=== PATIENT | female | born 1975 | race Caucasian/White ===

== ENCOUNTER 2017-01-29 15:07 | Emergency (ER) | payer SELFPAY ==
[2017-01-29 15:11] VITALS: BP 134/77; BMI 35.6
--- NOTE | 2017-01-29 15:35 | DR.GENAD ---
HPI - PCP Primary Care Physician: SURINDER - HPI Comment HPI Comment: PATIENT SARTED WITH N/V/D YESTERDAY. SHE IS WEAK AND DIZZY. NO FEVER. ABDOMEN IS CRAMPING. SHE IS A DIABETIC ON INSULIN. ORAL INTAKE IS DECREASE. NO HISTORY OF GASTROPARESIS. - Complaint/Symptoms Chief Complaint Doctors Comments: N/V/D AND ABDOMINAL PAIN TIMES ONE DAY. Chief Complaint:: PT. C/O N/V/D, ABDOMINAL PAIN, KIDNEY PAIN, CHILLS, SWEATS, LIGHTHEADEDNESS. - Nurses notes reviewed Nurses Notes Review: Yes - Source History Provided: Patient - Mode of Arrival Mode of Arrival: Ambulatory - Timing Onset of Chief Complaint: 01/28/17 Came on: Suddenly - Duration Duration: Constant Duration: Days - Severity Severity: Moderate PMH - PMH Past Medical History: Yes Past Medical History: Angina, Arthritis, Diabetes, Dyslipidemia, Hypothyroidism Past Surgical History: Yes Surgical History: , Cholecystectomy, Hysterectomy, Tonsillectomy - Family History History of Family Medical Conditions: Yes Family Medical History: Diabetes Mellitus, Cancer, [place], Heart Failure, Hypertension - Social History Does patient currently use any type of tobacco product: Yes Have you used tobacco products in the last 12 months: Yes Type of Tobacco Use: Cigarettes How many years tobacco product used: 10 Does any household member use tobacco: No Alcohol Use: Rarely Do you use any recreational Drugs:: No Lives With: Family Lives Where: Home - infectious screening In the last 2 months have you had wt loss of >10#?: NO Have you had fever, night sweats or hemotysis?: No Have you traveled outside the country in the last 6 months?: No Isolation: Standard ROS - Review of Systems Constitutional: Chills, Diaphoresis, Weakness, Fatigue, Loss of Appetite. negative: Fever Eyes: No Symptoms Reported. negative: Eye Pain, Discharge ENTM: No Symptoms Reported. negative: Ear Pain, Nose Discharge, Nose Congestion , Throat Pain Respiratoy: No Symptoms Reported. negative: Productive Cough, Non-Productive Cough, Short of Breath, Wheezing, Hemoptysis Cardiovascular: No Symptoms Reported. negative: Chest Pain, Edema Gastrointestinal/Abdominal: Abdominal Pain, Diarrhea, Nausea, Vomiting Genitourinary: No Symptoms Reported. negative: Dysuria, Frequency, Hematuria Neurological: Weakness, Dizziness. negative: Headache Musculoskeletal: Muscle Pain Integumentary: No Symptoms Reported Hematologic/Lymphatic: No Symptoms Reported Endocrine: Increased Thirst. negative: Increased Urine (DECREASE) All Other Systems: Reviewed and Negative PE - Vital Signs Vitals: Temperature 98.1 F Pulse Rate 95 Respiratory Rate 16 Blood Pressure [Right Arm] 130/76 Blood Pressure 134/77 O2 Sat by Pulse Oximetry 97 - General Limitations: No Limitations General Appearance: Alert - Head Head Exam: Normal Inspection - Eyes Eye exam: Normal Appearance - ENT ENT Exam: Normal External Ear Exam TM/Canal Exam: Bilateral Normal Nose Exam: Normal Nose Exam Mouth Exam: Normal Inspection Throat Exam: Normal Inspection - Neck Neck Exam: Trachea Midline. negative: Tenderness, Meningismus, Lymphadenopathy - Chest Chest Inspection: Symmetric Chest Wall Rise - Respiratory Respiratory Exam: Normal Lung Sounds Bilat Respiratory Exam: Bilateral Clear to Auscultation - Cardiovascular Cardiovascular Exam: Regular Rate, Normal Rhythm, Normal Heart Sounds - Abdominal Exam Abdominal Exam: Normal Bowel Sounds, Soft, Tenderness Abdominal Tenderness: Diffuse, Moderate - Extremities Extremities Exam: Normal Inspection - Back Back Exam: Normal Inspection - Neurologic Neurological Exam: Alert, Oriented X3, CN II-XII Intact, Normal Gait, Reflexes Normal. negative: Motor Sensory Deficit - Psychiatric Psychiatric Exam: Normal Affect, Normal Mood - Skin Skin Exam: Normal Color MDM - Differential Diagnosis Differential Diagnosis: ABDOMINAL PAIN, GASTROENTERITIS, UTI, BOWEL OBSTRUCTION , DKA Course - Treatment Treatment: SEE ORDERS. - Education/Counseling Education/Counseling: Patient, Education Educated On: Diagnosis, Needs for Follow Up ROR - Labs Reviewed Laboratory Results Reviewed?: Yes Result Diagrams: 01/29/17 16:18 01/29/17 16:18 Laboratory: WBC 9.5 X10^3/uL (3.6-10.0) 01/29/17 16:18 RBC 4.94 X10^6/uL (3.5-5.4) 01/29/17 16:18 Hgb 15.4 g/dL (12.0-16.0) 01/29/17 16:18 Hct 44.5 % (36.0-47.0) 01/29/17 16:18 MCV 90.1 fL (80.0-100.0) 01/29/17 16:18 MCH 31.2 pg (27.0-34.0) 01/29/17 16:18 MCHC 34.7 g/dL (33.0-35.0) 01/29/17 16:18 RDW 13.2 % (11.6-16.5) 01/29/17 16:18 Plt Count 244 X10^3/uL (150.0-450.0) 01/29/17 16:18 MPV 9.2 fL (7.4-11.0) 01/29/17 16:18 Neut % 59.2 % (42.0-75.0) 01/29/17 16:18 Lymph % 28.7 % (21.0-51.0) 01/29/17 16:18 [place] % 5.4 % (0.0-13.0) 01/29/17 16:18 Eos % 5.8 % (0.9-2.9) H 01/29/17 16:18 Baso % 0.9 % (0.2-1.0) 01/29/17 16:18 Neut # 5.7 x10^3/uL (2.2-4.8) H 01/29/17 16:18 Lymph # 2.7 X10^3/uL (1.3-2.9) 01/29/17 16:18 [place] # 0.5 x10^3/uL (0.3-0.8) 01/29/17 16:18 Eos # 0.6 x10^3/uL (0.0-0.2) H 01/29/17 16:18 Baso # 0.1 X10^3/uL (0.0-0.1) 01/29/17 16:18 Absolute Nucleated RBC 0.0 /100WBC 01/29/17 16:18 Sodium 138 mmol/L (136-145) 01/29/17 16:18 Corrected Sodium 142 mmol/L (136-145) 01/29/17 16:18 Potassium 4.0 mmol/L (3.5-5.1) 01/29/17 16:18 Chloride 101 mmol/L (98-107) 01/29/17 16:18 Carbon Dioxide 24.9 mmol/L (21-32) 01/29/17 16:18 BUN 9 mg/dL (7-18) 01/29/17 16:18 Creatinine 0.87 mg/dL (0.55-1.02) 01/29/17 16:18 Est GFR (MDRD) Af Amer > 60 (>60) 01/29/17 16:18 Est GFR (MDRD) Non-Af > 60 (>60) 01/29/17 16:18 Glucose 263 mg/dL (65-99) H 01/29/17 16:18 Calcium 9.0 mg/dL (8.5-10.1) 01/29/17 16:18 Corrected Calcium TNP 01/29/17 16:18 Total Bilirubin 0.50 mg/dL (0.2-1.0) 01/29/17 16:18 AST 12 Units/L (15-37) L 01/29/17 16:18 ALT 15 Units/L (12-78) 01/29/17 16:18 Alkaline Phosphatase 93 Units/L (46-116) 01/29/17 16:18 Total Protein 7.4 g/dL (6.4-8.2) 01/29/17 16:18 Albumin 3.7 g/dL (3.4-5.0) 01/29/17 16:18 Globulin 3.7 g/dL (2.5-4.5) 01/29/17 16:18 Albumin/Globulin Ratio 1.0 Ratio (1.1-2.1) L 01/29/17 16:18 Amylase 23 Units/L (25-115) L 01/29/17 16:18 Lipase 87 Units/L (73-393) 01/29/17 16:18 Specimen Type Clean catch urine 01/29/17 15:50 Urine Color Yellow (YELLOW) 01/29/17 15:50 Urine Appearance Clear (CLEAR) 01/29/17 15:50 Urine pH 5.0 (5.0 - 8.0) 01/29/17 15:50 Ur Specific [place] 1.015 (1.000-1.030) 01/29/17 15:50 Urine Protein Negative (NEGATIVE) 01/29/17 15:50 Urine Glucose (UA) 4+ (NEGATIVE) 01/29/17 15:50 Urine Ketones Negative (NEGATIVE) 01/29/17 15:50 Urine Occult Blood Negative (NEGATIVE) 01/29/17 15:50 Urine Nitrite Negative (NEGATIVE) 01/29/17 15:50 Urine Bilirubin Negative (NEGATIVE) 01/29/17 15:50 Urine Urobilinogen Normal (NORMAL) 01/29/17 15:50 Ur Leukocyte Esterase 1+ (NEGATIVE) 01/29/17 15:50 Urine RBC 0-1 /HPF (NEGATIVE) 01/29/17 15:50 Urine WBC 1-2 /HPF (NEGATIVE) 01/29/17 15:50 Ur Squamous Epith Cells Few /HPF (NEGATIVE) 01/29/17 15:50 Urine Bacteria Trace /HPF (NEGATIVE) 01/29/17 15:50 Urine Yeast Few /HPF (NEGATIVE) 01/29/17 15:50 Ur Culture Indicated? No/not indicated 01/29/17 15:50 Acetone, Semi-Quant Negative (NEGATIVE) 01/29/17 16:18 - XRAY XRAY Interpreted by: Radiologist XRAY Findings: REPORT DISCUSS WITH PATIENT. - Diagnosis Discharge Problem: Candidal urinary tract infection, Gastroenteritis - Discharge Plan Disposition: HOME, SELF-CARE Condition: Stable Prescriptions: Diphenoxylate/Atropine [Lomotil] 1 tab PO TID PRN #15 tab PRN Reason: Fluconazole [DIFLUCAN TAB 150 MG *] 150 mg PO ONCE #2 tab Ondansetron HCl [Zofran Tab 4 mg] 4 mg PO Q8H PRN #15 tab PRN Reason: Nausea/Vomiting - Follow ups/Referrals Follow ups/Referrals: DIANA CADENA [Primary Care Provider] - 2 days - Instructions Instructions: Viral Gastroenteritis, Adult, Vgor-ag-[id number], Abdominal Pain, Adult , Ustq-yz-[id number] Additional Instructions: RETURN TO ED IF WORSE.
[2017-01-29] MEDS ORDERED: ZOFRAN INJ 4 MG VIAL IM ONE (15:39)
[2017-01-29] MEDS ORDERED: ZOFRAN INJ 4 MG VIAL ONE (15:40)
[2017-01-29 16:05] LABS: BILIRUBIN,URINE NEGATIVE (NEGATIVE); BLOOD/HEMOGLOBIN,URINE NEGATIVE (NEGATIVE); GLUCOSE, URINE 4+ (NEGATIVE); KETONES,URINE NEGATIVE (NEGATIVE); LEUKOCYTE ESTERASE ,URINE 1+ (NEGATIVE); NITRITES,URINE NEGATIVE (NEGATIVE); PROTEIN,URINE NEGATIVE (NEGATIVE); UROBILINOGEN,URINE NORMAL (NORMAL)
--- NOTE | 2017-01-29 16:11 | RAD ---
HISTORY: Abdominal pain, nausea, vomiting Study: Acute abdominal series Comparison: 02/23/2015 Findings: The lungs are clear without consolidation, effusion or pneumothorax. The cardiac and mediastinal co ntours are within normal limits. Flat plate and upright evaluation of the abdomen demonstrates a normal bowel gas pattern. No gross f ree intraperitoneal air. No pathological soft tissue mass or calcification can be observed. The bon y structures are grossly intact. Cholecystectomy clips noted. IMPRESSION: 1. No acute cardiopulmonary disease. 2. No evidence of acute abdominal pathology. Reported By:
[2017-01-29 16:25] LABS: APPEARANCE,URINE CLEAR (CLEAR); BACTERIA,URINE TRACE /HPF (NEGATIVE); COLOR,URINE YELLOW (YELLOW); RBC,URINE 0-1 /HPF (NEGATIVE); SQUAMOUS EPITHELIAL CELL,UR FEW /HPF (NEGATIVE)
[2017-01-29 16:26] LABS: YEAST,URINE FEW /HPF (NEGATIVE)
[2017-01-29 16:37] LABS: BASOPHILS # (AUTO) 0.1 X10^3/uL (0.0-0.1); BASOPHILS % (AUTO) 0.9 % (0.2-1.0); EOSINOPHILS # (AUTO) 0.6 x10^3/uL (0.0-0.2); EOSINOPHILS % (AUTO) 5.8 % (0.9-2.9); HEMATOCRIT 44.5 % (36.0-47.0); HEMOGLOBIN 15.4 g/dL (12.0-16.0); LYMPHOCYTES # (AUTO) 2.7 X10^3/uL (1.3-2.9); LYMPHOCYTES % (AUTO) 28.7 % (21.0-51.0); MEAN CORPUSCULAR HEMOGLOBIN 31.2 pg (27.0-34.0); MEAN CORPUSCULAR HGB CONC 34.7 g/dL (33.0-35.0); MEAN CORPUSCULAR VOLUME 90.1 fL (80.0-100.0); MEAN PLATELET VOLUME 9.2 fL (7.4-11.0); MONOCYTES # (AUTO) 0.5 x10^3/uL (0.3-0.8); MONOCYTES % (AUTO) 5.4 % (0.0-13.0); NEUTROPHILS # (AUTO) 5.7 x10^3/uL (2.2-4.8); NEUTROPHILS % (AUTO) 59.2 % (42.0-75.0); PLATELET COUNT 244 X10^3/uL (150.0-450.0); RED BLOOD COUNT 4.94 X10^6/uL (3.5-5.4); RED CELL DISTRIBUTION WIDTH 13.2 % (11.6-16.5); WHITE BLOOD COUNT 9.5 X10^3/uL (3.6-10.0)
[2017-01-29 16:58] LABS: ALANINE AMINOTRANSFERASE 15 Units/L (12-78); ALBUMIN 3.7 g/dL (3.4-5.0); ALKALINE PHOSPHATASE 93 Units/L (46-116); AMYLASE 23 Units/L (25-115); ASPARTATE AMINO TRANSFERASE 12 Units/L (15-37); BLOOD UREA NITROGEN 9 mg/dL (7-18); CARBON DIOXIDE 24.9 mmol/L (21-32); CHLORIDE 101 mmol/L (98-107); COR NA(FOR HYPERGLY) 142 mmol/L (136-145); CREATININE 0.87 mg/dL (0.55-1.02); GLUCOSE 263 mg/dL (65-99); LIPASE 87 Units/L (73-393); SODIUM 138 mmol/L (136-145); TOTAL PROTEIN 7.4 g/dL (6.4-8.2); eGFR BLACK RACES > 60 (>60); eGFR NON BLACK RACES > 60 (>60)
== END 2017-01-29 18:23 | disposition home or self-care (01) ==
LOC: ER 15:21
DX: N39.0 Urinary tract infection, site not specified (principal); B37.49 Other urogenital candidiasis; K52.89 Other specified noninfective gastroenteritis and colitis
CPT/HCPCS: 36415; 74022; 80053; 81001; 82009; 82150; 83690; 85025; 96372; 99283; J2405

== ENCOUNTER 2017-10-16 00:26 | Emergency (ER) | payer SELFPAY ==
[2017-10-16 00:37] VITALS: BMI 29.2
--- NOTE | 2017-10-16 01:07 | DR.GENAD ---
HPI - PCP Primary Care Physician: CADENA - Complaint/Symptoms Chief Complaint:: STOMACH PAIN; VOMITING BILE; PAIN ON LEFT SIDE OF ABDOMEN AND BACK; PAIN UPON URINATION; HYSTERECTOMY YEARS AGO - Source History Provided: Patient - Mode of Arrival Mode of Arrival: Ambulatory - Timing Onset of Chief Complaint: 10/13/17 PMH - PMH Past Medical History: Yes Past Medical History: Coronary Artery Disease, Depression, Diabetes, Hypothyroidism Past Medical History Comment: TAKEN HUMULOG BID Past Surgical History: Yes Surgical History: , Cholecystectomy Past Surgical History Comment: HERNIA REPAIR - Family History History of Family Medical Conditions: No Family Medical History: Diabetes Mellitus, Cancer, [place], Heart Failure, Hypertension - Social History Alcohol Use: None Do you use any recreational Drugs:: No Lives With: Alone - infectious screening In the last 2 months have you had wt loss of >10#?: NO Have you had fever, night sweats or hemotysis?: No Have you traveled outside the country in the last 6 months?: No Isolation: Standard PE - Vital Signs Vitals: Temperature 97.3 F Pulse Rate 81 Respiratory Rate 22 Blood Pressure [Right Arm] 130/76 Blood Pressure 148/67 O2 Sat by Pulse Oximetry 95 ROR - Labs Reviewed Result Diagrams: 10/16/17 01:18 10/16/17 01:18 Laboratory: WBC 9.9 X10^3/uL (3.6-10.0) 10/16/17 01:18 RBC 4.28 X10^6/uL (3.5-5.4) 10/16/17 01:18 Hgb 13.5 g/dL (12.0-16.0) 10/16/17 01:18 Hct 39.6 % (36.0-47.0) 10/16/17 01:18 MCV 92.4 fL (80.0-100.0) 10/16/17 01:18 MCH 31.6 pg (27.0-34.0) 10/16/17 01:18 MCHC 34.2 g/dL (33.0-35.0) 10/16/17 01:18 RDW 13.0 % (11.6-16.5) 10/16/17 01:18 Plt Count 306 X10^3/uL (150.0-450.0) 10/16/17 01:18 MPV 8.5 fL (7.4-11.0) 10/16/17 01:18 Neut % 43.5 % (42.0-75.0) 10/16/17 01:18 Lymph % 37.3 % (21.0-51.0) 10/16/17 01:18 [place] % 7.6 % (0.0-13.0) 10/16/17 01:18 Eos % 10.5 % (0.9-2.9) H 10/16/17 01:18 Baso % 1.1 % (0.2-1.0) H 10/16/17 01:18 Neut # 4.3 x10^3/uL (2.2-4.8) 10/16/17 01:18 Lymph # 3.7 X10^3/uL (1.3-2.9) H 10/16/17 01:18 [place] # 0.7 x10^3/uL (0.3-0.8) 10/16/17 01:18 Eos # 1.0 x10^3/uL (0.0-0.2) H 10/16/17 01:18 Baso # 0.1 X10^3/uL (0.0-0.1) 10/16/17 01:18 Absolute Nucleated RBC 0.1 /100WBC 10/16/17 01:18 Sodium 136 mmol/L (136-145) 10/16/17 01:18 Corrected Sodium 143 mmol/L (136-145) 10/16/17 01:18 Potassium 4.6 mmol/L (3.5-5.1) 10/16/17 01:18 Chloride 99 mmol/L (98-107) 10/16/17 01:18 Carbon Dioxide 28.3 mmol/L (21-32) 10/16/17 01:18 BUN 13 mg/dL (7-18) 10/16/17 01:18 Creatinine 0.94 mg/dL (0.55-1.02) 10/16/17 01:18 Est GFR (MDRD) Af Amer > 60 (>60) 10/16/17 01:18 Est GFR (MDRD) Non-Af > 60 (>60) 10/16/17 01:18 Glucose 388 mg/dL (65-99) H 10/16/17 01:18 Calcium 8.8 mg/dL (8.5-10.1) 10/16/17 01:18 Corrected Calcium TNP 10/16/17 01:18 Total Bilirubin 0.20 mg/dL (0.2-1.0) 10/16/17 01:18 AST 7 Units/L (15-37) L 10/16/17 01:18 ALT 18 Units/L (12-78) 10/16/17 01:18 Alkaline Phosphatase 113 Units/L (46-116) 10/16/17 01:18 C-Reactive Protein 3.00 mg/L (0-3.0) 10/16/17 01:18 Total Protein 7.0 g/dL (6.4-8.2) 10/16/17 01:18 Albumin 3.4 g/dL (3.4-5.0) 10/16/17 01:18 Globulin 3.6 g/dL (2.5-4.5) 10/16/17 01:18 Albumin/Globulin Ratio 0.9 Ratio (1.1-2.1) L 10/16/17 01:18 Lipase 242 Units/L (73-393) 10/16/17 01:18 Specimen Type Clean catch urine 10/16/17 00:44 Urine Color Yellow (YELLOW) 10/16/17 00:44 Urine Appearance Clear (CLEAR) 10/16/17 00:44 Urine pH 6.0 (5.0 - 8.0) 10/16/17 00:44 Ur Specific [place] 1.015 (1.000-1.030) 10/16/17 00:44 Urine Protein Negative (NEGATIVE) 10/16/17 00:44 Urine Glucose (UA) 4+ (NEGATIVE) 10/16/17 00:44 Urine Ketones Negative (NEGATIVE) 10/16/17 00:44 Urine Occult Blood Negative (NEGATIVE) 10/16/17 00:44 Urine Nitrite Negative (NEGATIVE) 10/16/17 00:44 Urine Bilirubin Negative (NEGATIVE) 10/16/17 00:44 Urine Urobilinogen Normal (NORMAL) 10/16/17 00:44 Ur Leukocyte Esterase Negative (NEGATIVE) 10/16/17 00:44 Urine RBC 0-3 /HPF (NEGATIVE) 10/16/17 00:44 Urine WBC 0-3 /HPF (NEGATIVE) 10/16/17 00:44 Ur Squamous Epith Cells Rare /HPF (NEGATIVE) 10/16/17 00:44 Urine Bacteria Negative /HPF (NEGATIVE) 10/16/17 00:44 Ur Culture Indicated? No/not indicated 10/16/17 00:44 Acetone, Semi-Quant Negative (NEGATIVE) 10/16/17 01:18 H. pylori IgG Antibody Negative (NEGATIVE) 10/16/17 01:18 - XRAY XRAY Interpreted by: Radiologist (KUB: The lungs are clear without focal infiltrate or effusion. The bony thorax is unremarkable. Flat and upright evaluation of the abdomen demonstrates a mild increased amount of fecal material within the rectum and colon. No pathological soft tissue mass or calcification can be observed. The bony structures are grossly intack. Impression: No acute cardiopulmonary disease. Mild constipation) - Diagnosis Discharge Problem: Elevated serum glucose Constipation Qualifiers: Constipation type: slow transit constipation Qualified Code(s): K59.01 - Slow transit constipation - Discharge Plan Condition: Stable - Follow ups/Referrals Follow ups/Referrals: DIANA CADENA [Primary Care Provider] - 3 days - Instructions
[2017-10-16] MEDS ORDERED: NS 1000 ML 1,000 ML IV ONE (01:08)
[2017-10-16 01:09] LABS: BILIRUBIN,URINE NEGATIVE (NEGATIVE); BLOOD/HEMOGLOBIN,URINE NEGATIVE (NEGATIVE); GLUCOSE, URINE 4+ (NEGATIVE); KETONES,URINE NEGATIVE (NEGATIVE); LEUKOCYTE ESTERASE ,URINE NEGATIVE (NEGATIVE); NITRITES,URINE NEGATIVE (NEGATIVE); PROTEIN,URINE NEGATIVE (NEGATIVE); UROBILINOGEN,URINE NORMAL (NORMAL)
[2017-10-16] MEDS ORDERED: NS 1000 ML 1,000 ML ONE (01:09)
[2017-10-16 01:16] LABS: APPEARANCE,URINE CLEAR (CLEAR); BACTERIA,URINE NEGATIVE /HPF (NEGATIVE); COLOR,URINE YELLOW (YELLOW); RBC,URINE 0-3 /HPF (NEGATIVE); SQUAMOUS EPITHELIAL CELL,UR RARE /HPF (NEGATIVE)
[2017-10-16 01:30] LABS: BASOPHILS # (AUTO) 0.1 X10^3/uL (0.0-0.1); BASOPHILS % (AUTO) 1.1 % (0.2-1.0); EOSINOPHILS % (AUTO) 10.5 % (0.9-2.9); HEMATOCRIT 39.6 % (36.0-47.0); HEMOGLOBIN 13.5 g/dL (12.0-16.0); LYMPHOCYTES # (AUTO) 3.7 X10^3/uL (1.3-2.9); LYMPHOCYTES % (AUTO) 37.3 % (21.0-51.0); MEAN CORPUSCULAR HEMOGLOBIN 31.6 pg (27.0-34.0); MEAN CORPUSCULAR HGB CONC 34.2 g/dL (33.0-35.0); MEAN CORPUSCULAR VOLUME 92.4 fL (80.0-100.0); MEAN PLATELET VOLUME 8.5 fL (7.4-11.0); MONOCYTES # (AUTO) 0.7 x10^3/uL (0.3-0.8); MONOCYTES % (AUTO) 7.6 % (0.0-13.0); NEUTROPHILS # (AUTO) 4.3 x10^3/uL (2.2-4.8); NEUTROPHILS % (AUTO) 43.5 % (42.0-75.0); PLATELET COUNT 306 X10^3/uL (150.0-450.0); RED BLOOD COUNT 4.28 X10^6/uL (3.5-5.4); WHITE BLOOD COUNT 9.9 X10^3/uL (3.6-10.0)
[2017-10-16 01:37] LABS: ALANINE AMINOTRANSFERASE 18 Units/L (12-78); ALBUMIN 3.4 g/dL (3.4-5.0); ALKALINE PHOSPHATASE 113 Units/L (46-116); ASPARTATE AMINO TRANSFERASE 7 Units/L (15-37); BLOOD UREA NITROGEN 13 mg/dL (7-18); CALCIUM 8.8 mg/dL (8.5-10.1); CARBON DIOXIDE 28.3 mmol/L (21-32); CHLORIDE 99 mmol/L (98-107); COR NA(FOR HYPERGLY) 143 mmol/L (136-145); CREATININE 0.94 mg/dL (0.55-1.02); LIPASE 242 Units/L (73-393); SODIUM 136 mmol/L (136-145); eGFR BLACK RACES > 60 (>60); eGFR NON BLACK RACES > 60 (>60)
--- NOTE | 2017-10-16 01:59 | RAD ---
Acute abdominal series Indication: Abdominal pain Comparison: None available Findings: The trachea is midline. The cardiac silhouette is unremarkable. The lungs are clear without focal i nfiltrate or effusion. The bony thorax is unremarkable. Flat and upright evaluation of the abdomen demonstrates a mild increased amount of fecal material wit hin the rectum and colon. No pathological soft tissue mass or calcification can be observed. The bon y structures are grossly intact. IMPRESSION: 1. No acute cardiopulmonary disease. 2. Mild constipation. Reported By:
[2017-10-16] MEDS ORDERED: HumuLIN R SUBCUT PRN (02:44)
[2017-10-16] MEDS ORDERED: HumuLIN R ONE (02:45)
[2017-10-16] MEDS ORDERED: CITROMA PO ONE (02:47)
[2017-10-16] MEDS ORDERED: CITROMA ONE (02:50)
[2017-10-16 02:56] VITALS: BP 116/80
[2017-10-16] MEDS ORDERED: SNACK - Diabetic Appropriate PO SCH (20:00)
== END 2017-10-16 02:54 | disposition home or self-care (01) ==
LOC: ER 00:26
DX: K59.01 Slow transit constipation (principal); R73.09 Other abnormal glucose
CPT/HCPCS: 36415; 74022; 80053; 81001; 82009; 83690; 85025; 86140; 86677; 96365; 96372; 99283; A4222; J1815

== ENCOUNTER 2018-01-19 13:32 | Emergency (ER) | payer SELFPAY ==
[2018-01-19 13:35] VITALS: BP 113/57; BMI 29.2
--- NOTE | 2018-01-19 14:22 | DR.GENAD ---
HPI - HPI Comment HPI Comment: VOICE CHANGE SLIGHTLY. GETTING WORSE. PATIENT IS A DIABETIC ON LANTUS AND HUMALIN R INSULIN. - Complaint/Symptoms Chief Complaint Doctors Comments: SORE THROAT, COUGH, HEADACHE AND DIZZINESS TIMES ONE ASSOCIATED WITH CHILLS. Chief Complaint:: PT. C/O SORE THROAT, HEADACHE, BURNING IN THROAT AND CHEST, COUGH, DIZZINESS AND CHILLS. - Nurses notes reviewed Nurses Notes Review: Yes - Source History Provided: Patient - Mode of Arrival Mode of Arrival: Ambulatory - Timing Onset of Chief Complaint: 01/18/18 Came on: Suddenly - Duration Duration: Constant Duration: Days - Severity Severity: Moderate PMH - PMH Past Medical History: Yes Past Medical History: Coronary Artery Disease, Depression, Diabetes, Hypothyroidism Past Surgical History: Yes Surgical History: , Cholecystectomy, Hysterectomy - Family History History of Family Medical Conditions: Yes Family Medical History: Diabetes Mellitus, Cancer, [place], Heart Failure, Hypertension - Social History Does patient currently use any type of tobacco product: Yes Have you used tobacco products in the last 12 months: Yes Type of Tobacco Use: Cigarettes Does any household member use tobacco: No Alcohol Use: None Do you use any recreational Drugs:: No Lives With: Family Lives Where: Home - infectious screening In the last 2 months have you had wt loss of >10#?: NO Have you had fever, night sweats or hemotysis?: No Have you traveled outside the country in the last 6 months?: No Isolation: Standard ROS - Review of Systems Constitutional: Chills, Weakness, Fatigue Eyes: No Symptoms Reported. negative: Eye Pain, Discharge ENTM: Nose Discharge, Nose Congestion, Throat Pain. negative: Ear Discharge Respiratoy: Productive Cough (BROWN SPUTUM), Short of Breath. negative: Wheezing, Hemoptysis Cardiovascular: Chest Pain. negative: Edema Gastrointestinal/Abdominal: negative: Abdominal Pain, Diarrhea, Nausea, Vomiting Genitourinary: negative: Dysuria, Frequency, Hematuria Neurological: Headache, Weakness, Dizziness Musculoskeletal: Muscle Pain Integumentary: No Symptoms Reported Hematologic/Lymphatic: No Symptoms Reported Endocrine: Increased Thirst. negative: Flushing All Other Systems: Reviewed and Negative PE - Vital Signs Vitals: Temperature 97.4 F Pulse Rate 87 Respiratory Rate 16 Blood Pressure [Right Arm] 116/80 Blood Pressure 113/57 O2 Sat by Pulse Oximetry 97 - General Limitations: No Limitations General Appearance: Alert - Head Head Exam: Normal Inspection - Eyes Eye exam: Normal Appearance - ENT ENT Exam: Normal External Ear Exam External Ear Exam: Normal External Inspection TM/Canal Exam: Bilateral Normal Nose Exam: Normal Nose Exam Mouth Exam: Normal Inspection Throat Exam: Normal Inspection - Neck Neck Exam: Trachea Midline - Chest Chest Inspection: Symmetric Chest Wall Rise - Respiratory Respiratory Exam: Normal Lung Sounds Bilat Respiratory Exam: Bilateral Clear to Auscultation - Cardiovascular Cardiovascular Exam: Regular Rate, Normal Rhythm, Normal Heart Sounds - Abdominal Exam Abdominal Exam: Normal Bowel Sounds, Soft. negative: Tenderness - Extremities Extremities Exam: Tenderness - Back Back Exam: Normal Inspection - Neurologic Neurological Exam: Alert, Oriented X3 - Psychiatric Psychiatric Exam: Normal Affect, Normal Mood - Skin Skin Exam: Normal Color MDM - Additional Information Additional Information Obtained From: Family Course - Treatment Treatment: SEE ORDERS. - Education/Counseling Education/Counseling: Patient, Family, Education Educated On: Diagnosis, Needs for Follow Up ROR - Labs Reviewed Laboratory Results Reviewed?: Yes Result Diagrams: 01/19/18 15:21 01/19/18 15:21 Laboratory: WBC 8.1 X10^3/uL (3.6-10.0) 01/19/18 15:21 RBC 4.18 X10^6/uL (3.5-5.4) 01/19/18 15:21 Hgb 12.2 g/dL (12.0-16.0) 01/19/18 15:21 Hct 36.4 % (36.0-47.0) 01/19/18 15:21 MCV 87.1 fL (80.0-100.0) 01/19/18 15:21 MCH 29.2 pg (27.0-34.0) 01/19/18 15:21 MCHC 33.5 g/dL (33.0-35.0) 01/19/18 15:21 RDW 14.0 % (11.6-16.5) 01/19/18 15:21 Plt Count 279 X10^3/uL (150.0-450.0) 01/19/18 15:21 MPV 8.6 fL (7.4-11.0) 01/19/18 15:21 Neut % (Auto) 51.3 % (42.0-75.0) 01/19/18 15:21 Lymph % (Auto) 30.9 % (21.0-51.0) 01/19/18 15:21 [place] % (Auto) 6.9 % (0.0-13.0) 01/19/18 15:21 Eos % (Auto) 9.7 % (0.9-2.9) H 01/19/18 15:21 Baso % (Auto) 1.2 % (0.2-1.0) H 01/19/18 15:21 Neut # (Auto) 4.2 x10^3/uL (2.2-4.8) 01/19/18 15:21 Lymph # (Auto) 2.5 X10^3/uL (1.3-2.9) 01/19/18 15:21 [place] # (Auto) 0.6 x10^3/uL (0.3-0.8) 01/19/18 15:21 Eos # (Auto) 0.8 x10^3/uL (0.0-0.2) H 01/19/18 15:21 Baso # (Auto) 0.1 X10^3/uL (0.0-0.1) 01/19/18 15:21 Absolute Nucleated RBC 0.1 /100WBC 01/19/18 15:21 Sodium 135 mmol/L (136-145) L 01/19/18 15:21 Corrected Sodium 144 mmol/L (136-145) 01/19/18 15:21 Potassium 4.4 mmol/L (3.5-5.1) 01/19/18 15:21 Chloride 99 mmol/L (98-107) 01/19/18 15:21 Carbon Dioxide 25.8 mmol/L (21-32) 01/19/18 15:21 BUN 11 mg/dL (7-18) 01/19/18 15:21 Creatinine 0.85 mg/dL (0.55-1.02) 01/19/18 15:21 Est GFR (MDRD) Af Amer > 60 (>60) 01/19/18 15:21 Est GFR (MDRD) Non-Af > 60 (>60) 01/19/18 15:21 Glucose 472 mg/dL (65-99) H 01/19/18 15:21 POC Glucose (mg/dL) 265 mg/dL (65-99) H 01/19/18 17:46 Calcium 8.4 mg/dL (8.5-10.1) L 01/19/18 15:21 Corrected Calcium TNP 01/19/18 15:21 Total Bilirubin 0.40 mg/dL (0.2-1.0) 01/19/18 15:21 AST 9 Units/L (15-37) L 01/19/18 15:21 ALT 18 Units/L (12-78) 01/19/18 15:21 Alkaline Phosphatase 109 Units/L (46-116) 01/19/18 15:21 Total Protein 6.8 g/dL (6.4-8.2) 01/19/18 15:21 Albumin 3.4 g/dL (3.4-5.0) 01/19/18 15:21 Globulin 3.4 g/dL (2.5-4.5) 01/19/18 15:21 Albumin/Globulin Ratio 1.0 Ratio (1.1-2.1) L 01/19/18 15:21 Specimen Type Clean catch urine 01/19/18 15:13 Urine Color Yellow (YELLOW) 01/19/18 15:13 Urine Appearance Clear (CLEAR) 01/19/18 15:13 Urine pH 6.0 (5.0 - 8.0) 01/19/18 15:13 Ur Specific [place] 1.015 (1.000-1.030) 01/19/18 15:13 Urine Protein Negative (NEGATIVE) 01/19/18 15:13 Urine Glucose (UA) 4+ (NEGATIVE) 01/19/18 15:13 Urine Ketones 2+ (NEGATIVE) 01/19/18 15:13 Urine Occult Blood Negative (NEGATIVE) 01/19/18 15:13 Urine Nitrite Negative (NEGATIVE) 01/19/18 15:13 Urine Bilirubin Negative (NEGATIVE) 01/19/18 15:13 Urine Urobilinogen Normal (NORMAL) 01/19/18 15:13 Ur Leukocyte Esterase Negative (NEGATIVE) 01/19/18 15:13 Acetone, Semi-Quant Small (NEGATIVE) H 01/19/18 15:21 Influenza Type A (PCR) Negative (NEGATIVE) 01/19/18 14:23 Influenza Type B (PCR) Negative (NEGATIVE) 01/19/18 14:23 S. pyogenes (TEM-PCR) Not detected (NOT DETECT) 01/19/18 14:23 - XRAY XRAY Interpreted by: Radiologist XRAY Findings: REPORT DISCUSS WITH FAMILY AND PATIENT. - Diagnosis Discharge Problem: Hyperglycemia, Bronchitis, Sore throat Sinusitis Qualifiers: Sinusitis location: unspecified location Chronicity: acute Recurrence: not specified as recurrent Qualified Code(s): J01.90 - Acute sinusitis, unspecified - Discharge Plan Disposition: HOME, SELF-CARE Condition: Stable Prescriptions: Amoxicillin [Amoxil 875 mg] 875 mg PO Q12H #20 tab Benzonatate [TESSALON PERLES *] 200 mg PO TID PRN #10 cap PRN Reason: Cough - Follow ups/Referrals Follow ups/Referrals: DIANA CADENA [Primary Care Provider] - 01/20/18 - Instructions Instructions: Sinusitis, Adult, Hyperglycemia, [id number], Acute Bronchitis, Adult, [id number], Sore Throat, [id number] Additional Instructions: RETURN TO ED IF WORSE.
[2018-01-19] MEDS ORDERED: TORADOL 60 MG VIAL IM ONE (15:08)
[2018-01-19] MEDS ORDERED: TORADOL 60 MG VIAL ONE (15:11)
[2018-01-19 15:28] LABS: BASOPHILS # (AUTO) 0.1 X10^3/uL (0.0-0.1); BASOPHILS % (AUTO) 1.2 % (0.2-1.0); EOSINOPHILS # (AUTO) 0.8 x10^3/uL (0.0-0.2); EOSINOPHILS % (AUTO) 9.7 % (0.9-2.9); HEMATOCRIT 36.4 % (36.0-47.0); HEMOGLOBIN 12.2 g/dL (12.0-16.0); LYMPHOCYTES # (AUTO) 2.5 X10^3/uL (1.3-2.9); LYMPHOCYTES % (AUTO) 30.9 % (21.0-51.0); MEAN CORPUSCULAR HEMOGLOBIN 29.2 pg (27.0-34.0); MEAN CORPUSCULAR HGB CONC 33.5 g/dL (33.0-35.0); MEAN CORPUSCULAR VOLUME 87.1 fL (80.0-100.0); MEAN PLATELET VOLUME 8.6 fL (7.4-11.0); MONOCYTES # (AUTO) 0.6 x10^3/uL (0.3-0.8); MONOCYTES % (AUTO) 6.9 % (0.0-13.0); NEUTROPHILS # (AUTO) 4.2 x10^3/uL (2.2-4.8); NEUTROPHILS % (AUTO) 51.3 % (42.0-75.0); PLATELET COUNT 279 X10^3/uL (150.0-450.0); RED BLOOD COUNT 4.18 X10^6/uL (3.5-5.4); WHITE BLOOD COUNT 8.1 X10^3/uL (3.6-10.0)
[2018-01-19 15:28] LABS: BILIRUBIN,URINE NEGATIVE (NEGATIVE); BLOOD/HEMOGLOBIN,URINE NEGATIVE (NEGATIVE); GLUCOSE, URINE 4+ (NEGATIVE); KETONES,URINE 2+ (NEGATIVE); LEUKOCYTE ESTERASE ,URINE NEGATIVE (NEGATIVE); NITRITES,URINE NEGATIVE (NEGATIVE); PROTEIN,URINE NEGATIVE (NEGATIVE); UROBILINOGEN,URINE NORMAL (NORMAL)
[2018-01-19 15:34] LABS: APPEARANCE,URINE CLEAR (CLEAR); COLOR,URINE YELLOW (YELLOW)
[2018-01-19 15:40] LABS: ALANINE AMINOTRANSFERASE 18 Units/L (12-78); ALBUMIN 3.4 g/dL (3.4-5.0); ALKALINE PHOSPHATASE 109 Units/L (46-116); ASPARTATE AMINO TRANSFERASE 9 Units/L (15-37); BLOOD UREA NITROGEN 11 mg/dL (7-18); CALCIUM 8.4 mg/dL (8.5-10.1); CARBON DIOXIDE 25.8 mmol/L (21-32); CHLORIDE 99 mmol/L (98-107); COR NA(FOR HYPERGLY) 144 mmol/L (136-145); CREATININE 0.85 mg/dL (0.55-1.02); SODIUM 135 mmol/L (136-145); TOTAL PROTEIN 6.8 g/dL (6.4-8.2); eGFR BLACK RACES > 60 (>60); eGFR NON BLACK RACES > 60 (>60)
[2018-01-19] MEDS ORDERED: NS 1000 ML 1,000 ML IV ONE (16:16)
[2018-01-19] MEDS ORDERED: HumuLIN R IV ONE (16:21)
[2018-01-19] MEDS ORDERED: ROCEPHIN 1 GM IV PREMIX 1 GM/50 ML IV.SOLN. IV ONE ×2 (16:22→16:24)
[2018-01-19] MEDS ORDERED: NS 1000 ML 1,000 ML ONE (16:24)
[2018-01-19] MEDS ORDERED: HumuLIN R ONE (16:25)
--- NOTE | 2018-01-19 16:43 | RAD ---
Chest, AP portable Indication: Cough, cold symptoms Comparison: 10/16/2017 Findings: The cardiac silhouette is unremarkable. The lungs are essentially clear without dense infil trate or pleural effusion. Impression: No acute chest process. Reported By:
[2018-01-19] MEDS ORDERED: SNACK - Diabetic Appropriate PO SCH (20:00)
== END 2018-01-19 17:52 | disposition home or self-care (01) ==
LOC: ER 13:42
DX: J40 Bronchitis, not specified as acute or chronic (principal); R73.9 Hyperglycemia, unspecified; J01.80 Other acute sinusitis; J02.9 Acute pharyngitis, unspecified; Z72.0 Tobacco use
CPT/HCPCS: 36415; 71045; 80053; 81003; 82009; 85025; 87502; 87651; 96365; 96372; 96374; 96375; 99282; 99283; 99284; A4222; J0696; J1815; J1885

== ENCOUNTER 2018-01-23 08:36 | Emergency (ER) | payer SELFPAY ==
[2018-01-23 08:40] VITALS: BP 116/63; BMI 28.9
--- NOTE | 2018-01-23 09:06 | DR.URIAD ---
HPI - Time Seen Time seen: 09:00 - PCP Primary Care Physician: amber - HPI Comment HPI Comment: RECORD FROM 01/19/2018 REVIEWED. - Complaint Chief Complaint Doctors Comments: HISTORY BELOW. Chief Complaint:: PT C/O C/C/C HEADACHE AND SOB. PT STATES SHE WAS SEEN IN THE ER DEPT FRIDAY AND WAS DIAGNOSES WITH BRONCHITIS AND SINUSITIS. PT STATES SHE IS NOT GETTING ANY BETTER. PT STATES HER COUGH IS GETTING WORSE. PT STATES SHE CAN NOT GO AND SEE HER PCP BECAUSE SHE HAS NOT GOT PAID. NOTED NO BREATHING DISTRESS OR COUGHING. - Reviewed Nurses Notes Reviewed: Yes - Source History Provided: Patient - Mode of Arrival Mode of Arrival: Ambulatory - Timing Onset of Chief Complaint: 01/19/18 - Context Recent Treated Infections: None History of Respiratory: None - Quality Quality of Cough: Productive, Yellow Rhinorrhea: Green - Associated Signs and Symptoms Other Signs and Symptoms: Cough PMH - PMH Past Medical History: Yes Past Medical History: Coronary Artery Disease, Depression, Diabetes, Hypothyroidism Past Surgical History: Yes Surgical History: , Cholecystectomy, Hysterectomy - Family History History of Family Medical Conditions: Yes Family Medical History: Diabetes Mellitus, Cancer, PR, Heart Failure, Hypertension - Social History Does patient currently use any type of tobacco product: Yes Have you used tobacco products in the last 12 months: Yes Type of Tobacco Use: Cigarettes Does any household member use tobacco: Yes Alcohol Use: None Do you use any recreational Drugs:: No Lives With: Family Lives Where: Home - infectious screening In the last 2 months have you had wt loss of >10#?: NO Have you had fever, night sweats or hemotysis?: No Have you traveled outside the country in the last 6 months?: No Isolation: Standard ROS - Review of Systems Constitutional: Weakness, Fatigue Eyes: negative: Eye Pain, Discharge ENTM: Nose Congestion Respiratoy: Productive Cough Cardiovascular: Chest Pain Gastrointestinal/Abdominal: No Symptoms Reported Genitourinary: Other (LT FLANK PAIN) Neurological: Headache, Weakness, Dizziness Musculoskeletal: Muscle Pain Integumentary: No Symptoms Reported Hematologic/Lymphatic: No Symptoms Reported Endocrine: No Symptoms Reported All Other Systems: Reviewed and Negative PE - Vital Signs Vitals: Temperature 98.2 F Pulse Rate 89 Respiratory Rate 18 Blood Pressure [Right Arm] 116/80 Blood Pressure 116/63 O2 Sat by Pulse Oximetry 97 - General Limitations: No Limitations General Appearance: Alert - Head Head Exam: Normal Inspection - Eyes Eye exam: Normal Appearance - ENT ENT Exam: Normal External Ear Exam External Ear Exam: Normal External Inspection TM/Canal Exam: Bilateral Normal Mouth Exam: Normal Inspection Throat Exam: Normal Inspection - Neck Neck Exam: Trachea Midline - Chest Chest Inspection: Symmetric Chest Wall Rise - Respiratory Respiratory Exam: Normal Lung Sounds Bilat Respiratory Exam: Bilateral Rhonchi, Lower Rhonchi - Cardiovascular Cardiovascular Exam: Regular Rate, Normal Rhythm, Normal Heart Sounds - Abdominal Exam Abdominal Exam: Normal Bowel Sounds, Soft. negative: Tenderness - Extremeties Extremities Exam: Normal Inspection - Back Back Exam: Normal Inspection - Neurologic Neurological Exam: Alert, Oriented X3 - Psychiatric Psychiatric Exam: Normal Affect, Normal Mood - Skin Skin Exam: Normal Color MDM - Differential Diagnosis Differential Diagnosis: Pneumonia, Sinsusitis, URI Course - Treatment Treatment: SEE ORDERS. - Education/Counseling Education/Counseling: Patient, Education Educated On: Diagnosis, Needs for Follow Up ROR - Labs Reviewed Laboratory Results Reviewed?: Yes Result Diagrams: 01/23/18 09:29 01/23/18 09:29 Laboratory: WBC 11.1 X10^3/uL (3.6-10.0) H 01/23/18 09:29 RBC 4.54 X10^6/uL (3.5-5.4) 01/23/18 09:29 Hgb 13.2 g/dL (12.0-16.0) 01/23/18 09:29 Hct 39.2 % (36.0-47.0) 01/23/18 09:29 MCV 86.2 fL (80.0-100.0) 01/23/18 09:29 MCH 29.0 pg (27.0-34.0) 01/23/18 09:29 MCHC 33.6 g/dL (33.0-35.0) 01/23/18 09:29 RDW 14.0 % (11.6-16.5) 01/23/18 09:29 Plt Count 341 X10^3/uL (150.0-450.0) 01/23/18 09:29 MPV 8.2 fL (7.4-11.0) 01/23/18 09:29 Neut % (Auto) 64.0 % (42.0-75.0) 01/23/18 09:29 Lymph % (Auto) 24.4 % (21.0-51.0) 01/23/18 09: [place] % (Auto) 4.0 % (0.0-13.0) 01/23/18 09: Eos % (Auto) 6.9 % (0.9-2.9) H 01/23/18 09: Baso % (Auto) 0.7 % (0.2-1.0) 01/23/18 09: Neut # (Auto) 7.1 x10^3/uL (2.2-4.8) H 01/23/18 09: Lymph # (Auto) 2.7 X10^3/uL (1.3-2.9) 01/23/18 09: [place] # (Auto) 0.4 x10^3/uL (0.3-0.8) 01/23/18 09: Eos # (Auto) 0.8 x10^3/uL (0.0-0.2) H 01/23/18 09: Baso # (Auto) 0.1 X10^3/uL (0.0-0.1) 01/23/18 09: Absolute Nucleated RBC 0.0 /100WBC 01/23/18 09: D-Dimer < 100 ng/mL (0-400) 01/23/18 09:29 Sample Site Lra 01/23/18 09:25 ABG pH 7.450 (7.35-7.45) 01/23/18 09: ABG pCO2 36.0 mmHg (35.0-45.0) 01/23/18 09:25 ABG pO2 79.0 mmHg (80.0-100.0) L 01/23/18 09: ABG HCO3 25.0 mmol/L (22-26) 01/23/18 09:25 ABG O2 Saturation 96.0 % (90-100) 01/23/18 09: ABG Base Excess 1.2 mmol/L (-2.0-2.0) 01/23/18 09:25 Yared Test Pos 01/23/18 09:25 A-a Gradient 26.0 mmHg 01/23/18 09:25 FiO2 21.000 01/23/18 09:25 Blood Gas Comments Polly well cs 01/23/18 09:25 Sodium 138 mmol/L (136-145) 01/23/18 09:29 Corrected Sodium 142 mmol/L (136-145) 01/23/18 09:29 Potassium 4.5 mmol/L (3.5-5.1) 01/23/18 09:29 Chloride 101 mmol/L (98-107) 01/23/18 09:29 Carbon Dioxide 25.5 mmol/L (21-32) 01/23/18 09:29 BUN 13 mg/dL (7-18) 01/23/18 09:29 Creatinine 1.04 mg/dL (0.55-1.02) H 01/23/18 09:29 Est GFR (MDRD) Af Amer > 60 (>60) 01/23/18 09:29 Est GFR (MDRD) Non-Af > 60 (>60) 01/23/18 09:29 Glucose 278 mg/dL (65-99) H 01/23/18 09:29 Calcium 8.6 mg/dL (8.5-10.1) 01/23/18 09:29 Corrected Calcium TNP 01/23/18 09:29 Total Bilirubin 0.30 mg/dL (0.2-1.0) 01/23/18 09:29 AST 16 Units/L (15-37) 01/23/18 09:29 ALT 23 Units/L (12-78) 01/23/18 09:29 Alkaline Phosphatase 110 Units/L (46-116) 01/23/18 09:29 Total Protein 7.5 g/dL (6.4-8.2) 01/23/18 09:29 Albumin 3.5 g/dL (3.4-5.0) 01/23/18 09:29 Globulin 4.0 g/dL (2.5-4.5) 01/23/18 09:29 Albumin/Globulin Ratio 0.9 Ratio (1.1-2.1) L 01/23/18 09:29 Specimen Type Random urine 01/23/18 09:13 Urine Color Yellow (YELLOW) 01/23/18 09:13 Urine Appearance Clear (CLEAR) 01/23/18 09:13 Urine pH 7.0 (5.0 - 8.0) 01/23/18 09:13 Ur Specific [place] 1.010 (1.000-1.030) 01/23/18 09:13 Urine Protein Negative (NEGATIVE) 01/23/18 09:13 Urine Glucose (UA) 4+ (NEGATIVE) 01/23/18 09:13 Urine Ketones 2+ (NEGATIVE) 01/23/18 09:13 Urine Occult Blood Negative (NEGATIVE) 01/23/18 09:13 Urine Nitrite Negative (NEGATIVE) 01/23/18 09:13 Urine Bilirubin Negative (NEGATIVE) 01/23/18 09:13 Urine Urobilinogen Normal (NORMAL) 01/23/18 09:13 Ur Leukocyte Esterase Negative (NEGATIVE) 01/23/18 09:13 Acetone, Semi-Quant Negative (NEGATIVE) 01/23/18 09:25 - XRAY XRAY Interpreted by: Radiologist XRAY Findings: REPORT DISCUSS WITH PATIENT. - Diagnosis Discharge Problem: SOB (shortness of breath) Headache Qualifiers: Headache type: unspecified Headache chronicity pattern: acute headache Intractability: not intractable Qualified Code(s): R51 - Headache - Discharge Plan Disposition: 01 HOME, SELF-CARE Condition: Stable - Follow ups/Referrals Follow ups/Referrals: DIANA CADENA [Primary Care Provider] - 3 days - Instructions Instructions: Shortness of Breath, Adult, [id number], General Headache Without Cause, [id number] Additional Instructions: RETURN TO ED IF WORSE.
[2018-01-23 09:33] LABS: ABG ALLEN TEST POS; ABG BASE EXCESS 1.2 mmol/L (-2.0-2.0)
[2018-01-23 09:37] LABS: BASOPHILS # (AUTO) 0.1 X10^3/uL (0.0-0.1); BASOPHILS % (AUTO) 0.7 % (0.2-1.0); EOSINOPHILS # (AUTO) 0.8 x10^3/uL (0.0-0.2); EOSINOPHILS % (AUTO) 6.9 % (0.9-2.9); HEMATOCRIT 39.2 % (36.0-47.0); HEMOGLOBIN 13.2 g/dL (12.0-16.0); LYMPHOCYTES # (AUTO) 2.7 X10^3/uL (1.3-2.9); LYMPHOCYTES % (AUTO) 24.4 % (21.0-51.0); MEAN CORPUSCULAR HGB CONC 33.6 g/dL (33.0-35.0); MEAN CORPUSCULAR VOLUME 86.2 fL (80.0-100.0); MEAN PLATELET VOLUME 8.2 fL (7.4-11.0); MONOCYTES # (AUTO) 0.4 x10^3/uL (0.3-0.8); NEUTROPHILS # (AUTO) 7.1 x10^3/uL (2.2-4.8); PLATELET COUNT 341 X10^3/uL (150.0-450.0); RED BLOOD COUNT 4.54 X10^6/uL (3.5-5.4); WHITE BLOOD COUNT 11.1 X10^3/uL (3.6-10.0)
[2018-01-23 09:42] LABS: BILIRUBIN,URINE NEGATIVE (NEGATIVE); BLOOD/HEMOGLOBIN,URINE NEGATIVE (NEGATIVE); GLUCOSE, URINE 4+ (NEGATIVE); KETONES,URINE 2+ (NEGATIVE); LEUKOCYTE ESTERASE ,URINE NEGATIVE (NEGATIVE); NITRITES,URINE NEGATIVE (NEGATIVE); PROTEIN,URINE NEGATIVE (NEGATIVE); UROBILINOGEN,URINE NORMAL (NORMAL)
[2018-01-23 09:50] LABS: ALANINE AMINOTRANSFERASE 23 Units/L (12-78); ALBUMIN 3.5 g/dL (3.4-5.0); ALKALINE PHOSPHATASE 110 Units/L (46-116); ASPARTATE AMINO TRANSFERASE 16 Units/L (15-37); BLOOD UREA NITROGEN 13 mg/dL (7-18); CALCIUM 8.6 mg/dL (8.5-10.1); CARBON DIOXIDE 25.5 mmol/L (21-32); CHLORIDE 101 mmol/L (98-107); COR NA(FOR HYPERGLY) 142 mmol/L (136-145); CREATININE 1.04 mg/dL (0.55-1.02); SODIUM 138 mmol/L (136-145); TOTAL PROTEIN 7.5 g/dL (6.4-8.2); eGFR BLACK RACES > 60 (>60); eGFR NON BLACK RACES > 60 (>60)
[2018-01-23 09:57] LABS: APPEARANCE,URINE CLEAR (CLEAR); COLOR,URINE YELLOW (YELLOW)
--- NOTE | 2018-01-23 10:27 | CT ---
Examination: CT of the head. Clinical history: Headache and shortness of breath. Technique: Multiple axial images were obtained from the skull base to the vertex. No intravenous cont rast was administered. Dose reduction techniques including automated exposure control (AEC) and adjus tment of mA and kV were utilized. Comparison: None available. Findings: There is no intra-, or extra-axial hemorrhage, acute infarct or mass lesion noted. The ventricles are normal in size and symmetric about the midline, with no midline shift or mass effe ct noted. The posterior fossa, brain stem and orbital regions are within normal limits. No bony or soft tissue abnormality is noted. Impression: 1. No acute infarct or hemorrhage. Reported By:
--- NOTE | 2018-01-23 10:28 | RAD ---
HISTORY: Shortness of breath. Bronchitis. Study: PA and lateral chest Comparison: 01/19/2018 Findings: The lungs are clear. The heart size is normal. No acute bony abnormalities are identified. Minimal thoracic spondylosis is noted. IMPRESSION: 1. No radiographic evidence of acute cardiopulmonary disease or significant change is noted when com pared to the prior examination. Reported By:
== END 2018-01-23 11:55 | disposition home or self-care (01) ==
LOC: ER 08:42
DX: R06.02 Shortness of breath (principal); R51 Headache
CPT/HCPCS: 36415; 36600; 70450; 71046; 80053; 81003; 82009; 82803; 85025; 85378; 99282; 99283

== ENCOUNTER 2018-01-31 20:43 | Inpatient (IN) | payer SELFPAY ==
[2018-01-31] MEDS ORDERED: NS 1000 ML 1,000 ML ONE (21:05)
[2018-01-31] MEDS ORDERED: ZOFRAN INJ 4 MG VIAL IVP ONE (21:10)
[2018-01-31] MEDS: NS 1000 ML 1,000 ML IV SCH (21:10)
[2018-01-31] MEDS ORDERED: ZOFRAN INJ 4 MG VIAL ONE (21:11)
--- NOTE | 2018-01-31 21:11 | DR.GENAD ---
HPI - PCP Primary Care Physician: DIANA CADENA - Complaint/Symptoms Chief Complaint Doctors Comments: Patient states she has been vomiting and unable to keep anything down for the past 24 hours getting worst this evening with dizziness when she stands with cold, cough with whitish sputum production. States she has been having chest pain worst when she cough. States the pain is 8 of 10. States she is a diabetic and has had several episode DKA. State she takes Humulog 10 units qam and qhs and takes Lantus 10 units bid also. States she has not eaten since yesterday and is unable to keep liquids or food down today. States she is extremely dizzy when she stands and has been having problems walking due to the dizziness. Chief Complaint:: PT HAS BEEN VOMITING; FEELS LIKE SHE IS RUNNING A FEVER BUT NO WAY TO CHECK AT HOME; BODY ACHES SINCE THIS AM Self Treatment fo Chief Complaint: NO TREATMENT AT HOME - Nurses notes reviewed Nurses Notes Review: Yes - Source History Provided: Patient - Mode of Arrival Mode of Arrival: Ambulatory - Timing Onset of Chief Complaint: 01/31/18 Came on: Gradually - Duration Duration: Constant How lon Duration: Days - Location Location: chest pain - Severity Severity: Moderate - Modifying Factors Worsens:: coughing Improves:: nothing PMH - PMH Past Medical History: Yes Past Medical History: Diabetes Past Medical History Comment: HYPOTHYROIDISM Past Surgical History: Yes Surgical History: , Hysterectomy - Family History History of Family Medical Conditions: No Family Medical History: Diabetes Mellitus, Cancer, [place], Heart Failure, Hypertension - Social History Alcohol Use: None Do you use any recreational Drugs:: No Lives With: Family Lives Where: Home - infectious screening In the last 2 months have you had wt loss of >10#?: NO Have you had fever, night sweats or hemotysis?: No Have you traveled outside the country in the last 6 months?: No Isolation: Standard ROS - Review of Systems Constitutional: No Symptoms Reported, Weakness, Loss of Appetite. negative: See HPI, Chills, Diaphoresis, Fever, Malaise, Irritable, Fatigue, Other Eyes: No Symptoms Reported ENTM: No Symptoms Reported. negative: See HPI, Ear Pain, Ear Discharge, Pulling on Ears, Hearing Loss, Nose Pain, Nose Discharge, Epistaxis, Nose Congestion, Mouth Pain, Mouth Swelling, Loose Teeth, Drooling, Throat Pain, Throat Swelling, Ear Foreign Body Respiratoy: No Symptoms Reported, Productive Cough, Short of Breath. negative: See HPI, Non-Productive Cough, Moist Cough, Dry Cough, Hacking Cough, Barking Cough, Brassy Cough, Orthopnea, Stridor, Wheezing, Hemoptysis, Other Cardiovascular: No Symptoms Reported, Chest Pain. negative: See HPI, Edema, Palpitations, Syncope, Cyanosis, Skin Mottling, Other Gastrointestinal/Abdominal: No Symptoms Reported, Nausea. negative: See HPI, Abdominal Pain, Constipation, Diarrhea, Vomiting, Food Intolerance, Other Genitourinary: No Symptoms Reported. negative: See HPI, Discharge, Dysuria, Frequency, Hematuria, Pain, Bleeding, Other Neurological: No Symptoms Reported Musculoskeletal: No Symptoms Reported Integumentary: No Symptoms Reported. negative: See HPI, Change in Color, Change in Hair/Nails, Dryness, Lesions, Lumps, Rash, Itching, Wound, Bruises, Juandice, Other Hematologic/Lymphatic: No Symptoms Reported Endocrine: No Symptoms Reported, Increased Thirst, Decreased Appetite Psychiatric: No Symptoms Reported. negative: See HPI, Anxiety, Depression, Hallucinations, Excessive crying, Suicidal, Other PE - Vital Signs Vitals: Temperature 98.0 F Pulse Rate 121 Respiratory Rate 24 Blood Pressure [Right Arm] 116/80 Blood Pressure 132/65 O2 Sat by Pulse Oximetry 96 - General Limitations: No Limitations General Appearance: Alert, In Distress (moderate) - Head Head Exam: Normal Inspection, Atraumatic, Normocephalic - Eyes Eye exam: Normal Appearance, PERRL, EOMI. negative: Scleral Icterus, Conjunctival Injection, Nystagmus, Miosis, Mydrasis, Periorbital Swelling, Periorbital Tenderness, Other - ENT ENT Exam: Normal Exam, Normal Oropharynx, Normal External Ear Exam, Mucous Membranes Moist, TM's Normal Bilaterally External Ear Exam: Normal External Inspection TM/Canal Exam: Bilateral Normal Nose Exam: Normal Nose Exam Mouth Exam: Normal Inspection. negative: Drooling, Trismus, Lip Swelling, Tongue Elevation, Tongue Swelling, Laceration, Other Throat Exam: Normal Inspection. negative: Tonsillar Erythema, Tonsillomegaly, Tonsillar Exudate, R Peritonsillar Mass, L Peritonsillar Mass, Muffled Voice, Other - Neck Neck Exam: Normal Inspection, Full ROM, Trachea Midline. negative: Tenderness, Meningismus, Lymphadenopathy, Thyromegaly, Other - Chest Chest Inspection: Normal Inspection, Symmetric Chest Wall Rise (increased rhonchi left lung). negative: Tenderness, Rash, Abscess, Other - Respiratory Respiratory Exam: Normal Lung Sounds Bilat Respiratory Exam: Bilateral Clear to Auscultation - Cardiovascular Cardiovascular Exam: Regular Rate, Normal Rhythm, Normal Heart Sounds. negative : Bradycardia, Tachycardia, Irregular Rhythm, Systolic Murmur, Diastolic Murmur , Rubs, Gallop, Clicks, JVD, +S1, +S2, +S3, +S4, Other - Abdominal Exam Abdominal Exam: Normal Inspection, Normal Bowel Sounds, Soft. negative: Distention, Tenderness, Guarding, Rebound, Rigidity, Dimnished Bowel Sounds, Hyperactive Bowel Sounds, Hypoactive Bowel Sounds, Organomegaly, Trauma, Incision, Ascites, Mass, Bruit, Pulsatile Mass, Hernia, Other Abdominal Tenderness: negative: RUQ, RLQ, LUQ, LLQ, Epigastrium, Suprapubic, Diffuse, Mild, Moderate, Severe, Other - Extremities Extremities Exam: Normal Inspection, Full ROM, Normal Capillary Refill. negative: Tenderness, Edema, Joint Swelling, Calf Tenderness, Other - Back Back Exam: Normal Inspection, Full ROM. negative: Tenderness, (R) CVA Tenderness, (L) CVA Tenderness, Muscle Spasm, Paraspinal Tenderness, Vertebral Tenderness, Rashes, (R) Sciatic Notch Tenderness, (L) Sciatic Notch Tendern, (R ) Straight Leg Raise, (L) Straight Leg Raise, Other - Neurologic Neurological Exam: Alert, Oriented X3, CN II-XII Intact, Reflexes Normal. negative: Normal Gait (gait not tested) - Psychiatric Psychiatric Exam: Normal Affect, Normal Mood - Skin Skin Exam: Warm, Dry, Intact, Normal Color Course - Reevaluation 1st: Improved - Consultation Called: 23:50 Call Returned: 00:15 (Dr. Richardson to admit) - Education/Counseling Education/Counseling: Patient Educated On: Treatment, Diagnosis ROR - Labs Reviewed Laboratory Results Reviewed?: Yes (All labs and x-ray results reviewed and discussed with patient) Result Diagrams: 01/31/18 21:14 01/31/18 21:14 Laboratory: WBC 16.0 X10^3/uL (3.6-10.0) H 01/31/18 21:14 RBC 4.71 X10^6/uL (3.5-5.4) 01/31/18 21:14 Hgb 13.6 g/dL (12.0-16.0) 01/31/18 21:14 Hct 42.8 % (36.0-47.0) 01/31/18 21:14 MCV 90.8 fL (80.0-100.0) 01/31/18 21:14 MCH 28.9 pg (27.0-34.0) 01/31/18 21:14 MCHC 31.8 g/dL (33.0-35.0) L 01/31/18 21:14 RDW 15.1 % (11.6-16.5) 01/31/18 21:14 Plt Count 323 X10^3/uL (150.0-450.0) 01/31/18 21:14 MPV 8.7 fL (7.4-11.0) 01/31/18 21:14 Neut % (Auto) 87.8 % (42.0-75.0) H 01/31/18 21:14 Lymph % (Auto) 5.7 % (21.0-51.0) L 01/31/18 21:14 [place] % (Auto) 5.3 % (0.0-13.0) 01/31/18 21:14 Eos % (Auto) 0.6 % (0.9-2.9) L 01/31/18 21:14 Baso % (Auto) 0.6 % (0.2-1.0) 01/31/18 21:14 Neut # (Auto) 14.0 x10^3/uL (2.2-4.8) H 01/31/18 21:14 Lymph # (Auto) 0.9 X10^3/uL (1.3-2.9) L 01/31/18 21:14 [place] # (Auto) 0.8 x10^3/uL (0.3-0.8) 01/31/18 21:14 Eos # (Auto) 0.1 x10^3/uL (0.0-0.2) 01/31/18 21:14 Baso # (Auto) 0.1 X10^3/uL (0.0-0.1) 01/31/18 21:14 Absolute Nucleated RBC 0.0 /100WBC 01/31/18 21:14 INR Target Range - 01/31/18 21:14 INR 0.99 (0.8-1.3) 01/31/18 21:14 APTT 24.0 SECONDS (22.9-36.5) 01/31/18 21:14 PTT Comment - 01/31/18 21:14 D-Dimer 1010 ng/mL (0-400) H* 01/31/18 21:14 Sample Site Rr 01/31/18 23:53 ABG pH 7.220 (7.35-7.45) L 01/31/18 23:53 ABG pCO2 25.0 mmHg (35.0-45.0) L 01/31/18 23:53 ABG pO2 87.0 mmHg (80.0-100.0) 01/31/18 23:53 ABG HCO3 10.2 mmol/L (22-26) L* 01/31/18 23:53 ABG O2 Saturation 94.0 % (90-100) 01/31/18 23:53 ABG Base Excess -15.8 mmol/L (-2.0-2.0) L 01/31/18 23:53 Yared Test Pos 01/31/18 23:53 A-a Gradient 31.0 mmHg 01/31/18 23:53 FiO2 21 01/31/18 23:53 Blood Gas Comments Polly well ae 01/31/18 23:53 Sodium 135 mmol/L (136-145) L 01/31/18 21:14 Corrected Sodium 149 mmol/L (136-145) H 01/31/18 21:14 Potassium 5.1 mmol/L (3.5-5.1) 01/31/18 21:14 Chloride 98 mmol/L (98-107) 01/31/18 21:14 Carbon Dioxide 12.7 mmol/L (21-32) L* 01/31/18 21:14 BUN 20 mg/dL (7-18) H 01/31/18 21:14 Creatinine 1.20 mg/dL (0.55-1.02) H 01/31/18 21:14 Est GFR (MDRD) Af Amer > 60 (>60) 01/31/18 21:14 Est GFR (MDRD) Non-Af 52 (>60) L 01/31/18 21:14 Glucose 679 mg/dL (65-99) H* 01/31/18 21:14 POC Glucose (mg/dL) 483 mg/dL (65-99) H* 01/31/18 23:33 Calcium 8.9 mg/dL (8.5-10.1) 01/31/18 21:14 Corrected Calcium TNP 01/31/18 21:14 Magnesium 1.8 mg/dL (1.7-2.9) 01/31/18 21:14 Total Bilirubin 0.90 mg/dL (0.2-1.0) 01/31/18 21:14 AST 21 Units/L (15-37) 01/31/18 21:14 ALT 23 Units/L (12-78) 01/31/18 21:14 Alkaline Phosphatase 121 Units/L (46-116) H 01/31/18 21:14 Creatine Kinase 33 Units/L (26-192) 01/31/18 21:14 CK-MB (CK-2) < 1.0 ng/mL (0-4.0) 01/31/18 21:14 CK/CKMB % Calc 3.0 % (<4) 01/31/18 21:14 Troponin I < 0.02 ng/mL (0-1.5) 01/31/18 21:14 Total Protein 7.6 g/dL (6.4-8.2) 01/31/18 21:14 Albumin 3.5 g/dL (3.4-5.0) 01/31/18 21:14 Globulin 4.1 g/dL (2.5-4.5) 01/31/18 21:14 Albumin/Globulin Ratio 0.9 Ratio (1.1-2.1) L 01/31/18 21:14 - XRAY XRAY Interpreted by: Radiologist (CXR: No acute cardiopulmonary abnormality) - EKG Rate: 109 Rhythm: NSR, ST Block: None Hypertrophy: LAE ST: Nonsp - Diagnosis Discharge Problem: Gastroenteritis, uncontrolled DM, Bronchitis, Metabolic acidosis, Sinus tachycardia Diabetic keto-acidosis Qualifiers: Diabetes mellitus type: type 1 - Discharge Plan Disposition: ADMITTED INPATIENT Condition: Stable - Follow ups/Referrals Follow ups/Referrals: NFD,None [Primary Care Provider] - 3 days - Instructions
[2018-01-31 21:24] LABS: BASOPHILS # (AUTO) 0.1 X10^3/uL (0.0-0.1); BASOPHILS % (AUTO) 0.6 % (0.2-1.0); EOSINOPHILS # (AUTO) 0.1 x10^3/uL (0.0-0.2); EOSINOPHILS % (AUTO) 0.6 % (0.9-2.9); HEMATOCRIT 42.8 % (36.0-47.0); HEMOGLOBIN 13.6 g/dL (12.0-16.0); LYMPHOCYTES # (AUTO) 0.9 X10^3/uL (1.3-2.9); LYMPHOCYTES % (AUTO) 5.7 % (21.0-51.0); MEAN CORPUSCULAR HEMOGLOBIN 28.9 pg (27.0-34.0); MEAN CORPUSCULAR HGB CONC 31.8 g/dL (33.0-35.0); MEAN CORPUSCULAR VOLUME 90.8 fL (80.0-100.0); MEAN PLATELET VOLUME 8.7 fL (7.4-11.0); MONOCYTES # (AUTO) 0.8 x10^3/uL (0.3-0.8); MONOCYTES % (AUTO) 5.3 % (0.0-13.0); NEUTROPHILS % (AUTO) 87.8 % (42.0-75.0); PLATELET COUNT 323 X10^3/uL (150.0-450.0); RED BLOOD COUNT 4.71 X10^6/uL (3.5-5.4); RED CELL DISTRIBUTION WIDTH 15.1 % (11.6-16.5)
[2018-01-31 21:44] LABS: ALANINE AMINOTRANSFERASE 23 Units/L (12-78); ALBUMIN 3.5 g/dL (3.4-5.0); ALKALINE PHOSPHATASE 121 Units/L (46-116); ASPARTATE AMINO TRANSFERASE 21 Units/L (15-37); BLOOD UREA NITROGEN 20 mg/dL (7-18); CALCIUM 8.9 mg/dL (8.5-10.1); CHLORIDE 98 mmol/L (98-107); CREATINE KINASE 33 Units/L (26-192); CREATINE KINASE MB < 1.0 ng/mL (0-4.0); MAGNESIUM 1.8 mg/dL (1.7-2.9); SODIUM 135 mmol/L (136-145); TOTAL PROTEIN 7.6 g/dL (6.4-8.2); TROPONIN I < 0.02 ng/mL (0-1.5); eGFR BLACK RACES > 60 (>60); eGFR NON BLACK RACES 52 (>60)
--- NOTE | 2018-01-31 21:58 | RAD ---
HISTORY: Pain, fever, body aches Study: Single view chest Comparison: 01/23/2018 Findings: Single portable upright view is submitted. No infiltrate, effusion or pneumothorax identified. The ca rdiac and mediastinal contours are within normal limits. The soft tissues are unremarkable. IMPRESSION: 1. No acute cardiopulmonary abnormality. Reported By:
[2018-01-31 22:07] LABS: CARBON DIOXIDE 12.7 mmol/L (21-32); COR NA(FOR HYPERGLY) 149 mmol/L (136-145)
[2018-01-31] MEDS ORDERED: NS 1000 ML 1,000 ML IV ONE (22:13)
[2018-01-31] MEDS ORDERED: HumuLIN R IV PRN (22:14)
[2018-01-31] MEDS ORDERED: NS 100 ML IV 100 ML IV ONE ×2 (22:23→23:49)
--- NOTE | 2018-01-31 23:13 | CT ---
HISTORY: Chest pain Study: CTA chest Comparison: None Technique: Multiple axial images of the chest were obtained after the administration of IV contrast. 3D reconstructions were performed utilizing radial maximum intensity projection imaging. Dose reduct ion techniques including Automated Exposure Control (AEC) and adjustment of mA and kV were utilized. Findings: Contrast opacification of the pulmonary arteries is adequate to the level of the segmental branches. No evidence of acute pulmonary emboli. Normal appearance of the heart and pericardium. The aorta appe ars normal in course and caliber. The lungs are clear without effusion, consolidation, or pneumothora x. Airways are patent. There is a small hiatal hernia noted. The soft tissues and osseous structures appear intact. The visualized portions of the upper abdomen a re grossly unremarkable. The gallbladder is removed. IMPRESSION: 1.No acute pulmonary emboli. 2. Small hiatal hernia. Reported By:
[2018-01-31] MEDS ORDERED: LEVSIN/MAALOX/LIDOC VISC PO ONE (23:46)
[2018-01-31] MEDS ORDERED: LEVSIN/MAALOX/LIDOC VISC ONE (23:49)
[2018-01-31 23:59] LABS: ABG ALLEN TEST POS; ABG BASE EXCESS -15.8 mmol/L (-2.0-2.0); ABG HCO3 10.2 mmol/L (22-26); FRACTIONATED INSPIRED OXYGEN 21
[2018-02-01] MEDS: NS 1000 ML 1,000 ML IV SCH (00:15)
[2018-02-01] MEDS ORDERED: SODIUM BICARBONATE 8.4% INJ ADULT IVP ONE (01:08)
[2018-02-01] MEDS ORDERED: ROCEPHIN 1 GM IV PREMIX 1 GM/50 ML IV.SOLN. IV ONE (01:09)
[2018-02-01] MEDS ORDERED: SODIUM BICARBONATE 8.4% INJ ADULT ONE (01:14)
[2018-02-01] MEDS ORDERED: ROCEPHIN VIAL 1 GM ONE (01:14)
[2018-02-01] MEDS ORDERED: NS 100 ML IV + SPIKE MINIBAG* 100 ML IV ONE (01:14)
[2018-02-01] MEDS ORDERED: ZOFRAN INJ 4 MG VIAL IVP PRN (01:16)
[2018-02-01 01:32] LABS: BILIRUBIN,URINE NEGATIVE (NEGATIVE); BLOOD/HEMOGLOBIN,URINE NEGATIVE (NEGATIVE); GLUCOSE, URINE 4+ (NEGATIVE); KETONES,URINE 4+ (NEGATIVE); LEUKOCYTE ESTERASE ,URINE NEGATIVE (NEGATIVE); NITRITES,URINE NEGATIVE (NEGATIVE); PROTEIN,URINE NEGATIVE (NEGATIVE); UROBILINOGEN,URINE NORMAL (NORMAL)
[2018-02-01 01:34] LABS: APPEARANCE,URINE CLEAR (CLEAR); COLOR,URINE YELLOW (YELLOW)
[2018-02-01] MEDS ORDERED: LOVENOX INJ 40 MG SYR SC SCH (02:00)
[2018-02-01] MEDS ORDERED: NS 1000 ML 1,000 ML IV SCH (02:00)
[2018-02-01 02:27] LABS: SERUM ACETONE SMALL (NEGATIVE)
[2018-02-01 02:29] LABS: BLOOD UREA NITROGEN 18 mg/dL (7-18); CALCIUM 8.5 mg/dL (8.5-10.1); CARBON DIOXIDE 16.6 mmol/L (21-32); CHLORIDE 108 mmol/L (98-107); COR NA(FOR HYPERGLY) 149 mmol/L (136-145); SODIUM 143 mmol/L (136-145); eGFR BLACK RACES > 60 (>60); eGFR NON BLACK RACES 52 (>60)
[2018-02-01 02:46] LABS: CKMB % 2.9 % (<4); CREATINE KINASE 35 Units/L (26-192); CREATINE KINASE MB < 1.0 ng/mL (0-4.0); TROPONIN I < 0.02 ng/mL (0-1.5)
[2018-02-01 03:08] VITALS: BMI 31.0
[2018-02-01] MEDS: D5 1/2 NS 1000 ML 1,000 ML IV SCH ×2 (04:20→11:03)
[2018-02-01 05:23] LABS: ABG BASE EXCESS -2.4 mmol/L (-2.0-2.0); ABG HCO3 21.6 mmol/L (22-26)
[2018-02-01 05:24] LABS: ABG ALLEN TEST POS
[2018-02-01 06:24] LABS: ALANINE AMINOTRANSFERASE 20 Units/L (12-78); ALBUMIN 2.9 g/dL (3.4-5.0); ALKALINE PHOSPHATASE 95 Units/L (46-116); ASPARTATE AMINO TRANSFERASE 16 Units/L (15-37); BLOOD UREA NITROGEN 17 mg/dL (7-18); CALCIUM 8.2 mg/dL (8.5-10.1); CARBON DIOXIDE 22.6 mmol/L (21-32); CHLORIDE 109 mmol/L (98-107); COR CA(FOR HYPOALB) 9.1 mg/dL (8.5-10.1); COR NA(FOR HYPERGLY) 145 mmol/L (136-145); CREATININE 1.02 mg/dL (0.55-1.02); SODIUM 143 mmol/L (136-145); TOTAL PROTEIN 6.8 g/dL (6.4-8.2); eGFR BLACK RACES > 60 (>60); eGFR NON BLACK RACES > 60 (>60)
[2018-02-01 06:25] LABS: BASOPHILS % (AUTO) 0.4 % (0.2-1.0); HEMATOCRIT 36.5 % (36.0-47.0); HEMOGLOBIN 12.3 g/dL (12.0-16.0); LYMPHOCYTES # (AUTO) 0.9 X10^3/uL (1.3-2.9); LYMPHOCYTES % (AUTO) 9.2 % (21.0-51.0); MEAN CORPUSCULAR HEMOGLOBIN 29.2 pg (27.0-34.0); MEAN CORPUSCULAR HGB CONC 33.7 g/dL (33.0-35.0); MEAN CORPUSCULAR VOLUME 86.9 fL (80.0-100.0); MEAN PLATELET VOLUME 8.8 fL (7.4-11.0); MONOCYTES # (AUTO) 0.3 x10^3/uL (0.3-0.8); MONOCYTES % (AUTO) 2.8 % (0.0-13.0); NEUTROPHILS # (AUTO) 8.9 x10^3/uL (2.2-4.8); NEUTROPHILS % (AUTO) 87.6 % (42.0-75.0); PLATELET COUNT 269 X10^3/uL (150.0-450.0); RED CELL DISTRIBUTION WIDTH 14.3 % (11.6-16.5); WHITE BLOOD COUNT 10.2 X10^3/uL (3.6-10.0)
[2018-02-01 09:49] LABS: BLOOD UREA NITROGEN 16 mg/dL (7-18); CALCIUM 7.7 mg/dL (8.5-10.1); CARBON DIOXIDE 23.5 mmol/L (21-32); CHLORIDE 108 mmol/L (98-107); COR NA(FOR HYPERGLY) 144 mmol/L (136-145); CREATININE 0.98 mg/dL (0.55-1.02); SODIUM 141 mmol/L (136-145); eGFR BLACK RACES > 60 (>60); eGFR NON BLACK RACES > 60 (>60)
[2018-02-01 13:26] LABS: BLOOD UREA NITROGEN 16 mg/dL (7-18); CALCIUM 7.8 mg/dL (8.5-10.1); CARBON DIOXIDE 22.8 mmol/L (21-32); CHLORIDE 107 mmol/L (98-107); COR NA(FOR HYPERGLY) 142 mmol/L (136-145); CREATININE 0.94 mg/dL (0.55-1.02); SODIUM 139 mmol/L (136-145); eGFR BLACK RACES > 60 (>60); eGFR NON BLACK RACES > 60 (>60)
[2018-02-01 15:01] VITALS: BP 116/56
[2018-02-01] MEDS ORDERED: SNACK - Diabetic Appropriate PO SCH ×2 (20:00)
[2018-02-02] MEDS ORDERED: LOVENOX INJ 40 MG SYR SC SCH (09:00)
--- NOTE | 2018-02-08 20:47 | DR.CARTERS ---
Short Stay Summary - Short Stay Summary for: Short Stay Summary for Date of:: 02/01/18 - Admission Date Date of Admission: 02/01/18 - Discharge Date Discharge Date: 02/01/18 - Admission Diagnoses (1) Diabetic keto-acidosis Status: Acute (2) Gastroenteritis Status: Acute (3) Metabolic acidosis Status: Acute (4) Bronchitis Status: Acute - Hospital Course Hospital Course: Patient presented to the ED with complaints she had been vomiting and unable to keep anything down for the past 24 hours getting worst this evening with dizziness when she stands with cold, cough with whitish sputum production. States she has been having chest pain worst when she cough. States the pain is 8 of 10. States she is a diabetic and has had several episode DKA. State she takes Humulog 10 units qam and qhs and takes Lantus 10 units bid also. States she has not eaten since yesterday and is unable to keep liquids or food down today. States she is extremely dizzy when she stands and has been having problems walking due to the dizziness. Patient was noted to have small acetone and ABG revealed metabolic acidosis. Patient was admitted and given IV hydration wityh Blood glucose monitoring. The patient unfortunately left against medical advice and signed out AMA. - Discharge Medications Discharge Medications: Insulin Glargine (Lantus) [LANTUS INSULIN 10 ML VIAL *] 10 units SUBCUT HS 02/01 [History] - Discharge Plan Disposition: 07 AGAINST MEDICAL ADVICE Condition: Stable - Follow up/Referrals Follow up/Referrals: NFD,None [STAFF PHYSICIAN] - 3 days - Instructions
== END 2018-02-01 15:55 | disposition left against medical advice (07) | DRG 638 ==
LOC: ER 20:43 → ICU 02-01 01:30
PROVIDERS: ADMIT Internal Medicine; ATTEND Obstetrics & Gynecology Obstetrics
DX: E10.10 Type 1 diabetes mellitus with ketoacidosis without coma (principal); K52.89 Other specified noninfective gastroenteritis and colitis; E87.2 Acidosis; J20.8 Acute bronchitis due to other specified organisms; R11.10 Vomiting, unspecified; E03.8 Other specified hypothyroidism; R00.0 Tachycardia, unspecified
CPT/HCPCS: 36415; 36600; 71045; 71275; 80048; 80053; 81003; 82009; 82550; 82553; 82803; 83735; 84484; 85025; 85378; 85610; 85730; 87040; 93005; 93010; 96365; 96367; 96374; 96375; 99284; 99285; A4222; J0696; J1650; J1815; J2405; J3490; J7042

== ENCOUNTER 2019-06-11 19:30 | Observation (INO) ==
--- NOTE | 2019-06-11 20:02 | DR.CP ---
HPI Time Seen Time Seen by Provider: 06/11/19 19:50 PCP Primary Care Physician: CEE HPI Comment HPI Comment: PATIENT IS 43YR OLD FEMALE WITH PALPITATION AND SOB FOR FEW DAYS AND RIGHT SIDED CHEST PAIN TODAY. PAIN IS SHARP AND RADIATES TO THE BACK OF RI GHT CHEST AND IS 4/10. NO FEVER OR URI SYMPTOMS. DENIES TRAUMA. Complaint Chief Complaint Doctor Comments: RAPID HEART RATE, SOB FOR FEW DAYS RIGHT SIDED CHEST PAIN TODAY. Chief Complaint:: " FOR THE PAST COUPLE OF DAYS WHEN I MOVE AROUND MY HEART BEATS FASTER AND I FEEL LIKE I CANT BREATH THEN TODAY AFTER I ATE SUPPER I GOT CHEST PAIN ON THE RIGHT SIDE WITH THE SAME SYMPTOMS." Self Treatment fo Chief Complaint: ASPIRIN 81MG @ 1900 Reviewed Nurses Notes Review: Yes Source History Provided: Patient Mode of Arrival Mode of Arrival: Ambulatory Timing Onset of Chief Complaint: 06/08/19 Came on: Suddenly Pain: Present Now Duration Duration: Constant Duration: Days Location Location of Chest Pain: Right and Chest Chest Pain Radiation Location: None and Back Context Onset: At rest and With light exertion Cardiac Risk Factors: Smoker, Family History and HTN PE Risk Factors: None History of: None Prehospital Care: ASA Quality Quality: Sharp Severity Severity: Moderate Modifying Factors Worsens: Movement Impoves: Rest Associated Signs and Symptoms Associated Signs and Symptoms: Shortness of Breath and Palpitations Other History Other History: HYPERTENSION. PMH PMH Past Medical History: Yes Past Medical History: Depression, Diabetes and Hypothyroidism Past Surgical History: Yes Surgical History: , Cholecystectomy, Hysterectomy and Tonsillectomy Family History History of Family Medical Conditions: Yes Family Medical History: Diabetes Mellitus, Cancer and Heart Failure Social History Type of Tobacco Use: Cigarettes Alcohol Use: None Do you use any recreational Drugs:: No infectious screening Have you traveled outside the country in the last 6 months?: No ROS Review of Systems Constitutional: See HPI, Weakness and Fatigue; negative Fever Eyes: No Symptoms Reported and See HPI ENTM: No Symptoms Reported and See HPI Respiratoy: No Symptoms Reported, See HPI and Short of Breath; negative Moist Cough and Wheezing Cardiovascular: See HPI, Chest Pain and Palpitations; negative Syncope Gastrointestinal/Abdominal: No Symptoms Reported and See HPI; negative Abdominal Pain, Constipation, Diarrhea, Nausea and Vomiting Genitourinary: No Symptoms Reported; negative Dysuria, Frequency and Hematuria Neurological: See HPI and Weakness; negative Headache and Dizziness Musculoskeletal: No Symptoms Reported and See HPI; negative Back Pain Integumentary: No Symptoms Reported and See HPI; negative Change in Color and Change in Hair/Nails Hematologic/Lymphatic: No Symptoms Reported and See HPI; negative Easy Bleeding, Easy Bruising and Swollen Glands Endocrine: No Symptoms Reported and See HPI; negative Increased Thirst, Incr eased Urine and Decreased Appetite Psychiatric: No Symptoms Reported and See HPI All Other Systems: Reviewed and Negative PE Vitals Vitals: Temperature 98.2 F Pulse Rate [Left Brachial] 70 Pulse Rate 79 Respiratory Rate 18 Blood Pressure [Left Arm] 129/70 Blood Pressure [Right Arm] 117/62 Blood Pressure 130/62 O2 Sat by Pulse Oximetry 97 General Limitations: No Limitations General Appearance: Alert and In No Apparent Distress Head Head Exam: Normal Inspection and Atraumatic Eyes Eye exam: Normal Appearance, PERRL and EOMI; negative Scleral Icterus and Conjunctival Injection ENT ENT Exam: Normal Exam, Normal Oropharynx, Normal External Ear Exam and TM's Normal Bilaterally Chest Chest Inspection: Normal Inspection and Symmetric Chest Wall Rise; negative Tenderness Respiratory Respiratory Exam: Normal Lung Sounds Bilat; negative Accessory Muscle Use, Chest Wall Tenderness and Respiratory Distress Respiratory Exam: Bilateral: Clear to Auscultation Cardiovascular Cardiovascular Exam: Regular Rate, Normal Rhythm and Normal Heart Sounds; negative Systolic Murmur and Diastolic Murmur Pulse: Normal Edema: Normal Abdominal Exam Abdominal Exam: Normal Inspection, Normal Bowel Sounds and Soft; negative T enderness Extremities Extremities Exam: Normal Inspection Back Back Exam: Normal Inspection Neurologic Neurological Exam: Alert, Oriented X3 and CN II-XII Intact; negative Motor Sensory Deficit Psychiatric Psychiatric Exam: Normal Affect and Normal Mood Skin Skin Exam: Warm, Dry, Intact and Normal Color MDM Differential Diagnosis Differential Diagnosis: Angina, Chest Wall Pain, Cholelithasis, CHF, Costochondritis, Esophageal Reflux/Spasm, Gastritis, Myocardial Infarction, Pericarditis, Pleuritis, Pancreatitis, Pneumonia and Pulmonary Embolus COURSE Treatment Treatment: SEE ORDERS. Consultation Consultation Comments: DR CROWE WILL ADMIT PATIENT FOR OBSERVATION. Education/Counseling Education/Counseling: Patient Educated On: Diagnosis and Needs for Follow Up ROR Labs Reviewed Laboratory Results Reviewed?: Yes Result Diagrams: 06/12/19 04:03 06/12/19 04:03 Laboratory: WBC 9.3 X10^3/uL (3.6-10.0) 06/12/19 04:03 RBC 4.23 X10^6/uL (3.5-5.4) 06/12/19 04:03 Hgb 12.6 g/dL (12.0-16.0) 06/12/19 04:03 Hct 37.2 % (36.0-47.0) 06/12/19 04:03 MCV 87.8 fL (80.0-100.0) 06/12/19 04:03 MCH 29.8 pg (27.0-34.0) 06/12/19 04:03 MCHC 33.9 g/dL (33.0-35.0) 06/12/19 04:03 RDW 14.5 % (11.6-16.5) 06/12/19 04:03 Plt Count 276 X10^3/uL (150.0-450.0) 06/12/19 04:03 MPV 8.3 fL (7.4-11.0) 06/12/19 04:03 Neut % (Auto) 51.0 % (42.0-75.0) 06/12/19 04:03 Lymph % (Auto) 37.8 % (21.0-51.0) 06/12/19 04:03 [place] % (Auto) 6.1 % (0.0-13.0) 06/12/19 04:03 Eos % (Auto) 4.6 % (0.9-2.9) H 06/12/19 04:03 Baso % (Auto) 0.5 % (0.2-1.0) 06/12/19 04:03 Neut # (Auto) 4.8 x10^3/uL (2.2-4.8) 06/12/19 04:03 Lymph # (Auto) 3.5 X10^3/uL (1.3-2.9) H 06/12/19 04:03 [place] # (Auto) 0.6 x10^3/uL (0.3-0.8) 06/12/19 04:03 Eos # (Auto) 0.4 x10^3/uL (0.0-0.2) H 06/12/19 04:03 Baso # (Auto) 0.0 X10^3/uL (0.0-0.1) 06/12/19 04:03 Absolute Nucleated RBC 0.0 /100WBC 06/12/19 04:03 PT 12.0 SECONDS (11.8-14.3) 06/11/19 20:01 INR Target Range - 06/11/19 20:01 INR 0.92 (0.8-1.3) 06/11/19 20:01 APTT 25.0 SECONDS (22.9-36.5) 06/11/19 20:01 PTT Comment - 06/11/19 20:01 Sodium 139 mmol/L (136-145) 06/12/19 04:03 Corrected Sodium 142 mmol/L (136-145) 06/12/19 04:03 Potassium 3.6 mmol/L (3.5-5.1) 06/12/19 04:03 Chloride 102 mmol/L (98-107) 06/12/19 04:03 Carbon Dioxide 22.3 mmol/L (21-32) 06/12/19 04:03 BUN 12 mg/dL (7-18) 06/12/19 04:03 Creatinine 1.02 mg/dL (0.55-1.02) 06/12/19 04:03 Est GFR (MDRD) Af Amer > 60 (>60) 06/12/19 04:03 Est GFR (MDRD) Non-Af > 60 (>60) 06/12/19 04:03 Glucose 223 mg/dL (65-99) H 06/12/19 04:03 Calcium 8.5 mg/dL (8.5-10.1) 06/12/19 04:03 Corrected Calcium 9.2 mg/dL (8.5-10.1) 06/12/19 04:03 Magnesium 1.7 mg/dL (1.7-2.9) 06/12/19 04:03 Total Bilirubin 0.40 mg/dL (0.2-1.0) 06/12/19 04:03 AST 9 Units/L (15-37) L 06/12/19 04:03 ALT 8 Units/L (12-78) L 06/12/19 04:03 Alkaline Phosphatase 104 Units/L (46-116) 06/12/19 04:03 Creatine Kinase 28 Units/L (26-192) 06/12/19 11:25 CK-MB (CK-2) < 1.0 ng/mL (0-4.0) 06/12/19 11:25 CK/CKMB % Calc 3.6 % (<4) 06/12/19 11:25 Troponin I < 0.02 ng/mL (0-1.5) 06/12/19 11:25 Total Protein 7.0 g/dL (6.4-8.2) 06/12/19 04:03 Albumin 3.1 g/dL (3.4-5.0) L 06/12/19 04:03 Globulin 3.9 g/dL (2.5-4.5) 06/12/19 04:03 Albumin/Globulin Ratio 0.8 Ratio (1.1-2.1) L 06/12/19 04:03 Specimen Type Clean catch urine 06/12/19 04:19 Urine Color Pale yellow (YELLOW) 06/12/19 04:19 Urine Appearance Clear (CLEAR) 06/12/19 04:19 Urine pH 5.0 (5.0 - 8.0) 06/12/19 04:19 Ur Specific [place] 1.015 (1.000-1.030) 06/12/19 04:19 Urine Protein Negative (NEGATIVE) 06/12/19 04:19 Urine Glucose (UA) 4+ (NEGATIVE) 06/12/19 04:19 Urine Ketones 4+ (NEGATIVE) 06/12/19 04:19 Urine Occult Blood Negative (NEGATIVE) 06/12/19 04:19 Urine Nitrite Negative (NEGATIVE) 06/12/19 04:19 Urine Bilirubin Negative (NEGATIVE) 06/12/19 04:19 Urine Urobilinogen Normal (NORMAL) 06/12/19 04:19 Ur Leukocyte Esterase Negative (NEGATIVE) 06/12/19 04:19 Urine RBC None seen /HPF (NONE SEEN) 06/12/19 04:19 Urine WBC None seen /HPF (NONE SEEN) 06/12/19 04:19 Ur Squamous Epith Cells Rare /HPF (NEGATIVE) 06/12/19 04:19 Urine Bacteria Negative /HPF (NEGATIVE) 06/12/19 04:19 Urine Yeast Few /HPF (NEGATIVE) 06/12/19 04:19 Ur Culture Indicated? No/not indicated 06/12/19 04:19 Acetone, Semi-Quant Small (NEGATIVE) H 06/12/19 04:03 XRAY XRAY Interpreted by: Radiologist XRAY Findings: REPORT NOTED AND DISCUSS WITH PATIENT. EKG Rate: 88 [place]: Normal Rhythm: NSR Block: None Hypertrophy: None ST: Normal Opioid Opioid Risk Tool Total: 0 Total Score Risk Category: Low Risk Copyright: [facility] predicting aberrant behaviors Diagnosis Discharge Problem: Chest pain, rule out acute myocardial infarction Instructions Instructions: Nonspecific Chest Pain, [id number] Forms: Excuse From Work or School
[2019-06-11 20:19] LABS: BASOPHILS # (AUTO) 0.1 X10^3/uL (0.0-0.1); BASOPHILS % (AUTO) 0.9 % (0.2-1.0); EOSINOPHILS # (AUTO) 0.3 x10^3/uL (0.0-0.2); EOSINOPHILS % (AUTO) 4.2 % (0.9-2.9); HEMATOCRIT 39.6 % (36.0-47.0); HEMOGLOBIN 13.6 g/dL (12.0-16.0); LYMPHOCYTES # (AUTO) 2.4 X10^3/uL (1.3-2.9); LYMPHOCYTES % (AUTO) 29.9 % (21.0-51.0); MEAN CORPUSCULAR HEMOGLOBIN 30.6 pg (27.0-34.0); MEAN CORPUSCULAR HGB CONC 34.3 g/dL (33.0-35.0); MEAN CORPUSCULAR VOLUME 89.2 fL (80.0-100.0); MONOCYTES # (AUTO) 0.4 x10^3/uL (0.3-0.8); MONOCYTES % (AUTO) 5.5 % (0.0-13.0); NEUTROPHILS # (AUTO) 4.7 x10^3/uL (2.2-4.8); NEUTROPHILS % (AUTO) 59.5 % (42.0-75.0); PLATELET COUNT 276 X10^3/uL (150.0-450.0); RED BLOOD COUNT 4.44 X10^6/uL (3.5-5.4); RED CELL DISTRIBUTION WIDTH 14.5 % (11.6-16.5); WHITE BLOOD COUNT 7.9 X10^3/uL (3.6-10.0)
[2019-06-11 20:34] LABS: ALANINE AMINOTRANSFERASE 9 Units/L (12-78); ALBUMIN 3.4 g/dL (3.4-5.0); ALKALINE PHOSPHATASE 132 Units/L (46-116); ASPARTATE AMINO TRANSFERASE 9 Units/L (15-37); BLOOD UREA NITROGEN 13 mg/dL (7-18); CALCIUM 8.8 mg/dL (8.5-10.1); CARBON DIOXIDE 21.1 mmol/L (21-32); CHLORIDE 94 mmol/L (98-107); CKMB % 3.1 % (<4); CREATINE KINASE 32 Units/L (26-192); CREATINE KINASE MB < 1.0 ng/mL (0-4.0); MAGNESIUM 1.7 mg/dL (1.7-2.9); SODIUM 132 mmol/L (136-145); TOTAL PROTEIN 7.4 g/dL (6.4-8.2); TROPONIN I < 0.02 ng/mL (0-1.5); eGFR NON BLACK RACES 57 (>60)
--- NOTE | 2019-06-11 20:36 | RAD ---
Chest, 1 view Indication: Chest pain, shortness of breath Comparison: 01/31/2018 Findings: Cardiac silhouette is unremarkable. The lungs are grossly clear. No pleural effusion or pneumothorax. Impression: No acute chest process. Reported By:
[2019-06-11 20:39] LABS: COR NA(FOR HYPERGLY) 143 mmol/L (136-145)
[2019-06-11] MEDS ORDERED: NS 1000 ML 1,000 ML ONE (21:18)
[2019-06-11] MEDS ORDERED: NS 1000 ML 1,000 ML IV ONE (21:26)
[2019-06-12] MEDS ORDERED: NS 1000 ML 1,000 ML ONE ×2 (00:58→05:04)
[2019-06-12] MEDS: NS 1000 ML 1,000 ML IV SCH ×4 (01:07→09:35)
[2019-06-12] MEDS ORDERED: HumaLOG SC PRN (01:15)
[2019-06-12] MEDS ORDERED: HumuLIN R ONE ×2 (01:15→02:13)
[2019-06-12] MEDS: HumuLIN R SUBCUT ONE (01:18)
[2019-06-12] MEDS ORDERED: HumuLIN R SUBCUT PRN (02:06)
[2019-06-12 04:46] LABS: BILIRUBIN,URINE NEGATIVE (NEGATIVE); BLOOD/HEMOGLOBIN,URINE NEGATIVE (NEGATIVE); GLUCOSE, URINE 4+ (NEGATIVE); KETONES,URINE 4+ (NEGATIVE); LEUKOCYTE ESTERASE ,URINE NEGATIVE (NEGATIVE); NITRITES,URINE NEGATIVE (NEGATIVE); PROTEIN,URINE NEGATIVE (NEGATIVE); UROBILINOGEN,URINE NORMAL (NORMAL)
[2019-06-12 05:03] LABS: APPEARANCE,URINE CLEAR (CLEAR); BACTERIA,URINE NEGATIVE /HPF (NEGATIVE); COLOR,URINE PALE YELLOW (YELLOW); RBC,URINE NONE SEEN /HPF (NONE SEEN); SQUAMOUS EPITHELIAL CELL,UR RARE /HPF (NEGATIVE); YEAST,URINE FEW /HPF (NEGATIVE)
[2019-06-12 05:10] LABS: BASOPHILS % (AUTO) 0.5 % (0.2-1.0); EOSINOPHILS # (AUTO) 0.4 x10^3/uL (0.0-0.2); EOSINOPHILS % (AUTO) 4.6 % (0.9-2.9); HEMATOCRIT 37.2 % (36.0-47.0); HEMOGLOBIN 12.6 g/dL (12.0-16.0); LYMPHOCYTES # (AUTO) 3.5 X10^3/uL (1.3-2.9); LYMPHOCYTES % (AUTO) 37.8 % (21.0-51.0); MEAN CORPUSCULAR HEMOGLOBIN 29.8 pg (27.0-34.0); MEAN CORPUSCULAR HGB CONC 33.9 g/dL (33.0-35.0); MEAN CORPUSCULAR VOLUME 87.8 fL (80.0-100.0); MEAN PLATELET VOLUME 8.3 fL (7.4-11.0); MONOCYTES # (AUTO) 0.6 x10^3/uL (0.3-0.8); MONOCYTES % (AUTO) 6.1 % (0.0-13.0); NEUTROPHILS # (AUTO) 4.8 x10^3/uL (2.2-4.8); PLATELET COUNT 276 X10^3/uL (150.0-450.0); RED BLOOD COUNT 4.23 X10^6/uL (3.5-5.4); RED CELL DISTRIBUTION WIDTH 14.5 % (11.6-16.5); WHITE BLOOD COUNT 9.3 X10^3/uL (3.6-10.0)
[2019-06-12 05:18] LABS: ALANINE AMINOTRANSFERASE 8 Units/L (12-78); ALBUMIN 3.1 g/dL (3.4-5.0); ALKALINE PHOSPHATASE 104 Units/L (46-116); ASPARTATE AMINO TRANSFERASE 9 Units/L (15-37); BLOOD UREA NITROGEN 12 mg/dL (7-18); CALCIUM 8.5 mg/dL (8.5-10.1); CARBON DIOXIDE 22.3 mmol/L (21-32); CHLORIDE 102 mmol/L (98-107); COR CA(FOR HYPOALB) 9.2 mg/dL (8.5-10.1); COR NA(FOR HYPERGLY) 142 mmol/L (136-145); CREATININE 1.02 mg/dL (0.55-1.02); MAGNESIUM 1.7 mg/dL (1.7-2.9); SODIUM 139 mmol/L (136-145); eGFR NON BLACK RACES > 60 (>60)
[2019-06-12 05:41] LABS: CKMB % 3.7 % (<4); CREATINE KINASE 27 Units/L (26-192); CREATINE KINASE MB < 1.0 ng/mL (0-4.0); TROPONIN I < 0.02 ng/mL (0-1.5)
[2019-06-12 11:33] VITALS: BP 117/62
[2019-06-12 12:06] VITALS: BMI 30.7
[2019-06-12 12:17] LABS: CKMB % 3.6 % (<4); CREATINE KINASE 28 Units/L (26-192); CREATINE KINASE MB < 1.0 ng/mL (0-4.0); TROPONIN I < 0.02 ng/mL (0-1.5)
[2019-06-12] MEDS ORDERED: SNACK - Diabetic Appropriate PO SCH (20:00)
--- NOTE | 2019-06-28 21:10 | DR.CARTERS ---
Short Stay Summary - Admission Date Date of Admission: 06/11/19 - Discharge Date Discharge Date: 06/12/19 - Admission Diagnoses (1) Hyperglycemia Status: Acute (2) Diabetic ketoacidosis Status: Acute (3) Chest pain, rule out acute myocardial infarction Status: Acute - Hospital Course Hospital Course: IS A 43 YEAR OLD PATIENT OF . SHE PRESENTED TO THE ER WITH COMPLAINTS OF RIGHT SIDED CHEST PAIN, RAPID HEART RATE, AND SHORTNESS OF BREATH. SHE REPORTED THAT SYMPTOMS STARTED EARLIER IN THE DAY. PAIN IS RATED 7/10. ON ARRIVAL TO THE ER, VITALS WERE 97.7-97-18-98%-138/71. LABS WERE OBTAINED. ABNORMAL LABS INCLUDE THE FOLLOWING: SODIUM 132, CHLORIDE 94, CREATININE 1.10, GLUCOSE 571, AST 9, ALT 9, ALK PHOS 132, ACETONES SMALL. CARDIAC ENZYMES WERE WITHIN NORMAL LIMITS. EKG REVEALED SINUS RHYTHM WITH HR 88. A CHEST XRAY WAS OBTAINED AND REVEALED: NO ACUTE CHEST PROCESS. SHE WAS GIVEN A NORMAL SALINE BOLUS, HUMULIN R 16 UNITS, THEN 14 UNITS. BLOOD GLUCOSE LEVELS DECREASED TO 216. SHE REPORTED SLIGHT IMPROVEMENT IN SYMPTOMS. HE WAS ADMITTED FOR FURTHER EVALUATION AND TREATMENT OF CHEST PAIN RULE OUT ACUTE MD, HYPERGLYCEMIA, AND KETOSIS. WE PLANNED TO OBTAIN SERIAL CARDIAC ENZYMES AND EKGS. SHE WAS STARTED ON IV FLUIDS AND HUMULIN R SLIDING SCALE. WE PLANNED TO FOLLOW UP WITH AM LABS AND CONTINUE TO MONITOR. ON THE MORNING FOLLOWING ADMISSION, PATIENT WAS ALERT AND ORIENTED, LYING IN BED ON MORNING ROUNDS. SHE DENIED CHEST PAIN OR SHORTNESS OF BREATH AND REPORTED FEELING WELL. ON EXAMINATION, HEART WAS REGULAR IN RATE AND RHYTHM. BILATERAL LUNGS WERE CLEAR TO AUSCULTATION. ABDOMEN WAS ROUND, SOFT, AND NON-TENDER WITH NORMAL BOWEL SOUNDS NOTED IN ALL QUADRANTS. HIS VITALS ON MORNING ROUNDS WERE 98.5-81-18-93%-129/70. LABS WERE OBTAINED. ABNORMAL LAB VALUES INCLUDED THE FOLLOWING: GLUCOSE 223, AST 9, ALT 8, ALBUMIN 3.1, ACETONES SMALL. CARDIAC ENZYMES WERE WITHIN NORMAL LIMITS. NO CHANGES NOTED TO EKGs. WE PLANNED FOR DISCHARGE. INSTRUCTIONS FOR MEDICATIONS AND FOLLOW UP WERE DISCUSSED WITH PATIENT. SHE VERBALIZED UNDERSTANDING. SHE WAS DISCHARGED HOME WITH [place] ESCRIPTIONS FOR ECOTRIN 81MG PO DAILY, LISINOPRIL 5MG PO HS, AND ROSUVASTATIN 5MG PO HS, AND WAS INSTRUCTED TO CONTINUE HER HOME MEDICATIONS OF HUMULIN R AND LEVEMIR.. SHE WAS INSTRUCTED TO FOLLOW UP WITH PCP IN 1 WEEK. SHE WAS DISCHARGED HOME WITH FAMILY IN STABLE CONDITION. - Discharge Medications Discharge Medications: Home Medication List insulin detemir U-100 [Levemir U-100 Insulin] 10 unit SUBCUT BID 06/11/19 [History] insulin regular human [Humulin R Regular U-100 Insuln] 10 unit SUBCUT BID 06/11/19 [History] aspirin [Ecotrin Low Strength] 81 mg PO QDAY #30 tab 06/12/19 [Rx] lisinopril [Zestril] 5 mg PO HS #30 tab 06/12/19 [Rx] rosuvastatin 5 mg PO HS #30 tab 06/12/19 [Rx] Prescriptions: aspirin [Ecotrin Low Strength] Garret Fritz lisinopril [Zestril] Garret Fritz rosuvastatin Garret Fritz Prescription drug monitoring program results: PDMP was not reviewed - Discharge Plan Disposition: AGAINST MEDICAL ADVICE Condition: Stable Prescriptions: aspirin [Ecotrin Low Strength] 81 mg PO QDAY #30 tab lisinopril [Zestril] 5 mg PO HS #30 tab rosuvastatin 5 mg PO HS #30 tab - Follow up/Referrals Follow up/Referrals: DIANA CADENA [Primary Care Provider] - 1 WEEK - Instructions Instructions: Nonspecific Chest Pain, [id number] Additional Instructions: DIET TOLERATED. ACTIVITY TOLERATED Forms: Excuse From Work or School
== END 2019-06-12 13:30 | disposition home or self-care (01) ==
LOC: MED/SURG 19:32 → ER 19:32 → MED/SURG 06-12 00:45
PROVIDERS: ADMIT Internal Medicine; ATTEND Obstetrics & Gynecology Obstetrics
DX: R06.02 Shortness of breath; Z79.01 Long term (current) use of anticoagulants; E11.65 Type 2 diabetes mellitus with hyperglycemia; E03.8 Other specified hypothyroidism; R07.89 Other chest pain; Z79.899 Other long term (current) drug therapy
CPT/HCPCS: 36415; 71010; 71045; 80053; 81001; 82009; 82550; 82553; 82947; 83735; 84484; 85025; 85610; 85730; 93005; 94760; 96365; 96367; 96372; 99284; A4222; G0378; J1815; J7030

== ENCOUNTER 2022-01-17 14:28 | Inpatient (IN) ==
[2022-01-17] MEDS ORDERED: NS 1,000 ML IV 1,000 ML ONE ×2 (14:34→15:49)
--- NOTE | 2022-01-17 14:41 | DR.DIZZY ---
HPI Time seen Time Seen by Provider: 01/17/22 14:39 Complaint Chief Complaint Doctor Comments: 46 y/o female brought in via EMS for evaluation. Has been ill this past week with abdominal pain, nausea and vomiting. Was seen here 3 weeks ago for vomiting. Started again last week writh vomiting. Was seen at another facility several days ago, states she can't keep down the nausea medicine. Having generalized weakness. Denies fever or chills. Moving bowels and bladder ok. No URI symptoms. Has h/o IDDM, since age 12. No regular MD, lost her insurance. COVID-19 Coronavirus risk:travel/contact w/high risk person: No Has patient experienced Coronavirus symptoms: No Nurses Notes Reviewed Nurses Notes Review: Yes Source History Provided: Patient Mode of Arrival Mode of Arrival: EMS Context Stroke Symptoms: None PMH PMH Past Medical History: Diabetes and Hypothyroidism Past Surgical History: Yes Surgical History: Hysterectomy Family History Family Medical History: Diabetes Mellitus, Cancer and Heart Failure Social History Do you use any recreational Drugs:: No ROS Review of Systems Constitutional: Malaise and Weakness Eyes: No Symptoms Reported ENTM: No Symptoms Reported Respiratoy: No Symptoms Reported Cardiovascular: No Symptoms Reported Gastrointestinal/Abdominal: Abdominal Pain, Nausea and Vomiting Genitourinary: No Symptoms Reported Neurological: Weakness Musculoskeletal: No Symptoms Reported Integumentary: No Symptoms Reported Hematologic/Lymphatic: No Symptoms Reported Psychiatric: No Symptoms Reported All Other Systems: Reviewed and Negative PE Vital Signs Vitals: Temperature 97.7 F Pulse Rate [Left] 140 Pulse Rate 120 Respiratory Rate 20 Blood Pressure [Left Arm] 129/62 Blood Pressure 118/59 O2 Sat by Pulse Oximetry 96 General Limitations: No Limitations General Appearance: Alert and In No Apparent Distress Head Head Exam: Normal Inspection Eyes Eye exam: PERRL and EOMI ENT ENT Exam: Normal Exam and Mucous Membranes Moist Neck Neck Exam: Normal Inspection and Full ROM Chest Chest Inspection: Normal Inspection Respiratory Respiratory Exam: Normal Lung Sounds Bilat; negative Accessory Muscle Use and Respiratory Distress Respiratory Exam: Bilateral: Clear to Auscultation Cardiovascular Cardiovascular Exam: Regular Rate, Normal Rhythm, Tachycardia and Normal Heart Sounds Abdominal Exam Abdominal Exam: Normal Inspection, Soft and Tenderness (across the upper abdomen, no guarding or rebound.) Extremeties Extremities Exam: Normal Inspection; negative Edema Back Back Exam: Normal Inspection Neurologic Neurological Exam: Alert, Oriented X3 and CN II-XII Intact; negative Motor Sensory Deficit Psychiatric Psychiatric Exam: Normal Affect Skin Skin Exam: Warm and Dry MDM Differential Diagnosis Differential Diagnosis: Dehydration, Electrolyte disorder and Other Differential Diagnosis Comment: viral illness, gastritis, gastroparesis COURSE Treatment Treatment: Pt ill x past week, with frequent N/V and abdominal pain. W/u initiated. Given IV fluids, IM phenergan. 1528 - glucose > 900, with small ketones, bicarb low at 9. Will obtain an ABG, and will give regular insulin, 12 U IV. pH low at 7.22. Clinically with degree of DKA. Pt informed of results. D eserves admission for further treatment. Discussed with Dr Oreilly, lobby concierge, accepts the admission. Will obtain a plain CT to look for underlying cause. Pt with mild renal injury, will hold off contrast at this time. ROR Labs Reviewed Laboratory Results Reviewed?: Yes Result Diagrams: 01/17/22 14:38 01/17/22 14:38 Laboratory: WBC 18.2 X10^3/uL (3.6-10.0) H 01/17/22 14:38 RBC 4.95 X10^6/uL (3.5-5.4) 01/17/22 14:38 Hgb 14.6 g/dL (12.0-16.0) 01/17/22 14:38 Hct 46.7 % (36.0-47.0) 01/17/22 14:38 MCV 94.3 fL (80.0-100.0) 01/17/22 14:38 MCH 29.5 pg (27.0-34.0) 01/17/22 14:38 MCHC 31.2 g/dL (33.0-35.0) L 01/17/22 14:38 RDW 15.7 % (11.6-16.5) 01/17/22 14:38 Plt Count 531 X10^3/uL (150.0-450.0) H 01/17/22 14:38 Plt Count Comment Increased (ADEQUATE) A 01/17/22 14:38 MPV 9.0 fL (7.4-11.0) 01/17/22 14:38 Neut % (Auto) 94.5 % (42.0-75.0) H 01/17/22 14:38 Lymph % (Auto) 2.9 % (21.0-51.0) L 01/17/22 14:38 [place] % (Auto) 2.5 % (0.0-13.0) 01/17/22 14:38 Eos % (Auto) 0.0 % (0.9-2.9) L 01/17/22 14:38 Baso % (Auto) 0.1 % (0.2-1.0) L 01/17/22 14:38 Neut # (Auto) 17.2 x10^3/uL (2.2-4.8) H 01/17/22 14:38 Lymph # (Auto) 0.5 X10^3/uL (1.3-2.9) L 01/17/22 14:38 [place] # (Auto) 0.4 x10^3/uL (0.3-0.8) 01/17/22 14:38 Eos # (Auto) 0.0 x10^3/uL (0.0-0.2) 01/17/22 14:38 Baso # (Auto) 0.0 X10^3/uL (0.0-0.1) 01/17/22 14:38 Absolute Nucleated RBC 0.0 /100WBC 01/17/22 14:38 Total Counted 100 01/17/22 14:38 Neutrophils % (Manual) 98 % (39-76) H 01/17/22 14:38 Lymphocytes % (Manual) 1 % (13-43) L 01/17/22 14:38 Monocytes % (Manual) 1 % (4-9) L 01/17/22 14:38 Plt Morphology Comment Normal (NORMAL) 01/17/22 14:38 RBC Morphology Normal (NORMAL) 01/17/22 14:38 Sample Site Rra 01/17/22 16:18 ABG pH 7.220 (7.35-7.45) L 01/17/22 16:18 ABG pCO2 24.0 mmHg (35.0-45.0) L 01/17/22 16:18 ABG pO2 102.0 mmHg (80.0-100.0) H 01/17/22 16:18 ABG HCO3 9.8 mmol/L (22-26) L* 01/17/22 16:18 ABG O2 Saturation 96.0 % (90-100) 01/17/22 16:18 ABG Base Excess -16.2 mmol/L (-2.0-2.0) L 01/17/22 16:18 Yared Test Pos 01/17/22 16:18 A-a Gradient 18.0 mmHg 01/17/22 16:18 FiO2 21.0 01/17/22 16:18 Blood Gas Comments 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 01/17/22 16:18 Sodium 130 mmol/L (136-145) L 01/17/22 14:38 Corrected Sodium 149 mmol/L (136-145) H 01/17/22 14:38 Potassium 5.3 mmol/L (3.5-5.1) H 01/17/22 14:38 Chloride 91 mmol/L (98-107) L 01/17/22 14:38 Carbon Dioxide 9.6 mmol/L (21-32) L* 01/17/22 14:38 BUN 19 mg/dL (7-18) H 01/17/22 14:38 Creatinine 2.00 mg/dL (0.55-1.02) H 01/17/22 14:38 Est GFR (MDRD) Af Amer 34 (>60) L 01/17/22 14:38 Est GFR (MDRD) Non-Af 28 (>60) L 01/17/22 14:38 Glucose 911 mg/dL (65-99) H* 01/17/22 14:38 Calcium 9.5 mg/dL (8.5-10.1) 01/17/22 14:38 Corrected Calcium TNP 01/17/22 14:38 Total Bilirubin 0.60 mg/dL (0.2-1.0) 01/17/22 14:38 AST 12 Units/L (15-37) L 01/17/22 14:38 ALT 16 Units/L (12-78) 01/17/22 14:38 Alkaline Phosphatase 145 Units/L (46-116) H 01/17/22 14:38 Total Protein 8.6 g/dL (6.4-8.2) H 01/17/22 14:38 Albumin 3.9 g/dL (3.4-5.0) 01/17/22 14:38 Globulin 4.7 g/dL (2.5-4.5) H 01/17/22 14:38 Albumin/Globulin Ratio 0.8 Ratio (1.1-2.1) L 01/17/22 14:38 Lipase 36 Units/L (73-393) L 01/17/22 14:38 Specimen Type Random urine 01/17/22 16:05 Urine Color Pale yellow (YELLOW) 01/17/22 16:05 Urine Appearance Clear (CLEAR) 01/17/22 16:05 Urine pH 5.0 (5.0 - 8.0) 01/17/22 16:05 Ur Specific [place] 1.015 (1.000-1.030) 01/17/22 16:05 Urine Protein Negative (NEGATIVE) 01/17/22 16:05 Urine Glucose (UA) 4+ (NEGATIVE) 01/17/22 16:05 Urine Ketones 4+ (NEGATIVE) 01/17/22 16:05 Urine Blood 2+ (NEGATIVE) 01/17/22 16:05 Urine Nitrite Negative (NEGATIVE) 01/17/22 16:05 Urine Bilirubin Negative (NEGATIVE) 01/17/22 16:05 Urine Urobilinogen Normal (NORMAL) 01/17/22 16:05 Ur Leukocyte Esterase Negative (NEGATIVE) 01/17/22 16:05 Urine RBC 0-2 /HPF (0-3) 01/17/22 16:05 Urine WBC 3-5 /HPF (0-5) 01/17/22 16:05 Ur Squamous Epith Cells Many /HPF (NEGATIVE) 01/17/22 16:05 Urine Bacteria Trace /HPF (NEGATIVE) 01/17/22 16:05 Urine Yeast Moderate /HPF (NEGATIVE) 01/17/22 16:05 Ur Culture Indicated? No/not indicated 01/17/22 16:05 Acetone, Semi-Quant Small (NEGATIVE) H 01/17/22 14:38 SARS CoV-2 RNA Rapid [place] Negative (NEGATIVE) 01/17/22 14:39 Other Results Comments: Glucose 911, Bicarb 9.6, + small amount serum acetone. Opioid Opioid Risk Tool Age (Zack box if 16-45): No History of Preadolescent Sexual Abuse: No Psychological Disease: Depression Total: 0 Total Score Risk Category: Low Risk Copyright: [facility] predicting aberrant behaviors Diagnosis Discharge Problem: Diabetic keto-acidosis Qualifiers: Diabetes mellitus type: type 1 Diabetes mellitus complication detail: without coma Qualified Code(s): E10.10 - Type 1 diabetes mellitus with ketoacidosis without coma Instructions Forms: Precautions for COVID19 [facility] Patient Portal Social Distancing
[2022-01-17] MEDS ORDERED: PHENERGAN INJ 25 MG IM ONE ×2 (14:46→15:03)
[2022-01-17 14:57] LABS: BASOPHILS % (AUTO) 0.1 % (0.2-1.0); HEMATOCRIT 46.7 % (36.0-47.0); HEMOGLOBIN 14.6 g/dL (12.0-16.0); LYMPHOCYTES # (AUTO) 0.5 X10^3/uL (1.3-2.9); LYMPHOCYTES % (AUTO) 2.9 % (21.0-51.0); MEAN CORPUSCULAR HEMOGLOBIN 29.5 pg (27.0-34.0); MEAN CORPUSCULAR HGB CONC 31.2 g/dL (33.0-35.0); MEAN CORPUSCULAR VOLUME 94.3 fL (80.0-100.0); MONOCYTES # (AUTO) 0.4 x10^3/uL (0.3-0.8); MONOCYTES % (AUTO) 2.5 % (0.0-13.0); NEUTROPHILS # (AUTO) 17.2 x10^3/uL (2.2-4.8); NEUTROPHILS % (AUTO) 94.5 % (42.0-75.0); RED BLOOD COUNT 4.95 X10^6/uL (3.5-5.4); RED CELL DISTRIBUTION WIDTH 15.7 % (11.6-16.5); WHITE BLOOD COUNT 18.2 X10^3/uL (3.6-10.0)
[2022-01-17] MEDS ORDERED: NS 1,000 ML IV 1,000 ML IV ONE ×2 (15:02→15:51)
[2022-01-17 15:08] LABS: ALANINE AMINOTRANSFERASE 16 Units/L (12-78); ALBUMIN 3.9 g/dL (3.4-5.0); ALKALINE PHOSPHATASE 145 Units/L (46-116); ASPARTATE AMINO TRANSFERASE 12 Units/L (15-37); BLOOD UREA NITROGEN 19 mg/dL (7-18); CALCIUM 9.5 mg/dL (8.5-10.1); CHLORIDE 91 mmol/L (98-107); LIPASE 36 Units/L (73-393); SODIUM 130 mmol/L (136-145); TOTAL PROTEIN 8.6 g/dL (6.4-8.2); eGFR NON BLACK RACES 28 (>60)
[2022-01-17 15:13] LABS: PLATELET MORPHOLOGY COMMENT NORMAL (NORMAL)
[2022-01-17] MEDS ORDERED: NovoLIN R (or HumuLIN R) IV ONE (15:25)
[2022-01-17 15:26] LABS: CARBON DIOXIDE 9.6 mmol/L (21-32); COR NA(FOR HYPERGLY) 149 mmol/L (136-145)
[2022-01-17] MEDS ORDERED: NovoLIN R (or HumuLIN R) ONE ×2 (15:32→15:36)
[2022-01-17 16:21] LABS: BILIRUBIN,URINE NEGATIVE (NEGATIVE); BLOOD/HEMOGLOBIN,URINE 2+ (NEGATIVE); GLUCOSE, URINE 4+ (NEGATIVE); KETONES,URINE 4+ (NEGATIVE); LEUKOCYTE ESTERASE ,URINE NEGATIVE (NEGATIVE); NITRITES,URINE NEGATIVE (NEGATIVE); PROTEIN,URINE NEGATIVE (NEGATIVE); UROBILINOGEN,URINE NORMAL (NORMAL)
[2022-01-17 16:21] LABS: ABG BASE EXCESS -16.2 mmol/L (-2.0-2.0)
[2022-01-17 16:22] LABS: ABG ALLEN TEST POS; ABG HCO3 9.8 mmol/L (22-26)
[2022-01-17 16:27] LABS: APPEARANCE,URINE CLEAR (CLEAR); COLOR,URINE PALE YELLOW (YELLOW)
[2022-01-17 16:28] LABS: BACTERIA,URINE TRACE /HPF (NEGATIVE); RBC,URINE 0-2 /HPF (0-3); SQUAMOUS EPITHELIAL CELL,UR MANY /HPF (NEGATIVE)
[2022-01-17 16:29] LABS: YEAST,URINE MODERATE /HPF (NEGATIVE)
--- NOTE | 2022-01-17 17:36 | CT ---
EXAM: CT ABDOMEN AND PELVIS WITHOUT INTRAVENOUS CONTRASTHISTORY: Weakness. Nausea and vomiting.TECHNIQUE: Spiral axial CT images are obtained through the abdomen and pelvis without the administration of intravenous contrast. Additional coronal and sagittal reformatted images are reconstructed.DOSIMETRY: Total DLP 1192.8 mGycm; CTDI 21.8 mGyCOMPARISON: CT abdomen and pelvis dated March 12, 2020.FINDINGS:GASTROINTESTINAL TRACT: There is no evidence for bowel herniation, bowel obstruction, colitis or diverticulitis. A normal-appearing appendix is seen.GENITOURINARY SYSTEM: The kidneys are unremarkable. There is no ureteral calculus or stigmata of obstructive uropathy. The urinary bladder is grossly unremarkable for a non-dedicated exam.CT ABDOMEN: Status post cholecystectomy. The liver, spleen, pancreas, adrenal glands, aorta, and inferior vena cava are within normal limits for a noncontrast CT scan. There is no intra-abdominal or retroperitoneal lymphadenopathy, free fluid, or free air seen. No abdominal herniation is noted. There is stable appearance of bilateral anterior abdominal wall cutaneous thickening (especially at the level of the umbilicus); DDx includes chronic cutaneous scarring. Interval appearance of an approximately 7 cm transverse colon 2.2 cm CC by 2.2 cm AP fluid collection within the left anterior lateral lower abdominal wall; DDx includes chronic hematoma or superinfected fluid collection/abscess in the appropriate clinical setting. Axial image 51?60; coronal image 8?15.CT PELVIS: Status post hysterectomy. No pelvic sidewall or inguinal lymphadenopathy is seen. No inguinal herniation is noted. No free fluid or free air is seen.BONES AND JOINTS: The visualized bony structures are within normal limits.LUNG BASES: The lung bases are clear.IMPRESSION:1. Interval appearance of an approximately 7 cm transverse colon 2.2 cm CC by 2.2 cm AP fluid collection within the left anterior lateral lower abdominal wall; DDx includes chronic hematoma or superinfected fluid collection/abscess in the appropriate clinical setting. Axial image 51?60; coronal image 8?15.2. No evidence for renal stone disease or obstructive uropathy.3. No evidence for acute appendicitis, bowel herniation/obstruction, colitis or diverticulitis seen.4. No free fluid, free air, mass lesions, or lymphadenopathy seen.5. Stable appearance of bilateral anterior abdominal wall cutaneous thickening (especially at the level of the umbilicus); DDx includes chronic cutaneous scarring.6. Status post cholecystectomy and hysterectomy.Electronically signed by: Jerry Pace (Jan 17, 2022 17:35:29)
[2022-01-17] MEDS ORDERED: KLONOPIN TAB 1 MG PO PRN (17:47)
[2022-01-17] MEDS: ZOFRAN INJ 4 MG VIAL IVP PRN (19:54)
[2022-01-17] MEDS: NS 1,000 ML IV 1,000 ML IV SCH (20:07)
[2022-01-17] MEDS: SNACK - Diabetic Appropriate PO SCH (20:08)
[2022-01-17] MEDS: MYXREDLIN 100 UNIT/100 ML BAG 100 UNIT/100 ML PLAST..BAG IV PRN (20:11)
[2022-01-17 20:47] LABS: ABG BASE EXCESS -13.7 mmol/L (-2.0-2.0)
[2022-01-17 20:48] LABS: ABG ALLEN TEST POS; ABG HCO3 9.7 mmol/L (22-26)
[2022-01-17 21:32] LABS: BILIRUBIN,URINE NEGATIVE (NEGATIVE); BLOOD/HEMOGLOBIN,URINE NEGATIVE (NEGATIVE); GLUCOSE, URINE 4+ (NEGATIVE); KETONES,URINE 4+ (NEGATIVE); LEUKOCYTE ESTERASE ,URINE NEGATIVE (NEGATIVE); NITRITES,URINE NEGATIVE (NEGATIVE); PROTEIN,URINE NEGATIVE (NEGATIVE); UROBILINOGEN,URINE NORMAL (NORMAL)
[2022-01-17 21:37] LABS: APPEARANCE,URINE CLEAR (CLEAR); COLOR,URINE YELLOW (YELLOW)
[2022-01-17 21:47] LABS: CKMB % 4.2 % (<4); CREATINE KINASE 24 Units/L (26-192); CREATINE KINASE MB < 1.0 ng/mL (0-4.0)
--- NOTE | 2022-01-17 22:52 | RAD ---
HISTORYSOB Relevant Clinical InformationSTUDYCHEST, 1 [id number]/23/2020.FINDINGSThe trachea is midline. The cardiac silhouette is unremarkable. There is some mild nonspecific interstitial prominence. There is some stranding in the base suggestive of atelectasis. Infection is not excluded. There is no pleural effusion. The bony thorax is unremarkable.IMPRESSIONNonspecific interstitial prominence base stranding. Question atelectasis versus early infiltrate.Electronically signed by: Nelson Neumann (Jan 17, 2022 22:51:27)
[2022-01-17 22:59] LABS: CALCIUM 9.1 mg/dL (8.5-10.1); CARBON DIOXIDE 18.8 mmol/L (21-32); CREATININE 1.61 mg/dL (0.55-1.02)
[2022-01-17] MEDS: PHENERGAN INJ 25 MG IM PRN (23:21)
[2022-01-18] MEDS: NS 1,000 ML IV 1,000 ML IV SCH ×5 (02:25→19:00)
[2022-01-18 02:39] LABS: CALCIUM 8.7 mg/dL (8.5-10.1); CREATININE 1.46 mg/dL (0.55-1.02)
[2022-01-18] MEDS: ZOFRAN INJ 4 MG VIAL IVP PRN (03:05)
[2022-01-18 05:31] LABS: ABG BASE EXCESS -3.8 mmol/L (-2.0-2.0); ABG HCO3 20.7 mmol/L (22-26)
[2022-01-18 05:33] LABS: ABG ALLEN TEST YES
[2022-01-18 06:15] LABS: BASOPHILS # (AUTO) 0.2 X10^3/uL (0.0-0.1); BASOPHILS % (AUTO) 0.6 % (0.2-1.0); EOSINOPHILS % (AUTO) 0.1 % (0.9-2.9); HEMATOCRIT 38.1 % (36.0-47.0); HEMOGLOBIN 12.9 g/dL (12.0-16.0); LYMPHOCYTES # (AUTO) 2.8 X10^3/uL (1.3-2.9); LYMPHOCYTES % (AUTO) 11.3 % (21.0-51.0); MEAN CORPUSCULAR HEMOGLOBIN 29.5 pg (27.0-34.0); MEAN CORPUSCULAR HGB CONC 33.9 g/dL (33.0-35.0); MEAN CORPUSCULAR VOLUME 87.1 fL (80.0-100.0); MEAN PLATELET VOLUME 7.8 fL (7.4-11.0); MONOCYTES # (AUTO) 1.7 x10^3/uL (0.3-0.8); MONOCYTES % (AUTO) 6.8 % (0.0-13.0); NEUTROPHILS # (AUTO) 19.9 x10^3/uL (2.2-4.8); NEUTROPHILS % (AUTO) 81.2 % (42.0-75.0); RED BLOOD COUNT 4.38 X10^6/uL (3.5-5.4); RED CELL DISTRIBUTION WIDTH 14.9 % (11.6-16.5); WHITE BLOOD COUNT 24.5 X10^3/uL (3.6-10.0)
[2022-01-18 06:41] LABS: BLOOD UREA NITROGEN 19 mg/dL (7-18); CALCIUM 8.6 mg/dL (8.5-10.1); CARBON DIOXIDE 19.9 mmol/L (21-32); CHLORIDE 106 mmol/L (98-107); COR NA(FOR HYPERGLY) 140 mmol/L (136-145); SODIUM 139 mmol/L (136-145); eGFR NON BLACK RACES 51 (>60)
[2022-01-18 07:33] LABS: BAND NEUTROPHILS % 2 % (0-10); METAMYELOCYTES % 2; PLATELET MORPHOLOGY COMMENT NORMAL (NORMAL)
[2022-01-18] MEDS ORDERED: ZOFRAN INJ 4 MG VIAL IVP PRN (08:25)
[2022-01-18 08:30] VITALS: BMI 36.8
[2022-01-18] MEDS: PHENERGAN INJ 25 MG IM PRN (08:38)
[2022-01-18 09:08] LABS: BLOOD UREA NITROGEN 17 mg/dL (7-18); CALCIUM 8.3 mg/dL (8.5-10.1); CARBON DIOXIDE 22.4 mmol/L (21-32); CHLORIDE 104 mmol/L (98-107); COR NA(FOR HYPERGLY) 138 mmol/L (136-145); CREATININE 1.06 mg/dL (0.55-1.02); SODIUM 137 mmol/L (136-145); eGFR NON BLACK RACES 59 (>60)
[2022-01-18] MEDS: PriLOSEC PO SCH (09:25)
[2022-01-18 13:18] LABS: ABG ALLEN TEST POS; ABG BASE EXCESS -2.6 mmol/L (-2.0-2.0); ABG HCO3 21.7 mmol/L (22-26)
[2022-01-18] MEDS: SNACK - Diabetic Appropriate PO SCH (20:23)
[2022-01-19] MEDS: MYXREDLIN 100 UNIT/100 ML BAG 100 UNIT/100 ML PLAST..BAG IV PRN (01:37)
[2022-01-19] MEDS: NS 1,000 ML IV 1,000 ML IV SCH ×2 (04:17)
[2022-01-19 05:41] LABS: BASOPHILS # (AUTO) 0.1 X10^3/uL (0.0-0.1); BASOPHILS % (AUTO) 1.1 % (0.2-1.0); EOSINOPHILS # (AUTO) 0.1 x10^3/uL (0.0-0.2); EOSINOPHILS % (AUTO) 0.6 % (0.9-2.9); HEMATOCRIT 33.7 % (36.0-47.0); HEMOGLOBIN 11.4 g/dL (12.0-16.0); LYMPHOCYTES # (AUTO) 4.7 X10^3/uL (1.3-2.9); LYMPHOCYTES % (AUTO) 36.7 % (21.0-51.0); MEAN CORPUSCULAR HEMOGLOBIN 29.4 pg (27.0-34.0); MEAN CORPUSCULAR VOLUME 86.7 fL (80.0-100.0); MEAN PLATELET VOLUME 8.3 fL (7.4-11.0); MONOCYTES # (AUTO) 0.8 x10^3/uL (0.3-0.8); MONOCYTES % (AUTO) 6.4 % (0.0-13.0); NEUTROPHILS # (AUTO) 7.1 x10^3/uL (2.2-4.8); NEUTROPHILS % (AUTO) 55.2 % (42.0-75.0); RED BLOOD COUNT 3.88 X10^6/uL (3.5-5.4); RED CELL DISTRIBUTION WIDTH 15.1 % (11.6-16.5); WHITE BLOOD COUNT 12.9 X10^3/uL (3.6-10.0)
[2022-01-19 05:46] LABS: SERUM ACETONE SMALL (NEGATIVE)
[2022-01-19 05:58] LABS: ALANINE AMINOTRANSFERASE 13 Units/L (12-78); ALBUMIN 2.5 g/dL (3.4-5.0); ALKALINE PHOSPHATASE 87 Units/L (46-116); ASPARTATE AMINO TRANSFERASE 14 Units/L (15-37); BLOOD UREA NITROGEN 9 mg/dL (7-18); CALCIUM 7.9 mg/dL (8.5-10.1); CARBON DIOXIDE 24.6 mmol/L (21-32); CHLORIDE 103 mmol/L (98-107); COR CA(FOR HYPOALB) 9.1 mg/dL (8.5-10.1); COR NA(FOR HYPERGLY) 138 mmol/L (136-145); CREATININE 0.78 mg/dL (0.55-1.02); SODIUM 137 mmol/L (136-145); TOTAL PROTEIN 5.9 g/dL (6.4-8.2); eGFR NON BLACK RACES > 60 (>60)
[2022-01-19] MEDS: PriLOSEC PO SCH (10:03)
[2022-01-19] MEDS ORDERED: NovoLIN N or HumuLIN N SC ONE (12:24)
[2022-01-19 14:38] VITALS: BP 182/89
--- NOTE | 2022-04-28 21:11 | DR.H&P ---
H&P History & Physical for Day of: H&P Date: 01/17/22 Chief Complaint Chief Complaint: Nausea and vomiting Allergies Allergies Allergy/AdvReac Type Severity Reaction Status Date / Time latex Allergy Verified 01/17/22 14:45 History of Present Illness History of Present Illness: This is a pleasant 46-year-old white female who presented to the emergency department with a few day history of nausea and vomiting. She reports she cannot keep anything down. She had recently been in another facility with an illness and work-up today reveals that she has some diabetic ketoacidosis. 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, Tonsillectomy and Other Family History Family Medical History: Diabetes Mellitus, Cancer and Heart Failure Social History Type of Tobacco Use: Cigarettes Alcohol Use: None Drug Use: Prescription Drugs Medications Home Medications: latex Allergy (Verified 01/17/22 14:45) Labs Result Diagrams: 01/19/22 04:46 01/19/22 04:46 Labs: 01/17/22 21:12 Blood Blood Culture - Final 01/17/22 21:00 Blood Blood Culture - Final 01/17/22 21:00 Urine,Clean Catch Urine Culture - Final Laboratory WBC 12.9 X10^3/uL (3.6-10.0) H D 01/19/22 04:46 RBC 3.88 X10^6/uL (3.5-5.4) 01/19/22 04:46 Hgb 11.4 g/dL (12.0-16.0) L 01/19/22 04:46 Hct 33.7 % (36.0-47.0) L 01/19/22 04:46 MCV 86.7 fL (80.0-100.0) 01/19/22 04:46 MCH 29.4 pg (27.0-34.0) 01/19/22 04:46 MCHC 34.0 g/dL (33.0-35.0) 01/19/22 04:46 RDW 15.1 % (11.6-16.5) 01/19/22 04:46 Plt Count 313 X10^3/uL (150.0-450.0) 01/19/22 04:46 Plt Count Comment Adequate (ADEQUATE) 01/18/22 06:00 MPV 8.3 fL (7.4-11.0) 01/19/22 04:46 Neut % (Auto) 55.2 % (42.0-75.0) 01/19/22 04:46 Lymph % (Auto) 36.7 % (21.0-51.0) 01/19/22 04:46 [place] % (Auto) 6.4 % (0.0-13.0) 01/19/22 04:46 Eos % (Auto) 0.6 % (0.9-2.9) L 01/19/22 04:46 Baso % (Auto) 1.1 % (0.2-1.0) H 01/19/22 04:46 Neut # (Auto) 7.1 x10^3/uL (2.2-4.8) H 01/19/22 04:46 Lymph # (Auto) 4.7 X10^3/uL (1.3-2.9) H 01/19/22 04:46 [place] # (Auto) 0.8 x10^3/uL (0.3-0.8) 01/19/22 04:46 Eos # (Auto) 0.1 x10^3/uL (0.0-0.2) 01/19/22 04:46 Baso # (Auto) 0.1 X10^3/uL (0.0-0.1) 01/19/22 04:46 Absolute Nucleated RBC 0.0 /100WBC 01/19/22 04:46 Total Counted 100 01/18/22 06:00 Neutrophils % (Manual) 81 % (39-76) H 01/18/22 06:00 Band Neutrophils % 2 % (0-10) 01/18/22 06:00 Lymphocytes % (Manual) 13 % (13-43) 01/18/22 06:00 Monocytes % (Manual) 2 % (4-9) L 01/18/22 06:00 Metamyelocytes % 2 01/18/22 06:00 Plt Morphology Comment Normal (NORMAL) 01/18/22 06:00 RBC Morphology Normal (NORMAL) 01/18/22 06:00 Sample Site Rra 01/18/22 13:15 ABG pH 7.400 (7.35-7.45) 01/18/22 13:15 ABG pCO2 35.0 mmHg (35.0-45.0) 01/18/22 13:15 ABG pO2 75.0 mmHg (80.0-100.0) L 01/18/22 13:15 ABG HCO3 21.7 mmol/L (22-26) L 01/18/22 13:15 ABG O2 Saturation 95.0 % (90-100) 01/18/22 13:15 ABG Base Excess -2.6 mmol/L (-2.0-2.0) L 01/18/22 13:15 Yared Test Pos 01/18/22 13:15 A-a Gradient 31.0 mmHg 01/18/22 13:15 FiO2 21.0 01/18/22 13:15 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:15 Sodium 137 mmol/L (136-145) 01/19/22 04:46 Corrected Sodium 138 mmol/L (136-145) 01/19/22 04:46 Potassium 3.4 mmol/L (3.5-5.1) L 01/19/22 04:46 Chloride 103 mmol/L (98-107) 01/19/22 04:46 Carbon Dioxide 24.6 mmol/L (21-32) 01/19/22 04:46 BUN 9 mg/dL (7-18) 01/19/22 04:46 Creatinine 0.78 mg/dL (0.55-1.02) 01/19/22 04:46 Est GFR (MDRD) Af Amer > 60 (>60) 01/19/22 04:46 Est GFR (MDRD) Non-Af > 60 (>60) 01/19/22 04:46 Glucose 140 mg/dL (65-99) H 01/19/22 04:46 POC Glucose (mg/dL) 231 mg/dL (65-99) H 01/19/22 11:11 Calcium 7.9 mg/dL (8.5-10.1) L 01/19/22 04:46 Corrected Calcium 9.1 mg/dL (8.5-10.1) 01/19/22 04:46 Total Bilirubin 0.40 mg/dL (0.2-1.0) 01/19/22 04:46 AST 14 Units/L (15-37) L 01/19/22 04:46 ALT 13 Units/L (12-78) 01/19/22 04:46 Alkaline Phosphatase 87 Units/L (46-116) 01/19/22 04:46 Creatine Kinase 24 Units/L (26-192) L 01/17/22 21:00 CK-MB (CK-2) < 1.0 ng/mL (0-4.0) 01/17/22 21:00 CK/CKMB % Calc 4.2 % (<4) 01/17/22 21:00 Troponin I High Sens 14.7 ng/L (4.0-60.0) 01/17/22 21:00 B-Natriuretic Peptide 68.6 pg/mL (0-79) 01/17/22 22:22 Total Protein 5.9 g/dL (6.4-8.2) L 01/19/22 04:46 Albumin 2.5 g/dL (3.4-5.0) L 01/19/22 04:46 Globulin 3.4 g/dL (2.5-4.5) 01/19/22 04:46 Albumin/Globulin Ratio 0.7 Ratio (1.1-2.1) L 01/19/22 04:46 Lipase 36 Units/L (73-393) L 01/17/22 14:38 Specimen Type Catherized urine 01/17/22 21:00 Urine Color Yellow (YELLOW) 01/17/22 21:00 Urine Appearance Clear (CLEAR) 01/17/22 21:00 Urine pH 5.0 (5.0 - 8.0) 01/17/22 21:00 Ur Specific [place] 1.010 (1.000-1.030) 01/17/22 21:00 Urine Protein Negative (NEGATIVE) 01/17/22 21:00 Urine Glucose (UA) 4+ (NEGATIVE) 01/17/22 21:00 Urine Ketones 4+ (NEGATIVE) 01/17/22 21:00 Urine Blood Negative (NEGATIVE) 01/17/22 21:00 Urine Nitrite Negative (NEGATIVE) 01/17/22 21:00 Urine Bilirubin Negative (NEGATIVE) 01/17/22 21:00 Urine Urobilinogen Normal (NORMAL) 01/17/22 21:00 Ur Leukocyte Esterase Negative (NEGATIVE) 01/17/22 21:00 Urine RBC 0-2 /HPF (0-3) 01/17/22 16:05 Urine WBC 3-5 /HPF (0-5) 01/17/22 16:05 Ur Squamous Epith Cells Many /HPF (NEGATIVE) 01/17/22 16:05 Urine Bacteria Trace /HPF (NEGATIVE) 01/17/22 16:05 Urine Yeast Moderate /HPF (NEGATIVE) 01/17/22 16:05 Ur Culture Indicated? No/not indicated 01/17/22 16:05 Acetone, Semi-Quant Small (NEGATIVE) H 01/19/22 04:46 SARS CoV-2 RNA Rapid ARNOLD Negative (NEGATIVE) 01/17/22 14:39 Review of Systems Constitutional: Weakness and Malaise Eyes: No Symptoms Reported ENT: No Symptoms Reported Respiratory: No Symptoms Reported Cardiovascular: No Symptoms Reported Gastrointestinal: Nausea and Vomiting Genitourinary: No Symptoms Reported Musculoskeletal: No Symptoms Reported Skin: No Symptoms Reported Neurological: No Symptoms Reported Physical Exam Vital Signs: Temperature 98.4 F Pulse Rate [Left] 90 Pulse Rate 120 Respiratory Rate 14 Blood Pressure [Left Arm] 142/63 Blood Pressure 182/89 O2 Sat by Pulse Oximetry 100 Oriented: Normal, Time, Person and Place Eyes: Normal Ear: Normal Nose: Normal Throat: Normal Respiratory: Clear Throughout Cardiovascular: Normal : Normal Auscultation: Bowel Sounds: Normal Palpation: Normal Tenderness: Normal Skin: Normal Musculoskeletal: Normal Psychiatric: Normal Mood Description: Calm Affect: Normal Speech Pattern: Clear and Appropriate Assessment/Plan (1) Diabetic keto-acidosis: Qualifiers: Diabetes mellitus type: type 1 Status: Acute Plan: IV fluid and insulin drip per protocol until serum acetone is negative. Repeat serum acetone again later tomorrow morning. (2) Nausea and vomiting: Qualifiers: Vomiting type: unspecified Qualified Code(s): R11.2 - Nausea with vomiting, unspecified Status: Acute Plan: IV ondansetron for nausea and vomiting. (3) Dehydration: Status: Acute Plan: IV fluid hydration.
== END 2022-01-19 15:15 | disposition home or self-care (01) | DRG 639 ==
LOC: ER 14:28 → ICU 17:02
PROVIDERS: ADMIT Family Medicine; ATTEND Obstetrics & Gynecology Obstetrics
DX: E86.0 Dehydration; E10.10 Type 1 diabetes mellitus with ketoacidosis without coma; Z20.822 Contact with and (suspected) exposure to COVID-19; K52.89 Other specified noninfective gastroenteritis and colitis

== ENCOUNTER 2022-01-22 09:38 | Inpatient (IN) ==
--- NOTE | 2022-01-22 09:53 | DR.DIZZY ---
HPI Time seen Time Seen by Provider: 01/22/22 09:52 Complaint Chief Complaint Doctor Comments: 46 y/o female brought in via EMS for evaluation. Recently hospitalized for hyperglycemia, possible "stomach bug", d/c'd 2 days ago. Not feeling well since yesterday, + worsened this am. Having epigastric abdominal pain. Can't describe the pain, fairly constant, radiates to the chest. Nothing makes it better, nothing makes it worse. Associated with nausea, vomiting, shortness of breath. Denies fever, chills, diarrhea, urinary issues. Didn't take her insulin this am due to feeling poorly. 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, Tonsillectomy and Other Family History Family Medical History: Diabetes Mellitus, Cancer and Heart Failure Social History Do you use any recreational Drugs:: No Travel Risk Coronavirus risk:travel/contact w/high risk person: No Has patient experienced Coronavirus symptoms: No ROS Review of Systems Constitutional: Malaise, Weakness and Loss of Appetite Eyes: No Symptoms Reported ENTM: No Symptoms Reported Respiratoy: Short of Breath Cardiovascular: Chest Pain Gastrointestinal/Abdominal: Abdominal Pain, Nausea and Vomiting Genitourinary: No Symptoms Reported Neurological: Weakness Musculoskeletal: No Symptoms Reported Integumentary: No Symptoms Reported Hematologic/Lymphatic: No Symptoms Reported Psychiatric: No Symptoms Reported All Other Systems: Reviewed and Negative PE Vital Signs Vitals: Temperature 97.2 F Pulse Rate [Right] 117 Pulse Rate 118 Respiratory Rate 29 Blood Pressure [Left Arm] 130/58 Blood Pressure 127/60 O2 Sat by Pulse Oximetry 100 General Limitations: No Limitations General Appearance: Alert and In No Apparent Distress Head Head Exam: Normal Inspection Eyes Eye exam: PERRL and EOMI ENT ENT Exam: Normal Exam and Mucous Membranes Moist Neck Neck Exam: Normal Inspection and Full ROM Chest Chest Inspection: Normal Inspection Respiratory Respiratory Exam: Normal Lung Sounds Bilat; negative Accessory Muscle Use and Respiratory Distress Respiratory Exam: Bilateral: Clear to Auscultation Cardiovascular Cardiovascular Exam: Regular Rate, Normal Rhythm and Normal Heart Sounds Abdominal Exam Abdominal Exam: Normal Inspection, Normal Bowel Sounds, Soft and Tenderness (epigastric); negative Guarding and Rebound Extremeties Extremities Exam: Normal Inspection and Full ROM; negative Edema Back Back Exam: Normal Inspection; negative (R) CVA Tenderness and (L) CVA Tenderness Neurologic Neurological Exam: Alert, Oriented X3 and CN II-XII Intact; negative Motor Sensory Deficit Psychiatric Psychiatric Exam: Normal Affect Skin Skin Exam: Warm and Dry MDM Differential Diagnosis Differential Diagnosis: Dehydration and Electrolyte disorder Differential Diagnosis Comment: gastritis, pancreatitis, diverticulitis, constipation COURSE Treatment Treatment: 46 y/o female presents with upper abdominal pain, N/V. W/u initiated. Given IV fluids, IV zofran/morphine. W/u shows elevated WBC 15K, glucose 561, low bicarb at 8. Additional tests ordered - + moderate serum acetone, ABG with a pH 7.11, low pCO2. Findings c/w DKA. Pt given IV regular insulin 10 U bolus. D iscussed with her attending, Dr Uriostegui. He will admit. Pt given additional fluids, started insulin drip. Plain CT of abd/pelvis obtained, no obvious acute abnormalities. ROR Labs Reviewed Laboratory Results Reviewed?: Yes Result Diagrams: 01/22/22 10:14 01/22/22 10:14 Laboratory: WBC 15.3 X10^3/uL (3.6-10.0) H 01/22/22 10:14 RBC 4.80 X10^6/uL (3.5-5.4) 01/22/22 10:14 Hgb 14.2 g/dL (12.0-16.0) 01/22/22 10:14 Hct 43.3 % (36.0-47.0) 01/22/22 10:14 MCV 90.2 fL (80.0-100.0) 01/22/22 10:14 MCH 29.6 pg (27.0-34.0) 01/22/22 10:14 MCHC 32.8 g/dL (33.0-35.0) L 01/22/22 10:14 RDW 15.5 % (11.6-16.5) 01/22/22 10:14 Plt Count 443 X10^3/uL (150.0-450.0) 01/22/22 10:14 MPV 8.4 fL (7.4-11.0) 01/22/22 10:14 Neut % (Auto) 89.4 % (42.0-75.0) H 01/22/22 10:14 Lymph % (Auto) 6.7 % (21.0-51.0) L 01/22/22 10:14 [place] % (Auto) 3.7 % (0.0-13.0) 01/22/22 10:14 Eos % (Auto) 0.0 % (0.9-2.9) L 01/22/22 10:14 Baso % (Auto) 0.2 % (0.2-1.0) 01/22/22 10:14 Neut # (Auto) 13.7 x10^3/uL (2.2-4.8) H 01/22/22 10:14 Lymph # (Auto) 1.0 X10^3/uL (1.3-2.9) L 01/22/22 10:14 [place] # (Auto) 0.6 x10^3/uL (0.3-0.8) 01/22/22 10:14 Eos # (Auto) 0.0 x10^3/uL (0.0-0.2) 01/22/22 10:14 Baso # (Auto) 0.0 X10^3/uL (0.0-0.1) 01/22/22 10:14 Absolute Nucleated RBC 0.0 /100WBC 01/22/22 10:14 Sample Site Rra 01/22/22 11:10 ABG pH 7.110 (7.35-7.45) L* 01/22/22 11:10 ABG pCO2 11.0 mmHg (35.0-45.0) L* 01/22/22 11:10 ABG pO2 144.0 mmHg (80.0-100.0) H 01/22/22 11:10 ABG HCO3 3.5 mmol/L (22-26) L* 01/22/22 11:10 ABG O2 Saturation 98.0 % (90-100) 01/22/22 11:10 ABG Base Excess -23.7 mmol/L (-2.0-2.0) L 01/22/22 11:10 Yared Test Pos 01/22/22 11:10 A-a Gradient -8.0 mmHg 01/22/22 11:10 FiO2 21.0 01/22/22 11:10 Blood Gas Comments 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 01/22/22 11:10 Sodium 127 mmol/L (136-145) L 01/22/22 10:14 Corrected Sodium 138 mmol/L (136-145) 01/22/22 10:14 Potassium 4.6 mmol/L (3.5-5.1) 01/22/22 10:14 Chloride 89 mmol/L (98-107) L 01/22/22 10:14 Carbon Dioxide 8.0 mmol/L (21-32) L* 01/22/22 10:14 BUN 15 mg/dL (7-18) 01/22/22 10:14 Creatinine 1.64 mg/dL (0.55-1.02) H 01/22/22 10:14 Est GFR (MDRD) Af Amer 43 (>60) L 01/22/22 10:14 Est GFR (MDRD) Non-Af 36 (>60) L 01/22/22 10:14 Glucose 561 mg/dL (65-99) H* 01/22/22 10:14 Calcium 9.2 mg/dL (8.5-10.1) 01/22/22 10:14 Corrected Calcium TNP 01/22/22 10:14 Total Bilirubin 0.70 mg/dL (0.2-1.0) 01/22/22 10:14 AST 12 Units/L (15-37) L 01/22/22 10:14 ALT 17 Units/L (12-78) 01/22/22 10:14 Alkaline Phosphatase 123 Units/L (46-116) H 01/22/22 10:14 Creatine Kinase 18 Units/L (26-192) L 01/22/22 10:14 CK-MB (CK-2) < 1.0 ng/mL (0-4.0) 01/22/22 10:14 CK/CKMB % Calc 5.6 % (<4) 01/22/22 10:14 Troponin I High Sens 14.3 ng/L (4.0-60.0) 01/22/22 10:14 Total Protein 7.6 g/dL (6.4-8.2) 01/22/22 10:14 Albumin 3.6 g/dL (3.4-5.0) 01/22/22 10:14 Globulin 4.0 g/dL (2.5-4.5) 01/22/22 10:14 Albumin/Globulin Ratio 0.9 Ratio (1.1-2.1) L 01/22/22 10:14 Lipase 66 Units/L (73-393) L 01/22/22 10:14 Specimen Type Catherized urine 01/22/22 12:54 Urine Color Yellow (YELLOW) 01/22/22 12:54 Urine Appearance Slightly hazy (CLEAR) 01/22/22 12:54 Urine pH 5.0 (5.0 - 8.0) 01/22/22 12:54 Ur Specific [place] 1.020 (1.000-1.030) 01/22/22 12:54 Urine Protein 2+ (NEGATIVE) 01/22/22 12:54 Urine Glucose (UA) 4+ (NEGATIVE) 01/22/22 12:54 Urine Ketones 4+ (NEGATIVE) 01/22/22 12:54 Urine Blood 1+ (NEGATIVE) 01/22/22 12:54 Urine Nitrite Negative (NEGATIVE) 01/22/22 12:54 Urine Bilirubin Negative (NEGATIVE) 01/22/22 12:54 Urine Urobilinogen 1+ (NORMAL) 01/22/22 12:54 Ur Leukocyte Esterase 1+ (NEGATIVE) 01/22/22 12:54 Urine RBC 3-5 /HPF (0-3) A 01/22/22 12:54 Urine WBC 5-10 /HPF (0-5) A 01/22/22 12:54 Ur Squamous Epith Cells Few /HPF (NEGATIVE) 01/22/22 12:54 Urine Bacteria Trace /HPF (NEGATIVE) 01/22/22 12:54 Urine Yeast Many /HPF (NEGATIVE) 01/22/22 12:54 Ur Culture Indicated? No/not indicated 01/22/22 12:54 Acetone, Semi-Quant Moderate (NEGATIVE) H 01/22/22 10:47 SARS CoV-2 RNA Rapid ARNOLD Negative (NEGATIVE) 01/22/22 13:11 Other Results Comments: see discussion in Course XRAY XRAY Interpreted by: Radiologist X-ray Results: no acute abnormalities EKG Rate: 109 [place]: Normal Rhythm: ST Block: None Hypertrophy: LAE ST: Nonsp Opioid Opioid Risk Tool Age (Zack box if 16-45): No History of Preadolescent Sexual Abuse: No Psychological Disease: Depression Total: 0 Total Score Risk Category: Low Risk Copyright: Bradley ALTMAN predicting aberrant behaviors Diagnosis Discharge Problem: Diabetic ketoacidosis Qualifiers: Diabetes mellitus type: type 1 Diabetes mellitus complication detail: without coma Qualified Code(s): E10.10 - Type 1 diabetes mellitus with ketoacidosis without coma ADDITIONAL NOTES Additional Notes Additional Notes: [facility], [place] care - 35 minutes. Time spent evaluating pt, initial w/u, reviewing past records, ordering IV fluids, meds, interpreting labs, ordering additional labs, meds, fluids, and discussion with her attending.
[2022-01-22] MEDS ORDERED: MORPHINE SULFATE INJ 4 MG IVP ONE (09:58)
[2022-01-22] MEDS ORDERED: NS 1,000 ML IV 1,000 ML IV ONE ×2 (09:58→12:06)
[2022-01-22] MEDS ORDERED: ZOFRAN INJ 4 MG VIAL IVP ONE (09:58)
[2022-01-22] MEDS ORDERED: NS 1,000 ML IV 1,000 ML ONE ×2 (10:01→12:19)
[2022-01-22] MEDS ORDERED: MORPHINE SULFATE INJ 4 MG ONE (10:02)
[2022-01-22] MEDS ORDERED: ZOFRAN INJ 4 MG VIAL ONE (10:03)
[2022-01-22 10:20] LABS: BASOPHILS % (AUTO) 0.2 % (0.2-1.0); HEMATOCRIT 43.3 % (36.0-47.0); HEMOGLOBIN 14.2 g/dL (12.0-16.0); LYMPHOCYTES % (AUTO) 6.7 % (21.0-51.0); MEAN CORPUSCULAR HEMOGLOBIN 29.6 pg (27.0-34.0); MEAN CORPUSCULAR HGB CONC 32.8 g/dL (33.0-35.0); MEAN CORPUSCULAR VOLUME 90.2 fL (80.0-100.0); MEAN PLATELET VOLUME 8.4 fL (7.4-11.0); MONOCYTES # (AUTO) 0.6 x10^3/uL (0.3-0.8); MONOCYTES % (AUTO) 3.7 % (0.0-13.0); NEUTROPHILS # (AUTO) 13.7 x10^3/uL (2.2-4.8); NEUTROPHILS % (AUTO) 89.4 % (42.0-75.0); RED CELL DISTRIBUTION WIDTH 15.5 % (11.6-16.5); WHITE BLOOD COUNT 15.3 X10^3/uL (3.6-10.0)
[2022-01-22 10:42] LABS: ALANINE AMINOTRANSFERASE 17 Units/L (12-78); ALBUMIN 3.6 g/dL (3.4-5.0); ALKALINE PHOSPHATASE 123 Units/L (46-116); ASPARTATE AMINO TRANSFERASE 12 Units/L (15-37); BLOOD UREA NITROGEN 15 mg/dL (7-18); CALCIUM 9.2 mg/dL (8.5-10.1); CHLORIDE 89 mmol/L (98-107); CKMB % 5.6 % (<4); CREATINE KINASE 18 Units/L (26-192); CREATINE KINASE MB < 1.0 ng/mL (0-4.0); CREATININE 1.64 mg/dL (0.55-1.02); LIPASE 66 Units/L (73-393); SODIUM 127 mmol/L (136-145); TOTAL PROTEIN 7.6 g/dL (6.4-8.2); eGFR NON BLACK RACES 36 (>60)
[2022-01-22 10:46] LABS: COR NA(FOR HYPERGLY) 138 mmol/L (136-145)
[2022-01-22] MEDS ORDERED: NovoLIN R (or HumuLIN R) IV ONE (11:09)
[2022-01-22 11:13] LABS: ABG BASE EXCESS -23.7 mmol/L (-2.0-2.0)
[2022-01-22 11:15] LABS: ABG ALLEN TEST POS; ABG HCO3 3.5 mmol/L (22-26)
[2022-01-22] MEDS ORDERED: NovoLIN R (or HumuLIN R) ONE ×2 (11:36→11:42)
[2022-01-22] MEDS ORDERED: SODIUM BICARBONATE 8.4% INJ ADULT IVP ONE (12:06)
--- NOTE | 2022-01-22 12:11 | CT ---
HISTORYupper abd pain, N/V.STUDYABDOMEN/PELVIS W/O CONCOMPARISONCT abdomen and pelvis 01/17/2022.TECHNIQUEMultiple axial images of the abdomen and pelvis were obtained from the lung bases to the pubic symphysis without the administration of IV contrast. Dose reduction techniques including Automated Exposure Control (AEC) and adjustment of mA and kV were utilized.FINDINGSLack of contrast limits evaluation.Moderate motion artifact limits evaluation. Lung bases appear grossly clear. The heart is normal in size. Status post cholecystectomy. The liver demonstrates hepatic steatosis. The spleen, pancreas, adrenal glands, and kidneys appear benign within limits the study. Urinary bladder has nondependent gas image 88 series 3. Status post hysterectomy. Diverticulosis of the colon without evidence of diverticulitis. The appendix appears normal. Negative for bowel obstruction. Non-atherosclerotic normal caliber abdominal aorta. No pathologic adenopathy. No free air, free fluid or collection. There is skin thickening in the anterior body wall such as right lower quadrant image 51 series 3. Collection versus hematoma in the left anterior body wall measures 2.8 x 2.3 cm axial and 2.3 cm craniocaudal. Previously this area measured 2.9 x 2.1 cm axial and up to 3.6 cm craniocaudal. No acute osseous abnormality. Diastasis recti with moderate ventral upper abdominal fat containing hernia.IMPRESSIONLimited study. Hepatic steatosis. Diverticulosis of the colon without evidence of diverticulitis.Mild decrease in the size of previously described collection versus hematoma in the left anterior body wall. Skin thickening at the anterior body wall suggests cellulitis.Nondependent gas the urinary bladder consistent with cystitis in the absence of recent instrumentation.Electronically signed by: Lang Conner (Jan 22, 2022 12:11:19)
--- NOTE | 2022-01-22 12:16 | RAD ---
HISTORYDYSPNEA, EPIGASTRIC PAIN Relevant Clinical InformationSTUDYCHEST, 1 VIEWCOMPARISON01/17/22.FINDINGSThe trachea is midline. The cardiac silhouette is unremarkable. The lungs are clear without focal infiltrate, pneumothorax, or effusion. The bony thorax is unremarkable.IMPRESSIONNo acute cardiopulmonary findings .Electronically signed by: MARY NAVAS (Jan 22, 2022 12:15:49)
[2022-01-22] MEDS ORDERED: SODIUM BICARBONATE 8.4% INJ ADULT ONE (12:19)
[2022-01-22 13:17] LABS: BILIRUBIN,URINE NEGATIVE (NEGATIVE); BLOOD/HEMOGLOBIN,URINE 1+ (NEGATIVE); GLUCOSE, URINE 4+ (NEGATIVE); KETONES,URINE 4+ (NEGATIVE); LEUKOCYTE ESTERASE ,URINE 1+ (NEGATIVE); NITRITES,URINE NEGATIVE (NEGATIVE); PROTEIN,URINE 2+ (NEGATIVE); UROBILINOGEN,URINE 1+ (NORMAL)
[2022-01-22 13:22] LABS: APPEARANCE,URINE SLIGHTLY HAZY (CLEAR); COLOR,URINE YELLOW (YELLOW)
[2022-01-22 13:23] LABS: BACTERIA,URINE TRACE /HPF (NEGATIVE); SQUAMOUS EPITHELIAL CELL,UR FEW /HPF (NEGATIVE); YEAST,URINE MANY /HPF (NEGATIVE)
[2022-01-22] MEDS ORDERED: MYXREDLIN 100 UNIT/100 ML BAG 100 UNIT/100 ML PLAST..BAG IV ONE (13:24)
[2022-01-22] MEDS: MYXREDLIN 100 UNIT/100 ML BAG 100 UNIT/100 ML PLAST..BAG IV PRN ×2 (13:59→16:28)
[2022-01-22] MEDS ORDERED: MYXREDLIN 100 UNIT/100 ML BAG 100 UNIT/100 ML PLAST..BAG IV PRN (14:33)
[2022-01-22] MEDS ORDERED: D50W ABBOJECT SYR IV PRN (14:33)
[2022-01-22] MEDS: NEURONTIN CAP 300 MG PO SCH (14:57)
[2022-01-22] MEDS: NS 1,000 ML IV 1,000 ML IV SCH (15:40)
[2022-01-22] MEDS: SNACK - Diabetic Appropriate PO SCH (20:15)
[2022-01-22] MEDS: ZOFRAN INJ 4 MG VIAL IVP PRN (21:40)
[2022-01-22 22:34] LABS: ABG BASE EXCESS -17.9 mmol/L (-2.0-2.0)
[2022-01-22 22:35] LABS: ABG ALLEN TEST POS
[2022-01-22 22:47] LABS: CALCIUM 8.4 mg/dL (8.5-10.1); CREATININE 1.28 mg/dL (0.55-1.02); MAGNESIUM 1.5 mg/dL (1.7-2.9)
[2022-01-22 22:50] LABS: CARBON DIOXIDE 7.6 mmol/L (21-32)
[2022-01-22] MEDS: MAGNESIUM SULFATE 1 GRAM/100 mL PREMIX 1 G/100 ML BAG IV PRN (23:35)
[2022-01-23] MEDS ORDERED: MORPHINE SULFATE INJ 2 MG INJ IVP PRN (00:07)
[2022-01-23] MEDS: NS 1,000 ML IV 1,000 ML IV SCH (00:09)
[2022-01-23] MEDS: PriLOSEC PO SCH ×3 (00:10→21:41)
[2022-01-23] MEDS: NEURONTIN CAP 300 MG PO SCH ×4 (00:10→21:42)
[2022-01-23] MEDS: NS + KCL 20 MEQ/L 1,000 ML IV SCH ×4 (00:45→18:32)
[2022-01-23 02:34] LABS: CALCIUM 8.1 mg/dL (8.5-10.1); CREATININE 1.25 mg/dL (0.55-1.02)
[2022-01-23 06:37] LABS: BASOPHILS # (AUTO) 0.1 X10^3/uL (0.0-0.1); BASOPHILS % (AUTO) 0.4 % (0.2-1.0); EOSINOPHILS % (AUTO) 0.1 % (0.9-2.9); HEMATOCRIT 41.3 % (36.0-47.0); HEMOGLOBIN 13.5 g/dL (12.0-16.0); LYMPHOCYTES # (AUTO) 3.2 X10^3/uL (1.3-2.9); LYMPHOCYTES % (AUTO) 14.9 % (21.0-51.0); MEAN CORPUSCULAR HEMOGLOBIN 28.8 pg (27.0-34.0); MEAN CORPUSCULAR HGB CONC 32.6 g/dL (33.0-35.0); MEAN CORPUSCULAR VOLUME 88.3 fL (80.0-100.0); MEAN PLATELET VOLUME 8.2 fL (7.4-11.0); MONOCYTES # (AUTO) 1.5 x10^3/uL (0.3-0.8); MONOCYTES % (AUTO) 6.9 % (0.0-13.0); NEUTROPHILS # (AUTO) 16.8 x10^3/uL (2.2-4.8); NEUTROPHILS % (AUTO) 77.7 % (42.0-75.0); RED BLOOD COUNT 4.67 X10^6/uL (3.5-5.4); RED CELL DISTRIBUTION WIDTH 15.4 % (11.6-16.5); WHITE BLOOD COUNT 21.6 X10^3/uL (3.6-10.0)
[2022-01-23 07:15] LABS: BAND NEUTROPHILS % 2 % (0-10); METAMYELOCYTES % 1; PLATELET MORPHOLOGY COMMENT NORMAL (NORMAL)
[2022-01-23 07:16] LABS: ALBUMIN 3.2 g/dL (3.4-5.0); CALCIUM 8.8 mg/dL (8.5-10.1); COR CA(FOR HYPOALB) 9.4 mg/dL (8.5-10.1); CREATININE 1.24 mg/dL (0.55-1.02); MAGNESIUM 1.8 mg/dL (1.7-2.9); TOTAL PROTEIN 7.1 g/dL (6.4-8.2)
[2022-01-23 07:20] LABS: CARBON DIOXIDE 11.2 mmol/L (21-32)
[2022-01-23 07:46] LABS: ABG BASE EXCESS -16.4 mmol/L (-2.0-2.0)
[2022-01-23 07:47] LABS: ABG ALLEN TEST POS; ABG HCO3 8.8 mmol/L (22-26)
[2022-01-23] MEDS ORDERED: NovoLIN R (or HumuLIN R) IV ONE ×4 (07:51→18:12)
[2022-01-23] MEDS ORDERED: NovoLIN R (or HumuLIN R) ONE (07:55)
[2022-01-23] MEDS: ROCEPHIN VIAL 1 GRAM 1 G in NS 100 ML IV 100 ML IV SCH ×2 (08:15→08:32)
[2022-01-23] MEDS: ESTRACE PO SCH (08:17)
[2022-01-23] MEDS: MYXREDLIN 100 UNIT/100 ML BAG 100 UNIT/100 ML PLAST..BAG IV PRN (08:18)
[2022-01-23] MEDS: ZOFRAN INJ 4 MG VIAL IVP PRN (08:19)
[2022-01-23] MEDS ORDERED: NovoLIN N or HumuLIN N SC SCH (10:00)
[2022-01-23 11:06] LABS: BLOOD UREA NITROGEN 9 mg/dL (7-18); CALCIUM 8.3 mg/dL (8.5-10.1); CHLORIDE 104 mmol/L (98-107); CREATININE 1.08 mg/dL (0.55-1.02); SODIUM 135 mmol/L (136-145); eGFR NON BLACK RACES 58 (>60)
[2022-01-23 11:08] LABS: CARBON DIOXIDE 13.5 mmol/L (21-32)
[2022-01-23] MEDS: VORICONAZOLE 600 MG in NS 250 ML IV 250 ML IV SCH ×2 (11:21→21:42)
[2022-01-23 11:38] VITALS: BMI 36.4
[2022-01-23] MEDS: NovoLIN R (or HumuLIN R) SUBCUT PRN ×5 (11:38→23:30)
[2022-01-23 16:17] LABS: BLOOD UREA NITROGEN 8 mg/dL (7-18); CALCIUM 8.3 mg/dL (8.5-10.1); CHLORIDE 101 mmol/L (98-107); COR NA(FOR HYPERGLY) 138 mmol/L (136-145); CREATININE 1.19 mg/dL (0.55-1.02); SODIUM 134 mmol/L (136-145); eGFR NON BLACK RACES 52 (>60)
[2022-01-23 16:27] LABS: CARBON DIOXIDE 9.9 mmol/L (21-32)
[2022-01-23 17:32] LABS: ALANINE AMINOTRANSFERASE 17 Units/L (12-78); ALKALINE PHOSPHATASE 107 Units/L (46-116); ASPARTATE AMINO TRANSFERASE 12 Units/L (15-37); BLOOD UREA NITROGEN 7 mg/dL (7-18); CALCIUM 8.3 mg/dL (8.5-10.1); CHLORIDE 101 mmol/L (98-107); COR CA(FOR HYPOALB) 9.1 mg/dL (8.5-10.1); COR NA(FOR HYPERGLY) 136 mmol/L (136-145); CREATININE 1.17 mg/dL (0.55-1.02); SODIUM 133 mmol/L (136-145); TOTAL PROTEIN 6.8 g/dL (6.4-8.2); eGFR NON BLACK RACES 53 (>60)
[2022-01-23 17:36] LABS: CARBON DIOXIDE 11.6 mmol/L (21-32)
[2022-01-23] MEDS ORDERED: MYXREDLIN 100 UNIT/100 ML BAG 100 UNIT/100 ML PLAST..BAG IV PRN (18:02)
[2022-01-23] MEDS: D5W 1,000 ML IV 1,000 ML IV SCH (18:32)
[2022-01-23] MEDS ORDERED: SNACK - Diabetic Appropriate PO SCH (20:00)
[2022-01-23] MEDS: LANTUS SC SCH (21:41)
[2022-01-23] MEDS: SNACK - Diabetic Appropriate PO SCH (21:49)
[2022-01-24] MEDS: NovoLIN R (or HumuLIN R) SUBCUT PRN ×4 (01:20→20:45)
[2022-01-24] MEDS: NS + KCL 20 MEQ/L 1,000 ML IV SCH ×3 (05:04→14:39)
[2022-01-24 06:04] LABS: ABG ALLEN TEST POS; ABG BASE EXCESS -3.2 mmol/L (-2.0-2.0); ABG HCO3 21.2 mmol/L (22-26)
[2022-01-24 06:14] LABS: BASOPHILS # (AUTO) 0.1 X10^3/uL (0.0-0.1); BASOPHILS % (AUTO) 0.4 % (0.2-1.0); EOSINOPHILS # (AUTO) 0.1 x10^3/uL (0.0-0.2); HEMATOCRIT 34.4 % (36.0-47.0); HEMOGLOBIN 11.6 g/dL (12.0-16.0); LYMPHOCYTES # (AUTO) 2.8 X10^3/uL (1.3-2.9); LYMPHOCYTES % (AUTO) 19.9 % (21.0-51.0); MEAN CORPUSCULAR HEMOGLOBIN 29.1 pg (27.0-34.0); MEAN CORPUSCULAR HGB CONC 33.8 g/dL (33.0-35.0); MEAN CORPUSCULAR VOLUME 86.1 fL (80.0-100.0); MEAN PLATELET VOLUME 8.4 fL (7.4-11.0); MONOCYTES # (AUTO) 1.1 x10^3/uL (0.3-0.8); MONOCYTES % (AUTO) 8.1 % (0.0-13.0); NEUTROPHILS # (AUTO) 9.9 x10^3/uL (2.2-4.8); NEUTROPHILS % (AUTO) 70.6 % (42.0-75.0); RED BLOOD COUNT 3.99 X10^6/uL (3.5-5.4); RED CELL DISTRIBUTION WIDTH 15.1 % (11.6-16.5)
[2022-01-24 06:35] LABS: ALANINE AMINOTRANSFERASE 12 Units/L (12-78); ALBUMIN 2.6 g/dL (3.4-5.0); ALKALINE PHOSPHATASE 91 Units/L (46-116); ASPARTATE AMINO TRANSFERASE 11 Units/L (15-37); BLOOD UREA NITROGEN 4 mg/dL (7-18); CALCIUM 8.4 mg/dL (8.5-10.1); CARBON DIOXIDE 20.8 mmol/L (21-32); CHLORIDE 105 mmol/L (98-107); COR CA(FOR HYPOALB) 9.5 mg/dL (8.5-10.1); COR NA(FOR HYPERGLY) 138 mmol/L (136-145); CREATININE 1.06 mg/dL (0.55-1.02); SODIUM 136 mmol/L (136-145); TOTAL PROTEIN 5.7 g/dL (6.4-8.2); eGFR NON BLACK RACES 59 (>60)
[2022-01-24] MEDS: NEURONTIN CAP 300 MG PO SCH ×3 (06:36→21:10)
[2022-01-24] MEDS: SYNTHROID 100 mcg TAB PO SCH (06:36)
[2022-01-24] MEDS ORDERED: NovoLIN R (or HumuLIN R) IV ONE (07:10)
[2022-01-24] MEDS: ROCEPHIN VIAL 1 GRAM 1 G in NS 100 ML IV 100 ML IV SCH (09:16)
[2022-01-24] MEDS: PriLOSEC PO SCH ×2 (09:17→20:46)
[2022-01-24] MEDS: ESTRACE PO SCH (09:17)
[2022-01-24] MEDS: D5W 1,000 ML IV 1,000 ML IV SCH (09:17)
[2022-01-24] MEDS ORDERED: K-DUR TAB 20 MEQ PO PRN (09:18)
[2022-01-24] MEDS ORDERED: POTASSIUM CHL 60 MEQ/NS 0.45% 500 ML IV PRN (09:18)
[2022-01-24] MEDS ORDERED: KLOR-CON PO PRN (09:18)
[2022-01-24] MEDS ORDERED: MICRO K EXTEN CAP 10 MEQ PO PRN (09:18)
[2022-01-24] MEDS ORDERED: POTASSIUM CHLORIDE LIQ 20 MEQ UDC PO PRN (09:18)
[2022-01-24] MEDS ORDERED: K-RIDER 10 MEQ/NS 100 ML 10 MEQ/100 ML BAG IV PRN (09:18)
[2022-01-24] MEDS ORDERED: POTASSIUM CHL 40 MEQ/NS 0.45% 500 ML IV PRN (09:18)
[2022-01-24] MEDS: VORICONAZOLE 400 MG in NS 100 ML IV 100 ML IV SCH ×2 (10:24→20:57)
[2022-01-24] MEDS: MAGNESIUM SULFATE 1 GRAM/100 mL PREMIX 1 G/100 ML BAG IV PRN ×4 (14:34→17:27)
[2022-01-24] MEDS ORDERED: MAALOX or MYLANTA PO PRN (16:32)
[2022-01-24] MEDS: SNACK - Diabetic Appropriate PO SCH (20:38)
[2022-01-24] MEDS: LANTUS SC SCH (20:45)
[2022-01-24] MEDS ORDERED: RESTORIL CAP 15 MG PO PRN (23:22)
[2022-01-25] MEDS: NS + KCL 20 MEQ/L 1,000 ML IV SCH ×2 (05:56→06:18)
[2022-01-25] MEDS: NEURONTIN CAP 300 MG PO SCH (06:20)
[2022-01-25] MEDS: SYNTHROID 100 mcg TAB PO SCH (06:21)
[2022-01-25 06:48] LABS: BASOPHILS # (AUTO) 0.1 X10^3/uL (0.0-0.1); BASOPHILS % (AUTO) 1.3 % (0.2-1.0); EOSINOPHILS # (AUTO) 0.2 x10^3/uL (0.0-0.2); HEMATOCRIT 37.1 % (36.0-47.0); HEMOGLOBIN 12.8 g/dL (12.0-16.0); LYMPHOCYTES # (AUTO) 3.1 X10^3/uL (1.3-2.9); LYMPHOCYTES % (AUTO) 35.4 % (21.0-51.0); MEAN CORPUSCULAR HEMOGLOBIN 29.6 pg (27.0-34.0); MEAN CORPUSCULAR HGB CONC 34.6 g/dL (33.0-35.0); MEAN CORPUSCULAR VOLUME 85.5 fL (80.0-100.0); MEAN PLATELET VOLUME 7.9 fL (7.4-11.0); MONOCYTES # (AUTO) 0.9 x10^3/uL (0.3-0.8); MONOCYTES % (AUTO) 10.5 % (0.0-13.0); NEUTROPHILS # (AUTO) 4.4 x10^3/uL (2.2-4.8); NEUTROPHILS % (AUTO) 50.8 % (42.0-75.0); RED BLOOD COUNT 4.34 X10^6/uL (3.5-5.4); RED CELL DISTRIBUTION WIDTH 15.4 % (11.6-16.5); WHITE BLOOD COUNT 8.7 X10^3/uL (3.6-10.0)
[2022-01-25 07:26] LABS: ALANINE AMINOTRANSFERASE 10 Units/L (12-78); ALBUMIN 2.5 g/dL (3.4-5.0); ALKALINE PHOSPHATASE 102 Units/L (46-116); ASPARTATE AMINO TRANSFERASE 12 Units/L (15-37); BLOOD UREA NITROGEN 2 mg/dL (7-18); CALCIUM 8.2 mg/dL (8.5-10.1); CARBON DIOXIDE 26.8 mmol/L (21-32); CHLORIDE 108 mmol/L (98-107); COR CA(FOR HYPOALB) 9.4 mg/dL (8.5-10.1); COR NA(FOR HYPERGLY) 141 mmol/L (136-145); CREATININE 0.85 mg/dL (0.55-1.02); SODIUM 141 mmol/L (136-145); TOTAL PROTEIN 5.9 g/dL (6.4-8.2); eGFR NON BLACK RACES > 60 (>60)
[2022-01-25] MEDS: ESTRACE PO SCH (08:42)
[2022-01-25] MEDS: PriLOSEC PO SCH (08:42)
[2022-01-25] MEDS: ROCEPHIN VIAL 1 GRAM 1 G in NS 100 ML IV 100 ML IV SCH (08:43)
[2022-01-25] MEDS: VORICONAZOLE 400 MG in NS 100 ML IV 100 ML IV SCH (10:43)
[2022-01-25] MEDS: NovoLIN R (or HumuLIN R) SUBCUT PRN (11:26)
[2022-01-25 13:04] VITALS: BP 155/72
== END 2022-01-25 13:15 | disposition home or self-care (01) | DRG 638 ==
LOC: ER 09:38 → ICU 13:16
PROVIDERS: ADMIT Obstetrics & Gynecology Obstetrics; ATTEND Obstetrics & Gynecology Obstetrics
DX: E87.1 Hypo-osmolality and hyponatremia; E10.10 Type 1 diabetes mellitus with ketoacidosis without coma; E03.8 Other specified hypothyroidism; R06.02 Shortness of breath; E87.5 Hyperkalemia; R11.2 Nausea with vomiting, unspecified; R41.82 Altered mental status, unspecified; Z20.822 Contact with and (suspected) exposure to COVID-19; R10.84 Generalized abdominal pain; R94.31 Abnormal electrocardiogram [ECG] [EKG]

== ENCOUNTER 2022-09-09 08:34 | Inpatient (IN) ==
[2022-09-09] MEDS ORDERED: ZOFRAN INJ 4 MG VIAL ONE ×2 (08:38→09:48)
[2022-09-09 08:48] VITALS: BMI 37.0
[2022-09-09] MEDS ORDERED: NS 1,000 ML IV 1,000 ML IV ONE ×2 (08:51→09:37)
[2022-09-09] MEDS ORDERED: ZOFRAN INJ 4 MG VIAL IVP ONE ×2 (08:51→09:49)
--- NOTE | 2022-09-09 08:51 | DR.HYPOGLY ---
HPI Time Seen Time Seen by Provider: 09/09/22 08:51 PCP Primary Care Physician: CADENA Complaint Chief Complaint:: PT C/O CHEST PAIN AND BACK PAIN STARTING "LAST NIGHT"; PT STARTED HAVING N/V THIS MORNING. PT INDICATES PAIN IS "ALL OVER" AND RADIATES UP LEFT SIDE OF NECK AND HER "FACE FEELS NUMB". 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 Surgery, Hysterectomy, Tonsillectomy and Other Family History History of Family Medical Conditions: Yes Family Medical History: Diabetes Mellitus, Cancer and Heart Failure Social History Does patient currently use any type of tobacco product: Yes Have you used tobacco products in the last 12 months: Yes Type of Tobacco Use: Cigarettes Does any household member use tobacco: Yes Alcohol Use: None Do you use any recreational Drugs:: No Lives With: Family Lives Where: Home Travel Risk Coronavirus risk:travel/contact w/high risk person: No Has patient experienced Coronavirus symptoms: No Infectious screening In the last 2 months have you had wt loss of >10#?: NO Have you had fever, night sweats or hemotysis?: No Have you traveled outside the country in the last 6 months?: No Isolation: Standard PE Vital Signs Vitals: Temperature 97.6 F Pulse Rate 116 Respiratory Rate 18 Blood Pressure [Left Arm] 138/78 Blood Pressure 153/67 O2 Sat by Pulse Oximetry 100 ROR Labs Reviewed Result Diagrams: 09/09/22 09:08 09/09/22 11:15 Laboratory: WBC 18.3 X10^3/uL (3.6-10.0) H 09/09/22 09:08 RBC 4.83 X10^6/uL (3.5-5.4) 09/09/22 09:08 Hgb 14.6 g/dL (12.0-16.0) 09/09/22 09:08 Hct 44.1 % (36.0-47.0) 09/09/22 09:08 MCV 91.3 fL (80.0-100.0) 09/09/22 09:08 MCH 30.2 pg (27.0-34.0) 09/09/22 09:08 MCHC 33.1 g/dL (33.0-35.0) 09/09/22 09:08 RDW 14.5 % (11.6-16.5) 09/09/22 09:08 Plt Count 361 X10^3/uL (150.0-450.0) 09/09/22 09:08 MPV 9.2 fL (7.4-11.0) 09/09/22 09:08 Neut % (Auto) 79.9 % (42.0-75.0) H 09/09/22 09:08 Lymph % (Auto) 10.9 % (21.0-51.0) L 09/09/22 09:08 [place] % (Auto) 3.9 % (0.0-13.0) 09/09/22 09:08 Eos % (Auto) 0.8 % (0.9-2.9) L 09/09/22 09:08 Baso % (Auto) 4.5 % (0.2-1.0) H 09/09/22 09:08 Neut # (Auto) 14.6 x10^3/uL (2.2-4.8) H 09/09/22 09:08 Lymph # (Auto) 2.0 X10^3/uL (1.3-2.9) 09/09/22 09:08 [place] # (Auto) 0.7 x10^3/uL (0.3-0.8) 09/09/22 09:08 Eos # (Auto) 0.1 x10^3/uL (0.0-0.2) 09/09/22 09:08 Baso # (Auto) 0.8 X10^3/uL (0.0-0.1) H 09/09/22 09:08 Absolute Nucleated RBC 0.0 /100WBC 09/09/22 09:08 Sample Site Rrad 09/09/22 09:55 ABG pH 7.200 (7.35-7.45) L 09/09/22 09:55 ABG pCO2 25.0 mmHg (35.0-45.0) L 09/09/22 09:55 ABG pO2 148.0 mmHg (80.0-100.0) H 09/09/22 09:55 ABG HCO3 9.8 mmol/L (22-26) L* 09/09/22 09:55 ABG O2 Saturation 99.0 % (90-100) 09/09/22 09:55 ABG Base Excess -16.6 mmol/L (-2.0-2.0) L 09/09/22 09:55 Yared Test Pos 09/09/22 09:55 A-a Gradient -30.0 mmHg 09/09/22 09:55 FiO2 21.0 09/09/22 09:55 Blood Gas Comments Polly well ms/ej 09/09/22 09:55 Sodium 131 mmol/L (136-145) L 09/09/22 09:08 Corrected Sodium 145 mmol/L (136-145) 09/09/22 09:08 Potassium 5.4 mmol/L (3.5-5.1) H 09/09/22 09:08 Chloride 93 mmol/L (98-107) L 09/09/22 09:08 Carbon Dioxide 13.3 mmol/L (21-32) L* 09/09/22 09:08 BUN 18 mg/dL (7-18) 09/09/22 09:08 Creatinine 1.33 mg/dL (0.55-1.02) H 09/09/22 09:08 Est GFR (MDRD) Af Amer 55 (>60) L 09/09/22 09:08 Est GFR (MDRD) Non-Af 45 (>60) L 09/09/22 09:08 Glucose 687 mg/dL (65-99) H* 09/09/22 11:15 POC Glucose (mg/dL) > 600 mg/dL (65-99) 09/09/22 11:06 Hemoglobin A1c 10.0 % 09/09/22 09:06 Calcium 9.6 mg/dL (8.5-10.1) 09/09/22 09:08 Corrected Calcium TNP 09/09/22 09:08 Phosphorus 4.7 mg/dL (2.6-4.7) 09/09/22 09:06 Magnesium 1.6 mg/dL (2.0-2.9) L 09/09/22 09:06 Total Bilirubin 0.50 mg/dL (0.2-1.0) 09/09/22 09:08 AST 15 Units/L (15-37) 09/09/22 09:08 ALT 10 Units/L (12-78) L 09/09/22 09:08 Alkaline Phosphatase 111 Units/L (46-116) 09/09/22 09:08 Creatine Kinase 45 Units/L (26-192) 09/09/22 09:08 Troponin I High Sens 5.3 ng/L (4.0-60.0) 09/09/22 09:08 Total Protein 7.4 g/dL (6.4-8.2) 09/09/22 09:08 Albumin 3.6 g/dL (3.4-5.0) 09/09/22 09:08 Globulin 3.8 g/dL (2.5-4.5) 09/09/22 09:08 Albumin/Globulin Ratio 0.9 Ratio (1.1-2.1) L 09/09/22 09:08 Amylase 18 Units/L (25-115) L 09/09/22 09:06 Lipase 66 Units/L (73-393) L 09/09/22 09:06 Specimen Type Clean catch urine 09/09/22 09:16 Urine Color Pale yellow (YELLOW) 09/09/22 09:16 Urine Appearance Clear (CLEAR) 09/09/22 09:16 Urine pH 6.0 (5.0 - 8.0) 09/09/22 09:16 Ur Specific [place] 1.020 (1.000-1.030) 09/09/22 09:16 Urine Protein Negative (NEGATIVE) 09/09/22 09:16 Urine Glucose (UA) 4+ (NEGATIVE) 09/09/22 09:16 Urine Ketones 4+ (NEGATIVE) 09/09/22 09:16 Urine Blood Negative (NEGATIVE) 09/09/22 09:16 Urine Nitrite Negative (NEGATIVE) 09/09/22 09:16 Urine Bilirubin Negative (NEGATIVE) 09/09/22 09:16 Urine Urobilinogen Normal (NORMAL) 09/09/22 09:16 Ur Leukocyte Esterase Negative (NEGATIVE) 09/09/22 09:16 Acetone, Semi-Quant Moderate (NEGATIVE) H 09/09/22 09:08 Opioid Opioid Risk Tool Age (Zack box if 16-45): No History of Preadolescent Sexual Abuse: No Psychological Disease: Depression Total: 0 Total Score Risk Category: Low Risk Copyright: Bradley ALTMAN predicting aberrant behaviors Discharge Plan Discharge Plan Patient Disposition: 01 HOME, SELF-CARE Condition: Stable Prescriptions: No Action insulin glargine [Lantus U-100 Insulin] 100 unit/mL Solution 15 unit SUBCUT BID gabapentin 300 mg capsule 300 mg PO TID insulin lispro [Admelog U-100 Insulin lispro] 100 unit/mL Solution See Rx Instructions .ROUTE .COMPLEX Rx Instructions: 10 UNITS SQ IN THE MORNING AND 15 UNITS IN THE EVENING duloxetine 20 mg capsule,delayed release(DR/EC) 40 mg PO DAILY Health Concerns: Post Hospitalization: new medications and changes needed to prevent readmission or further decline. Pt educated and given instructions on all concerns. Plan of Treatment: Continue with present treatment and follow up plan. Pt is to keep follow up appointment as instructed and take medications as ordered. Orders to Discharge Patient Discharge Orders: Transfer (Routine); Ordered 09/09/22 Ordered By: TODD DIXON Follow ups/Referrals Follow ups/Referrals: DIANA CADENA [Primary Care Provider] - 3 days Instructions Stand Alone Forms: Precautions for COVID19, [facility], Patient Portal, Social Distancing
[2022-09-09] MEDS ORDERED: NS 1,000 ML IV 1,000 ML ONE ×3 (09:13→11:54)
[2022-09-09 09:18] LABS: BASOPHILS # (AUTO) 0.8 X10^3/uL (0.0-0.1); BASOPHILS % (AUTO) 4.5 % (0.2-1.0); EOSINOPHILS # (AUTO) 0.1 x10^3/uL (0.0-0.2); EOSINOPHILS % (AUTO) 0.8 % (0.9-2.9); HEMATOCRIT 44.1 % (36.0-47.0); HEMOGLOBIN 14.6 g/dL (12.0-16.0); LYMPHOCYTES % (AUTO) 10.9 % (21.0-51.0); MEAN CORPUSCULAR HEMOGLOBIN 30.2 pg (27.0-34.0); MEAN CORPUSCULAR HGB CONC 33.1 g/dL (33.0-35.0); MEAN CORPUSCULAR VOLUME 91.3 fL (80.0-100.0); MEAN PLATELET VOLUME 9.2 fL (7.4-11.0); MONOCYTES # (AUTO) 0.7 x10^3/uL (0.3-0.8); MONOCYTES % (AUTO) 3.9 % (0.0-13.0); NEUTROPHILS # (AUTO) 14.6 x10^3/uL (2.2-4.8); NEUTROPHILS % (AUTO) 79.9 % (42.0-75.0); RED BLOOD COUNT 4.83 X10^6/uL (3.5-5.4); RED CELL DISTRIBUTION WIDTH 14.5 % (11.6-16.5); WHITE BLOOD COUNT 18.3 X10^3/uL (3.6-10.0)
[2022-09-09 09:31] LABS: ALANINE AMINOTRANSFERASE 10 Units/L (12-78); ALBUMIN 3.6 g/dL (3.4-5.0); ALKALINE PHOSPHATASE 111 Units/L (46-116); ASPARTATE AMINO TRANSFERASE 15 Units/L (15-37); BLOOD UREA NITROGEN 18 mg/dL (7-18); CALCIUM 9.6 mg/dL (8.5-10.1); CHLORIDE 93 mmol/L (98-107); CREATININE 1.33 mg/dL (0.55-1.02); SODIUM 131 mmol/L (136-145); TOTAL PROTEIN 7.4 g/dL (6.4-8.2); eGFR NON BLACK RACES 45 (>60)
[2022-09-09 09:35] LABS: COR NA(FOR HYPERGLY) 145 mmol/L (136-145)
[2022-09-09 09:36] LABS: CARBON DIOXIDE 13.3 mmol/L (21-32)
[2022-09-09 09:48] LABS: BILIRUBIN,URINE NEGATIVE (NEGATIVE); BLOOD/HEMOGLOBIN,URINE NEGATIVE (NEGATIVE); GLUCOSE, URINE 4+ (NEGATIVE); KETONES,URINE 4+ (NEGATIVE); LEUKOCYTE ESTERASE ,URINE NEGATIVE (NEGATIVE); NITRITES,URINE NEGATIVE (NEGATIVE); PROTEIN,URINE NEGATIVE (NEGATIVE); UROBILINOGEN,URINE NORMAL (NORMAL)
[2022-09-09 09:51] LABS: APPEARANCE,URINE CLEAR (CLEAR); COLOR,URINE PALE YELLOW (YELLOW)
[2022-09-09 09:59] LABS: ABG BASE EXCESS -16.6 mmol/L (-2.0-2.0)
[2022-09-09 10:00] LABS: ABG ALLEN TEST POS; ABG HCO3 9.8 mmol/L (22-26)
--- NOTE | 2022-09-09 10:27 | RAD ---
HISTORYCHEST PAIN HYSTER, GB, CSECT, TONSILS, DM, HTNSTUDYCHEST, 1 VIEWCOMPARISONOctober 2021.FINDINGSThe trachea is midline. The cardiac silhouette is unremarkable. The lungs are clear without focal infiltrate or effusion. The bony thorax is unremarkable.IMPRESSIONNo acute cardiopulmonary findings .Electronically signed by: SYDNEY ELENA III (Sep 09, 2022 10:26:15)
[2022-09-09] MEDS ORDERED: SODIUM BICARBONATE 8.4% INJ ADULT IVP PRN (10:39)
[2022-09-09] MEDS ORDERED: D50W ABBOJECT SYR IV PRN (10:39)
[2022-09-09] MEDS ORDERED: MYXREDLIN 100 UNIT/100 ML BAG 100 UNIT/100 ML PLAST..BAG IV ONE (10:57)
[2022-09-09 11:00] LABS: MAGNESIUM 1.6 mg/dL (2.0-2.9); PHOSPHORUS 4.7 mg/dL (2.6-4.7)
--- NOTE | 2022-09-09 11:22 | CT ---
HISTORY: Headache.Study: CT brain without contrastComparison: None available.Technique: Multiple axial images of the brain were obtained from the skull base to the vertex [without] administration of IV contrast.Findings: [No acute intraparenchymal hemorrhage or cytotoxic edema is identified.] [No extra-axial fluid collections are seen.] [No alteration in the attenuation of the brain parenchyma can be identified to suggest acute or subacute ischemic change.] However, if the patients symptoms are clinically & neurologically concerning for an acute ischemic event, then MR imaging of the brain with DWI sequencing could be considered to exclude an acute CVA (based on this patient?s clinical presentation and the specific medical circumstances). If there remains strong concern for an intracranial neoplasm or mass, then follow-up with CT or MR imaging of the brain with IV contrast is recommended for improved inspection (which would be more sensitive for the assessment of any intracranial neoplasia). [The ventricular system is symmetric and nondilated.] [The extracranial structures are grossly unremarkable.] The visualized paranasal sinuses and mastoid air cells are relatively clear on this examination as well. The mastoids are relatively clear.IMPRESSION:1. No acute intracranial process identified.Electronically signed by: SYDNEY ELENA III (Sep 09, 2022 11:20:53)
--- NOTE | 2022-09-09 11:36 | CT ---
HISTORYvomitingConcern for renal stone.Exam: Non-contrast CT examination of the abdomen & pelvis.Technique: Multiple CT images of the abdomen and pelvis were obtained from the lung bases to the pubic symphysis without the IV administration of contrast. Of note, this CT exam was optimized for renal stone disease and some parenchymal organ abnormalities and vascular abnormalities/injuries cannot be excluded on the basis of this CT exam. Comparison is made to the prior abdominopelvic CT examination dated January 22, 2022.Findings:The lung bases are clear. The heart is normal in size without a pericardial effusion. There is a small to moderate-sized hiatal hernia. Noncontrast CT images of the liver, pancreas, spleen, adrenal glands, and kidneys are unremarkable in appearance. No free fluid or free air is seen. There is no evidence for acute colitis, diverticulitis, or acute appendicitis. The bladder is mildly distended but otherwise unremarkable. No other abdominopelvic changes the prior examination are seen. No acute fracture or destructive lytic bony lesion is identified. Status post prior cholecystectomy. No bowel obstruction seen.Impression: Small to moderate sized central hiatal hernia with internal fluid. Please correlate for GERD.Stable CT exam without acute abnormalities or other interval abdominopelvic changes seen.Electronically signed by: SYDNEY ELENA III (Sep 09, 2022 11:34:45)
[2022-09-09] MEDS ORDERED: ZOSYN VIAL 3.375 GRAMS 3.375 G in NS 100 ML IV 100 ML IV ONE (11:44)
[2022-09-09] MEDS: MYXREDLIN 100 UNIT/100 ML BAG 100 UNIT/100 ML PLAST..BAG IV PRN ×2 (11:50→21:49)
[2022-09-09] MEDS ORDERED: NovoLIN R (or HumuLIN R) ONE (11:52)
[2022-09-09] MEDS ORDERED: NovoLIN R (or HumuLIN R) IV ONE (11:52)
[2022-09-09] MEDS: NS 1,000 ML IV 1,000 ML IV SCH ×2 (12:09→21:47)
[2022-09-09 13:48] LABS: BLOOD UREA NITROGEN 18 mg/dL (7-18); CALCIUM 8.8 mg/dL (8.5-10.1); CHLORIDE 102 mmol/L (98-107); CREATININE 1.53 mg/dL (0.55-1.02); SODIUM 138 mmol/L (136-145); eGFR NON BLACK RACES 39 (>60)
[2022-09-09] MEDS ORDERED: NS + KCL 20 MEQ/L 1,000 ML IV SCH (14:00)
[2022-09-09 14:20] LABS: COR NA(FOR HYPERGLY) 148 mmol/L (136-145)
[2022-09-09 14:22] LABS: CARBON DIOXIDE < 5.0 mmol/L (21-32)
[2022-09-09] MEDS: MAGNESIUM SULFATE 1 GRAM/100 mL PREMIX 1 G/100 ML BAG IV PRN ×2 (14:56→15:58)
[2022-09-09] MEDS: NovoLIN R (or HumuLIN R) IV PRN ×4 (14:57→19:50)
[2022-09-09 15:40] LABS: CALCIUM 8.6 mg/dL (8.5-10.1); CREATININE 1.51 mg/dL (0.55-1.02)
[2022-09-09 15:41] LABS: CARBON DIOXIDE 12.5 mmol/L (21-32)
[2022-09-09] MEDS ORDERED: LEVSIN/MAALOX/LIDOC VISC PO ONE (16:19)
[2022-09-09] MEDS ORDERED: PEPCID TAB 40 MG PO SCH (16:30)
[2022-09-09 18:56] LABS: CALCIUM 8.3 mg/dL (8.5-10.1); CREATININE 1.33 mg/dL (0.55-1.02)
[2022-09-09] MEDS ORDERED: D5 1/2 NS + KCL 20 MEQ/L 1,000 ML IV SCH (19:00)
[2022-09-09] MEDS: SNACK - Diabetic Appropriate PO SCH (19:28)
[2022-09-09] MEDS: ZOSYN VIAL 3.375 GRAMS 3.375 G in NS 100 ML IV 100 ML IV SCH (21:53)
[2022-09-09] MEDS: D5 1/2 NS + KCL 20 MEQ/L 1,000 ML IV SCH (21:54)
[2022-09-10] MEDS: NovoLIN R (or HumuLIN R) IV PRN (02:45)
[2022-09-10] MEDS: D5 1/2 NS + KCL 20 MEQ/L 1,000 ML IV SCH ×2 (02:50→05:51)
[2022-09-10] MEDS: NS 1,000 ML IV 1,000 ML IV SCH ×5 (04:51→20:55)
[2022-09-10] MEDS: ZOSYN VIAL 3.375 GRAMS 3.375 G in NS 100 ML IV 100 ML IV SCH ×3 (05:08→21:56)
[2022-09-10 05:29] LABS: BASOPHILS # (AUTO) 0.1 X10^3/uL (0.0-0.1); BASOPHILS % (AUTO) 0.5 % (0.2-1.0); HEMATOCRIT 37.5 % (36.0-47.0); HEMOGLOBIN 12.8 g/dL (12.0-16.0); LYMPHOCYTES # (AUTO) 2.3 X10^3/uL (1.3-2.9); LYMPHOCYTES % (AUTO) 8.8 % (21.0-51.0); MEAN CORPUSCULAR HEMOGLOBIN 29.7 pg (27.0-34.0); MEAN CORPUSCULAR HGB CONC 34.2 g/dL (33.0-35.0); MEAN CORPUSCULAR VOLUME 86.8 fL (80.0-100.0); MEAN PLATELET VOLUME 8.9 fL (7.4-11.0); MONOCYTES # (AUTO) 1.1 x10^3/uL (0.3-0.8); MONOCYTES % (AUTO) 4.4 % (0.0-13.0); NEUTROPHILS # (AUTO) 22.2 x10^3/uL (2.2-4.8); NEUTROPHILS % (AUTO) 86.3 % (42.0-75.0); RED BLOOD COUNT 4.32 X10^6/uL (3.5-5.4); RED CELL DISTRIBUTION WIDTH 14.2 % (11.6-16.5); WHITE BLOOD COUNT 25.7 X10^3/uL (3.6-10.0)
[2022-09-10 05:37] LABS: ABG ALLEN TEST POS; ABG BASE EXCESS -2.8 mmol/L (-2.0-2.0); ABG HCO3 20.6 mmol/L (22-26)
[2022-09-10 05:39] LABS: ALANINE AMINOTRANSFERASE 14 Units/L (12-78); ALBUMIN 2.8 g/dL (3.4-5.0); ALKALINE PHOSPHATASE 87 Units/L (46-116); ASPARTATE AMINO TRANSFERASE 14 Units/L (15-37); BLOOD UREA NITROGEN 10 mg/dL (7-18); CALCIUM 8.1 mg/dL (8.5-10.1); CARBON DIOXIDE 22.3 mmol/L (21-32); CHLORIDE 108 mmol/L (98-107); COR CA(FOR HYPOALB) 9.1 mg/dL (8.5-10.1); COR NA(FOR HYPERGLY) 142 mmol/L (136-145); CREATININE 1.03 mg/dL (0.55-1.02); MAGNESIUM 1.5 mg/dL (2.0-2.9); PHOSPHORUS 2.3 mg/dL (2.6-4.7); SODIUM 141 mmol/L (136-145); TOTAL PROTEIN 6.4 g/dL (6.4-8.2); eGFR NON BLACK RACES > 60 (>60)
[2022-09-10 05:59] LABS: PLATELET MORPHOLOGY COMMENT NORMAL (NORMAL)
[2022-09-10] MEDS ORDERED: PHARMACY CONSULT - VANCOMYCIN XX SCH (09:00)
[2022-09-10] MEDS ORDERED: LANTUS SC ONE (09:33)
[2022-09-10] MEDS: LR 1,000 ML IV 1,000 ML IV SCH ×2 (09:53→17:19)
[2022-09-10] MEDS: VANCOMYCIN IV *PREMIX 1.25 G/250 ML BAG 1.25 G/250 ML PIGGYBACK IV SCH ×2 (10:07→20:52)
[2022-09-10] MEDS: ZOFRAN INJ 4 MG VIAL IVP PRN ×2 (10:21→18:16)
[2022-09-10] MEDS: MAGNESIUM SULFATE 1 GRAM/100 mL PREMIX 1 G/100 ML BAG IV PRN (11:57)
[2022-09-10] MEDS: HumaLOG SC PRN ×2 (16:21→20:56)
--- NOTE | 2022-09-10 16:55 | CT ---
HISTORYINFECTION WORKUPSTUDYCHEST W/O CONCOMPARISONNone availableTECHNIQUEAxial images through the chest were performed without contrast. CT scan was performed following ALARA (As low as Reasonably Achievable).Coronal and Sagittal reformatted images were performed.FINDINGSThe thyroid gland is mildly diffuse enlarged. There is no axillary or dominant mediastinal adenopathy. The ascending aorta measures approximately 3.3 centimetersThere is no pleural or pericardial effusions. Patient is status post cholecystectomy, no adrenal masses, the spleen is nonenlarged, the stomach is no distended, there is a moderate hilar hernia.Lung windows: There is a focal subpleural radiopacity at the left lower lobe that it was felt to be atelectasis, no evidence of bronchiectasis or lung fibrosisNo dominant lung nodules.Bone windows no evidence of aggressive bone lesions. No acute fractures.IMPRESSIONFocal left lower lobe radiopacity, it was felt to be atelectasis and less likely pneumonia, clinical correlation is recommended.Minimal atelectasis in the right lower lobe.Electronically signed by: Eri Mancera (Sep 10, 2022 16:54:09)
[2022-09-10] MEDS: SNACK - Diabetic Appropriate PO SCH (19:59)
[2022-09-11] MEDS: LR 1,000 ML IV 1,000 ML IV SCH ×4 (04:01→16:09)
[2022-09-11] MEDS: ZOSYN VIAL 3.375 GRAMS 3.375 G in NS 100 ML IV 100 ML IV SCH ×3 (05:00→22:01)
[2022-09-11 05:05] LABS: BASOPHILS # (AUTO) 0.1 X10^3/uL (0.0-0.1); BASOPHILS % (AUTO) 0.8 % (0.2-1.0); HEMOGLOBIN 12.8 g/dL (12.0-16.0); LYMPHOCYTES # (AUTO) 1.9 X10^3/uL (1.3-2.9); LYMPHOCYTES % (AUTO) 10.1 % (21.0-51.0); MEAN CORPUSCULAR HEMOGLOBIN 29.6 pg (27.0-34.0); MEAN CORPUSCULAR HGB CONC 33.8 g/dL (33.0-35.0); MEAN CORPUSCULAR VOLUME 87.6 fL (80.0-100.0); MEAN PLATELET VOLUME 8.9 fL (7.4-11.0); MONOCYTES # (AUTO) 0.8 x10^3/uL (0.3-0.8); MONOCYTES % (AUTO) 4.3 % (0.0-13.0); NEUTROPHILS # (AUTO) 15.7 x10^3/uL (2.2-4.8); NEUTROPHILS % (AUTO) 84.8 % (42.0-75.0); RED BLOOD COUNT 4.34 X10^6/uL (3.5-5.4); RED CELL DISTRIBUTION WIDTH 14.5 % (11.6-16.5); WHITE BLOOD COUNT 18.5 X10^3/uL (3.6-10.0)
[2022-09-11 05:12] LABS: ABG ALLEN TEST POS; ABG BASE EXCESS -9.2 mmol/L (-2.0-2.0); ABG HCO3 14.7 mmol/L (22-26)
[2022-09-11 05:18] LABS: ALANINE AMINOTRANSFERASE 12 Units/L (12-78); ALBUMIN 2.9 g/dL (3.4-5.0); ALKALINE PHOSPHATASE 91 Units/L (46-116); ASPARTATE AMINO TRANSFERASE 12 Units/L (15-37); BLOOD UREA NITROGEN 6 mg/dL (7-18); CALCIUM 8.5 mg/dL (8.5-10.1); CARBON DIOXIDE 15.4 mmol/L (21-32); CHLORIDE 99 mmol/L (98-107); COR CA(FOR HYPOALB) 9.4 mg/dL (8.5-10.1); COR NA(FOR HYPERGLY) 139 mmol/L (136-145); CREATININE 0.82 mg/dL (0.55-1.02); MAGNESIUM 1.4 mg/dL (2.0-2.9); PHOSPHORUS 2.9 mg/dL (2.6-4.7); SODIUM 134 mmol/L (136-145); TOTAL PROTEIN 6.6 g/dL (6.4-8.2); eGFR NON BLACK RACES > 60 (>60)
[2022-09-11] MEDS: NS 1,000 ML IV 1,000 ML IV SCH ×3 (05:39→20:21)
[2022-09-11] MEDS: HumaLOG SC PRN (05:41)
[2022-09-11] MEDS: ZOFRAN INJ 4 MG VIAL IVP PRN ×2 (07:38→17:18)
[2022-09-11] MEDS: VANCOMYCIN IV *PREMIX 1.25 G/250 ML BAG 1.25 G/250 ML PIGGYBACK IV SCH (08:13)
[2022-09-11] MEDS ORDERED: NovoLIN N or HumuLIN N SC ONE (08:33)
[2022-09-11] MEDS ORDERED: NovoLIN N or HumuLIN N SC NR (08:54)
[2022-09-11] MEDS: MAGNESIUM SULFATE 1 GRAM/100 mL PREMIX 1 G/100 ML BAG IV PRN (13:51)
[2022-09-11] MEDS ORDERED: CATAPRES TAB 0.1 MG PO ONE (18:04)
[2022-09-11] MEDS: ZESTRIL TAB 40 MG PO SCH (18:19)
[2022-09-11] MEDS ORDERED: SNACK - Diabetic Appropriate PO SCH (20:00)
[2022-09-11] MEDS ORDERED: LOPRESSOR INJ 5 MG AMP IVP ONE (20:08)
[2022-09-11] MEDS ORDERED: NORVASC TAB 5 MG PO ONE (20:09)
[2022-09-11] MEDS ORDERED: PHARMACY COMMENT IV NR (20:30)
[2022-09-11] MEDS ORDERED: LANTUS SC SCH (21:00)
[2022-09-11 21:16] LABS: CREATININE 0.74 mg/dL (0.55-1.02); VANCOMYCIN,TROUGH 8.4 ug/mL (15-20)
[2022-09-11] MEDS: VANCOMYCIN IV *PREMIX 1.5 G/300 ML BAG 1.5 G/300 ML PIGGYBACK IV SCH (21:58)
[2022-09-12] MEDS: LR 1,000 ML IV 1,000 ML IV SCH ×5 (02:33→22:55)
[2022-09-12 05:06] LABS: HEMOGLOBIN 12.7 g/dL (12.0-16.0); MEAN CORPUSCULAR HGB CONC 34.3 g/dL (33.0-35.0); MEAN PLATELET VOLUME 8.4 fL (7.4-11.0); RED CELL DISTRIBUTION WIDTH 14.3 % (11.6-16.5); WHITE BLOOD COUNT 11.2 X10^3/uL (3.6-10.0)
[2022-09-12] MEDS: ZOSYN VIAL 3.375 GRAMS 3.375 G in NS 100 ML IV 100 ML IV SCH ×3 (05:15→21:25)
[2022-09-12 05:18] LABS: BASOPHILS % (AUTO) 0.3 % (0.2-1.0); EOSINOPHILS # (AUTO) 0.1 x10^3/uL (0.0-0.2); HEMATOCRIT 36.9 % (36.0-47.0); LYMPHOCYTES # (AUTO) 3.8 X10^3/uL (1.3-2.9); MEAN CORPUSCULAR HEMOGLOBIN 29.9 pg (27.0-34.0); MEAN CORPUSCULAR VOLUME 87.1 fL (80.0-100.0); MONOCYTES # (AUTO) 0.7 x10^3/uL (0.3-0.8); MONOCYTES % (AUTO) 6.7 % (0.0-13.0); NEUTROPHILS # (AUTO) 6.5 x10^3/uL (2.2-4.8); RED BLOOD COUNT 4.24 X10^6/uL (3.5-5.4)
[2022-09-12 05:21] LABS: ALANINE AMINOTRANSFERASE 10 Units/L (12-78); ALBUMIN 2.5 g/dL (3.4-5.0); ALKALINE PHOSPHATASE 92 Units/L (46-116); ASPARTATE AMINO TRANSFERASE 9 Units/L (15-37); BLOOD UREA NITROGEN 6 mg/dL (7-18); CARBON DIOXIDE 25.4 mmol/L (21-32); CHLORIDE 103 mmol/L (98-107); COR CA(FOR HYPOALB) 9.2 mg/dL (8.5-10.1); CREATININE 0.83 mg/dL (0.55-1.02); MAGNESIUM 1.6 mg/dL (2.0-2.9); PHOSPHORUS 2.8 mg/dL (2.6-4.7); SODIUM 137 mmol/L (136-145); TOTAL PROTEIN 5.8 g/dL (6.4-8.2); eGFR NON BLACK RACES > 60 (>60)
[2022-09-12 05:40] LABS: ABG BASE EXCESS 0.8 mmol/L (-2.0-2.0); ABG HCO3 24.2 mmol/L (22-26)
[2022-09-12 05:41] LABS: ABG ALLEN TEST POS
[2022-09-12] MEDS ORDERED: POTASSIUM CHL 60 MEQ/NS 0.45% 500 ML IV PRN ×2 (07:00→14:55)
[2022-09-12] MEDS ORDERED: MICRO K EXTEN CAP 10 MEQ PO PRN ×2 (07:00→14:56)
[2022-09-12] MEDS ORDERED: K-RIDER 10 MEQ/NS 100 ML 10 MEQ/100 ML BAG IV PRN ×2 (07:00→14:55)
[2022-09-12] MEDS ORDERED: POTASSIUM CHLORIDE LIQ 20 MEQ UDC PO PRN ×2 (07:00→14:55)
[2022-09-12] MEDS ORDERED: POTASSIUM CHL 40 MEQ/NS 0.45% 500 ML IV PRN ×2 (07:00→14:55)
[2022-09-12] MEDS ORDERED: KLOR-CON PO PRN ×2 (07:00→14:56)
[2022-09-12] MEDS ORDERED: K-DUR TAB 20 MEQ PO PRN ×2 (07:00→14:56)
[2022-09-12] MEDS: MAGNESIUM SULFATE 1 GRAM/100 mL PREMIX 1 G/100 ML BAG IV PRN ×3 (07:27→10:12)
[2022-09-12] MEDS: NS 1,000 ML IV 1,000 ML IV SCH ×4 (07:28→20:30)
[2022-09-12] MEDS: ZESTRIL TAB 40 MG PO SCH (08:12)
[2022-09-12] MEDS ORDERED: NORVASC TAB 5 MG PO SCH (09:00)
[2022-09-12] MEDS: VANCOMYCIN IV *PREMIX 1.5 G/300 ML BAG 1.5 G/300 ML PIGGYBACK IV SCH (10:09)
[2022-09-12] MEDS ORDERED: D50W ABBOJECT SYR IV PRN (14:47)
[2022-09-12] MEDS ORDERED: MAGNESIUM SULFATE 1 GRAM/100 mL PREMIX 1 G/100 ML BAG IV PRN (14:51)
[2022-09-12] MEDS ORDERED: ZOFRAN INJ 4 MG VIAL IVP PRN (14:52)
[2022-09-12] MEDS ORDERED: HumaLOG SC PRN (14:52)
[2022-09-12] MEDS ORDERED: SNACK - Diabetic Appropriate PO SCH (20:00)
[2022-09-12] MEDS ORDERED: VANCOMYCIN IV *PREMIX 1.5 G/300 ML BAG 1.5 G/300 ML PIGGYBACK IV SCH (21:00)
[2022-09-12] MEDS ORDERED: LANTUS SC SCH ×2 (21:00)
[2022-09-13 04:26] LABS: BASOPHILS % (AUTO) 0.5 % (0.2-1.0); EOSINOPHILS # (AUTO) 0.2 x10^3/uL (0.0-0.2); EOSINOPHILS % (AUTO) 2.8 % (0.9-2.9); HEMATOCRIT 36.8 % (36.0-47.0); HEMOGLOBIN 12.7 g/dL (12.0-16.0); LYMPHOCYTES # (AUTO) 3.6 X10^3/uL (1.3-2.9); LYMPHOCYTES % (AUTO) 48.5 % (21.0-51.0); MEAN CORPUSCULAR HEMOGLOBIN 29.9 pg (27.0-34.0); MEAN CORPUSCULAR HGB CONC 34.5 g/dL (33.0-35.0); MEAN CORPUSCULAR VOLUME 86.6 fL (80.0-100.0); MEAN PLATELET VOLUME 8.3 fL (7.4-11.0); MONOCYTES # (AUTO) 0.6 x10^3/uL (0.3-0.8); MONOCYTES % (AUTO) 7.5 % (0.0-13.0); NEUTROPHILS % (AUTO) 40.7 % (42.0-75.0); RED BLOOD COUNT 4.25 X10^6/uL (3.5-5.4); WHITE BLOOD COUNT 7.5 X10^3/uL (3.6-10.0)
[2022-09-13] MEDS ORDERED: NS 100 ML IV 100 ML ONE (04:33)
[2022-09-13 04:38] LABS: ALANINE AMINOTRANSFERASE 12 Units/L (12-78); ALBUMIN 2.3 g/dL (3.4-5.0); ALKALINE PHOSPHATASE 70 Units/L (46-116); ASPARTATE AMINO TRANSFERASE 14 Units/L (15-37); BLOOD UREA NITROGEN 6 mg/dL (7-18); CALCIUM 7.7 mg/dL (8.5-10.1); CARBON DIOXIDE 27.1 mmol/L (21-32); CHLORIDE 107 mmol/L (98-107); COR CA(FOR HYPOALB) 9.1 mg/dL (8.5-10.1); CREATININE 0.73 mg/dL (0.55-1.02); SODIUM 141 mmol/L (136-145); TOTAL PROTEIN 5.4 g/dL (6.4-8.2); eGFR NON BLACK RACES > 60 (>60)
[2022-09-13] MEDS: ZOSYN VIAL 3.375 GRAMS 3.375 G in NS 100 ML IV 100 ML IV SCH (05:15)
[2022-09-13] MEDS: LR 1,000 ML IV 1,000 ML IV SCH (07:10)
[2022-09-13] MEDS: NS 1,000 ML IV 1,000 ML IV SCH (07:10)
[2022-09-13] MEDS ORDERED: PHARMACY COMMENT IV NR ×2 (08:30→09:00)
[2022-09-13] MEDS ORDERED: ZESTRIL TAB 40 MG PO SCH (09:00)
[2022-09-13] MEDS ORDERED: NORVASC TAB 5 MG PO SCH (09:00)
[2022-09-13] MEDS ORDERED: BACTRIM DS TAB PO SCH (10:00)
[2022-09-13 10:42] VITALS: BP 149/72
== END 2022-09-13 11:00 | disposition home or self-care (01) | DRG 639 ==
LOC: ER 08:34 → ICU 12:24 → ER 12:58
PROVIDERS: ADMIT Obstetrics & Gynecology Obstetrics; ATTEND Obstetrics & Gynecology Obstetrics
DX: E03.9 Hypothyroidism, unspecified; F41.9 Anxiety disorder, unspecified; Z20.822 Contact with and (suspected) exposure to COVID-19; R51.9 Headache, unspecified; E10.10 Type 1 diabetes mellitus with ketoacidosis without coma; R41.82 Altered mental status, unspecified; E10.40 Type 1 diabetes mellitus with diabetic neuropathy, unspecified

== ENCOUNTER 2023-08-21 09:04 | Inpatient (IN) ==
[2023-08-21] MEDS ORDERED: NS 1,000 ML IV 1,000 ML ONE ×2 (09:15→11:35)
[2023-08-21 09:22] VITALS: BMI 36.6
[2023-08-21] MEDS ORDERED: NS 1,000 ML IV 1,000 ML IV ONE ×2 (09:26→11:36)
--- NOTE | 2023-08-21 09:34 | DR.HYPOGLY ---
HPI Time Seen Time Seen by Provider: 08/21/23 09:34 PCP Primary Care Physician: Uriostegui Complaint Chief Complaint Doctors Comments: 48-year-old female brought in via EMS for evaluation. Patient started feeling poorly 2 days ago. Started with nausea and vomiting. Worsened last p.m. Patient had profuse vomiting, abdominal discomfort. Started off as tight sensation in her abdomen, felt bloated. Pain located epigastric region, sharp, does not radiate. Worse with palpation, nothing makes it better. Patient denies any fevers or chills. She denies any sinus congestion sore throat or coughing. Has been moving her bowels. Has been urinating frequently. Glucose elevated at home. Patient is a insulin-dependent diabetic. She has been in DKA in the past. Last time approximate 1 year ago. Chief Complaint:: Pt presents to ER via EMS w/ c/o epigastric pain, "burning and hurting", n/v x2 days, unable to take PO meds d/t vomitting. COVID-19 Coronavirus risk:travel/contact w/high risk person: No Has patient experienced Coronavirus symptoms: No Nurses notes reviewed Nurses Notes Review: Yes Source History Provided: Patient and EMS Mode of Arrival Mode of Arrival: EMS Timing Onset of Chief Complaint: 08/21/23 PMH PMH Past Medical History: Yes Past Medical History: Arthritis, Depression, Diabetes, Dyslipidemia, GERD and Hypertension Past Surgical History: Yes Surgical History: , Cholecystectomy, Hysterectomy, Ortho Surgery and Tonsillectomy Family History History of Family Medical Conditions: Yes Family Medical History: Diabetes Mellitus, Cancer, OR, Coronary Artery Disease, Heart Failure, Sudden Cardiac and Hypertension Social History Does patient currently use any type of tobacco product: Yes Have you used tobacco products in the last 12 months: Yes Type of Tobacco Use: Cigarettes Does any household member use tobacco: Yes Alcohol Use: None Do you use any recreational Drugs:: No Lives With: Family Lives Where: Home Travel Risk Coronavirus risk:travel/contact w/high risk person: No Has patient experienced Coronavirus symptoms: No Infectious screening In the last 2 months have you had wt loss of >10#?: NO Have you had fever, night sweats or hemotysis?: No Have you traveled outside the country in the last 6 months?: No Isolation: Standard ROS Review of Systems Constitutional: Weakness Eyes: No Symptoms Reported ENTM: No Symptoms Reported Respiratoy: No Symptoms Reported Cardiovascular: No Symptoms Reported Gastrointestinal/Abdominal: See HPI Genitourinary: No Symptoms Reported Neurological: No Symptoms Reported Musculoskeletal: No Symptoms Reported Integumentary: No Symptoms Reported Hematologic/Lymphatic: No Symptoms Reported All Other Systems: Reviewed and Negative PE Vital Signs Vitals: Vital Signs Temperature 98.7 F Pulse Rate 106 Pulse Rate 108 Pulse Rate 109 Pulse Rate 107 Pulse Rate 108 Pulse Rate 106 Pulse Rate 106 Pulse Rate 106 Pulse Rate 107 Pulse Rate 103 Pulse Rate 104 Pulse Rate 84 Pulse Rate 106 Pulse Rate 104 Pulse Rate 104 Pulse Rate 103 Pulse Rate 108 Pulse Rate 108 Pulse Rate 107 Respiratory Rate 20 Respiratory Rate 24 Respiratory Rate 31 Respiratory Rate 27 Respiratory Rate 30 Respiratory Rate 27 Respiratory Rate 33 Respiratory Rate 36 Respiratory Rate 28 Blood Pressure 111/56 Blood Pressure 118/58 Blood Pressure 140/61 Blood Pressure 168/71 Blood Pressure 182/75 Blood Pressure 178/77 Blood Pressure 175/75 Blood Pressure 184/80 Blood Pressure 168/74 Blood Pressure 162/65 Blood Pressure 170/79 O2 Sat by Pulse Oximetry 94 O2 Sat by Pulse Oximetry 93 O2 Sat by Pulse Oximetry 93 O2 Sat by Pulse Oximetry 93 O2 Sat by Pulse Oximetry 93 O2 Sat by Pulse Oximetry 93 O2 Sat by Pulse Oximetry 95 O2 Sat by Pulse Oximetry 94 O2 Sat by Pulse Oximetry 94 O2 Sat by Pulse Oximetry 95 O2 Sat by Pulse Oximetry 97 O2 Sat by Pulse Oximetry 97 O2 Sat by Pulse Oximetry 96 O2 Sat by Pulse Oximetry 96 O2 Sat by Pulse Oximetry 97 O2 Sat by Pulse Oximetry 95 O2 Sat by Pulse Oximetry 95 O2 Sat by Pulse Oximetry 94 O2 Sat by Pulse Oximetry 94 General General Appearance: Alert and Other (Appears uncomfortable) Eyes Eye exam: PERRL and EOMI ENT ENT Exam: Normal Exam and Mucous Membranes Moist Neck Neck Exam: Normal Inspection Respiratory Respiratory Exam: Normal Lung Sounds Bilat; negative Accessory Muscle Use or Re spiratory Distress Cardiovascular Cardiovascular Exam: Regular Rate, Normal Rhythm and Normal Heart Sounds Abdominal Exam Abdominal Exam: Normal Bowel Sounds, Soft and Tenderness (Epigastric tenderness, no rebound) Extremities Extremities Exam: Normal Inspection; negative Edema Neurologic Neurological Exam: Alert, Oriented X3 and CN II-XII Intact; negative Motor Sensory Deficit Skin Skin Exam: Warm and Dry COURSE Treatment Treatment: 39-year-old female with elevated glucose, history of diabetes. Clinically probable DKA. Work-up initiated. Patient given IV fluids, IV Zofr an/Protonix. Glucose in the upper 500s. Patient was given 10 mg of IV regular insulin. Labs showed the patient to have low bicarb at 18, low sodium at 150 (corrected 140). Does have 4+ glucose and ketones in her urine. ABG shows pH of 7.26. Patient given IV morphine/Zofran for pain. Recommend admission for further treatment of her DKA. Discussed with Dr. Fritz, covering for Dr. Uriostegui, accepts admission. Insulin drip started. ROR Labs Reviewed 08/21/23 09:21 08/21/23 09:21 Laboratory: WBC 15.0 X10^3/uL (3.6-10.0) H 08/21/23 09:21 RBC 4.76 X10^6/uL (3.5-5.4) 08/21/23 09:21 Hgb 14.0 g/dL (12.0-16.0) 08/21/23 09: Hct 43.1 % (36.0-47.0) 08/21/23 09:21 MCV 90.4 fL (80.0-100.0) 08/21/23 09:21 MCH 29.4 pg (27.0-34.0) 08/21/23 09:21 MCHC 32.5 g/dL (33.0-35.0) L 08/21/23 09:21 RDW 14.6 % (11.6-16.5) 08/21/23 09:21 Plt Count 303 X10^3/uL (150.0-450.0) 08/21/23 09:21 MPV 8.6 fL (7.4-11.0) 08/21/23 09:21 Neut % (Auto) 84.9 % (42.0-75.0) H 08/21/23 09:21 Lymph % (Auto) 10.5 % (21.0-51.0) L 08/21/23 09:21 [place] % (Auto) 4.5 % (0.0-13.0) 08/21/23 09:21 Eos % (Auto) 0.0 % (0.9-2.9) L 08/21/23 09:21 Baso % (Auto) 0.1 % (0.2-1.0) L 08/21/23 09:21 Neut # (Auto) 12.8 x10^3/uL (2.2-4.8) H 08/21/23 09:21 Lymph # (Auto) 1.6 X10^3/uL (1.3-2.9) 08/21/23 09:21 [place] # (Auto) 0.7 x10^3/uL (0.3-0.8) 08/21/23 09:21 Eos # (Auto) 0.0 x10^3/uL (0.0-0.2) 08/21/23 09:21 Baso # (Auto) 0.0 X10^3/uL (0.0-0.1) 08/21/23 09:21 Absolute Nucleated RBC 0.1 /100WBC 08/21/23 09:21 Sample Site Rrad 08/21/23 11:32 ABG pH 7.260 (7.35-7.45) L 08/21/23 11:32 ABG pCO2 30.0 mmHg (35.0-45.0) L 08/21/23 11:32 ABG pO2 95.0 mmHg (80.0-100.0) 08/21/23 11:32 ABG HCO3 13.5 mmol/L (22-26) L* 08/21/23 11:32 ABG O2 Saturation 96.0 % (90-100) 08/21/23 11:32 ABG Base Excess -12.3 mmol/L (-2.0-2.0) L 08/21/23 11:32 Yared Test Pos 08/21/23 11:32 A-a Gradient 17.0 mmHg 08/21/23 11:32 FiO2 21.0 08/21/23 11:32 Blood Gas Comments Pt barbie well elj cdn 08/21/23 11:32 Sodium 130 mmol/L (136-145) L 08/21/23 09:21 Corrected Sodium 140 mmol/L (136-145) 08/21/23 09:21 Potassium 5.1 mmol/L (3.5-5.1) 08/21/23 09:21 Chloride 92 mmol/L (98-107) L 08/21/23 09:21 Carbon Dioxide 18.2 mmol/L (21-32) L 08/21/23 09:21 BUN 13 mg/dL (7-18) 08/21/23 09:21 Creatinine 1.25 mg/dL (0.55-1.02) H 08/21/23 09:21 Est GFR (MDRD) Af Amer 59 (>60) 08/21/23 09:21 Est GFR (MDRD) Non-Af 48 (>60) L 08/21/23 09:21 Glucose 508 mg/dL (65-99) H* 08/21/23 09:21 POC Glucose (mg/dL) 492 mg/dL (65-99) H 08/21/23 09:08 Calcium 9.5 mg/dL (8.5-10.1) 08/21/23 09:21 Corrected Calcium 10.1 mg/dL (8.5-10.1) 08/21/23 09:21 Total Bilirubin 1.00 mg/dL (0.2-1.0) 08/21/23 09:21 AST 14 Units/L (15-37) L 08/21/23 09:21 ALT 14 Units/L (12-78) 08/21/23 09:21 Alkaline Phosphatase 146 Units/L (46-116) H 08/21/23 09:21 Total Protein 8.1 g/dL (6.4-8.2) 08/21/23 09:21 Albumin 3.3 g/dL (3.4-5.0) L 08/21/23 09:21 Globulin 4.8 g/dL (2.5-4.5) H 08/21/23 09:21 Albumin/Globulin Ratio 0.7 Ratio (1.1-2.1) L 08/21/23 09:21 Lipase 17 Units/L (16-77) 08/21/23 09:21 Specimen Type Clean catch urine 08/21/23 10: Urine Color Yellow (YELLOW) 08/21/23 10: Urine Appearance Clear (CLEAR) 08/21/23 10: Urine pH 5.0 (5.0 - 8.0) 08/21/23 10: Ur Specific [place] 1.015 (1.000-1.030) 08/21/23 10: Urine Protein 2+ (NEGATIVE) 08/21/23 10:28 Urine Glucose (UA) 4+ (NEGATIVE) 08/21/23 10:28 Urine Ketones 4+ (NEGATIVE) 08/21/23 10:28 Urine Blood Negative (NEGATIVE) 08/21/23 10:28 Urine Nitrite Negative (NEGATIVE) 08/21/23 10:28 Urine Bilirubin Negative (NEGATIVE) 08/21/23 10:28 Urine Urobilinogen Normal (NORMAL) 08/21/23 10:28 Ur Leukocyte Esterase Negative (NEGATIVE) 08/21/23 10:28 Urine RBC 0-2 /HPF (0-3) 08/21/23 10:28 Urine WBC 5-10 /HPF (0-5) A 08/21/23 10:28 Ur Squamous Epith Cells Rare /HPF (NEGATIVE) 08/21/23 10:28 Urine Bacteria Trace /HPF (NEGATIVE) 08/21/23 10:28 Urine Yeast Few /HPF (NEGATIVE) 08/21/23 10:28 Ur Culture Indicated? No/not indicated 08/21/23 10:28 Acetone, Semi-Quant Small (NEGATIVE) H 08/21/23 09:21 Opioid Opioid Risk Tool Age (Zack box if 16-45): No History of Preadolescent Sexual Abuse: No Psychological Disease: Depression Total: 0 Total Score Risk Category: Low Risk Copyright: Bradley ALTMAN predicting aberrant behaviors Discharge Plan Diagnosis Discharge Problem: DKA (diabetic ketoacidosis), Vomiting Discharge Plan Patient Disposition: ADMITTED INPATIENT Condition: Stable Orders to Discharge Patient Discharge Orders: Transfer (Routine); Ordered 08/21/23 Ordered By: Eb Myles
[2023-08-21] MEDS ORDERED: ZOFRAN INJ 4 MG VIAL IVP ONE ×2 (09:36→11:26)
[2023-08-21] MEDS ORDERED: PROTONIX INJ 40 MG VIAL IVP ONE (09:36)
[2023-08-21] MEDS ORDERED: PROTONIX INJ 40 MG VIAL ONE (09:39)
[2023-08-21] MEDS ORDERED: ZOFRAN INJ 4 MG VIAL ONE ×2 (09:39→11:27)
[2023-08-21 09:49] LABS: BASOPHILS % (AUTO) 0.1 % (0.2-1.0); HEMATOCRIT 43.1 % (36.0-47.0); LYMPHOCYTES # (AUTO) 1.6 X10^3/uL (1.3-2.9); LYMPHOCYTES % (AUTO) 10.5 % (21.0-51.0); MEAN CORPUSCULAR HEMOGLOBIN 29.4 pg (27.0-34.0); MEAN CORPUSCULAR HGB CONC 32.5 g/dL (33.0-35.0); MEAN CORPUSCULAR VOLUME 90.4 fL (80.0-100.0); MEAN PLATELET VOLUME 8.6 fL (7.4-11.0); MONOCYTES # (AUTO) 0.7 x10^3/uL (0.3-0.8); MONOCYTES % (AUTO) 4.5 % (0.0-13.0); NEUTROPHILS # (AUTO) 12.8 x10^3/uL (2.2-4.8); NEUTROPHILS % (AUTO) 84.9 % (42.0-75.0); PLATELET COUNT 303 X10^3/uL (150.0-450.0); RED BLOOD COUNT 4.76 X10^6/uL (3.5-5.4); RED CELL DISTRIBUTION WIDTH 14.6 % (11.6-16.5)
[2023-08-21 09:55] LABS: SERUM ACETONE SMALL (NEGATIVE)
[2023-08-21 09:57] LABS: ALANINE AMINOTRANSFERASE 14 Units/L (12-78); ALBUMIN 3.3 g/dL (3.4-5.0); ALKALINE PHOSPHATASE 146 Units/L (46-116); ASPARTATE AMINO TRANSFERASE 14 Units/L (15-37); BLOOD UREA NITROGEN 13 mg/dL (7-18); CALCIUM 9.5 mg/dL (8.5-10.1); CARBON DIOXIDE 18.2 mmol/L (21-32); CHLORIDE 92 mmol/L (98-107); COR CA(FOR HYPOALB) 10.1 mg/dL (8.5-10.1); COR NA(FOR HYPERGLY) 140 mmol/L (136-145); CREATININE 1.25 mg/dL (0.55-1.02); LIPASE 17 Units/L (16-77); POTASSIUM 5.1 mmol/L (3.5-5.1); SODIUM 130 mmol/L (136-145); TOTAL PROTEIN 8.1 g/dL (6.4-8.2); eGFR NON BLACK RACES 48 (>60)
[2023-08-21] MEDS ORDERED: NovoLIN R (or HumuLIN R) IV STA (10:00)
[2023-08-21 10:01] LABS: GLUCOSE 508 mg/dL (65-99)
[2023-08-21] MEDS ORDERED: NovoLIN R (or HumuLIN R) ONE (10:09)
[2023-08-21 10:39] LABS: BILIRUBIN,URINE NEGATIVE (NEGATIVE); BLOOD/HEMOGLOBIN,URINE NEGATIVE (NEGATIVE); GLUCOSE, URINE 4+ (NEGATIVE); KETONES,URINE 4+ (NEGATIVE); LEUKOCYTE ESTERASE ,URINE NEGATIVE (NEGATIVE); NITRITES,URINE NEGATIVE (NEGATIVE); PROTEIN,URINE 2+ (NEGATIVE); UROBILINOGEN,URINE NORMAL (NORMAL)
[2023-08-21 10:52] LABS: APPEARANCE,URINE CLEAR (CLEAR); COLOR,URINE YELLOW (YELLOW)
[2023-08-21 10:53] LABS: BACTERIA,URINE TRACE /HPF (NEGATIVE); RBC,URINE 0-2 /HPF (0-3); SQUAMOUS EPITHELIAL CELL,UR RARE /HPF (NEGATIVE); YEAST,URINE FEW /HPF (NEGATIVE)
[2023-08-21] MEDS ORDERED: DILAUDID INJ IVP ONE (11:26)
[2023-08-21] MEDS ORDERED: DILAUDID INJ ONE (11:27)
[2023-08-21 11:33] LABS: ABG BASE EXCESS -12.3 mmol/L (-2.0-2.0)
[2023-08-21 11:34] LABS: ABG ALLEN TEST POS; ABG HCO3 13.5 mmol/L (22-26)
[2023-08-21] MEDS ORDERED: MYXREDLIN 100 UNIT/100 ML BAG 100 UNIT/100 ML PLAST..BAG IV ONE (13:04)
[2023-08-21] MEDS ORDERED: MYXREDLIN 100 UNIT/100 ML BAG 100 UNIT/100 ML PLAST..BAG IV PRN ×3 (13:10→14:33)
--- NOTE | 2023-08-21 14:24 | RAD ---
EXAM:CHEST, 1 VIEWHISTORY:ELEV GLUCOSE; HYSTER, GB, CSECT, TONSILS, DM, HTNCOMPARISON:None.TECHNIQUE:AP view of the chestFINDINGS:Apical lordotic view performed. Soft tissue attenuation from the chest wall limits evaluation. the cardiac and mediastinal contours are within normal limits. The lungs are clear without focal consolidation or segmental collapse. No pleural effusion or pneumothorax.IMPRESSION:No acute pulmonary process.THIS IS AN ELECTRONICALLY VERIFIED FINAL [id number]/21/2023 2:21 PM - Electronically signed by Lang Conner MD
[2023-08-21] MEDS ORDERED: D50W ABBOJECT SYR IV PRN (14:32)
[2023-08-21] MEDS ORDERED: CONSULT PHARMACY - POTASSIUM & MAGNESIUM XX SCH (14:32)
[2023-08-21 18:33] LABS: GLUCOSE, URINE 4+ (NEGATIVE); NITRITES,URINE NEGATIVE (NEGATIVE)
[2023-08-21 18:46] LABS: UROBILINOGEN,URINE NORMAL (NORMAL)
[2023-08-21 18:48] LABS: BILIRUBIN,URINE 1+ (NEGATIVE); BLOOD/HEMOGLOBIN,URINE 1+ (NEGATIVE); KETONES,URINE 3+ (NEGATIVE); LEUKOCYTE ESTERASE ,URINE 1+ (NEGATIVE); PROTEIN,URINE 2+ (NEGATIVE)
[2023-08-21 18:51] LABS: APPEARANCE,URINE SLIGHTLY HAZY (CLEAR); BACTERIA,URINE TRACE /HPF (NEGATIVE); COLOR,URINE ORANGE (YELLOW); HYALINE CASTS, URINE FEW /LPF (NEGATIVE); RBC,URINE 0-2 /HPF (0-3); SQUAMOUS EPITHELIAL CELL,UR FEW /HPF (NEGATIVE); YEAST,URINE FEW /HPF (NEGATIVE)
[2023-08-21] MEDS: NS 1,000 ML IV 1,000 ML IV SCH (19:27)
[2023-08-21] MEDS: SNACK - Diabetic Appropriate PO SCH (20:19)
[2023-08-22 05:29] LABS: BASOPHILS % (AUTO) 0.1 % (0.2-1.0); EOSINOPHILS % (AUTO) 0.2 % (0.9-2.9); LYMPHOCYTES # (AUTO) 2.7 X10^3/uL (1.3-2.9); LYMPHOCYTES % (AUTO) 21.2 % (21.0-51.0); MEAN CORPUSCULAR HEMOGLOBIN 29.5 pg (27.0-34.0); MEAN CORPUSCULAR HGB CONC 33.2 g/dL (33.0-35.0); MEAN PLATELET VOLUME 8.3 fL (7.4-11.0); MONOCYTES # (AUTO) 1.1 x10^3/uL (0.3-0.8); MONOCYTES % (AUTO) 8.3 % (0.0-13.0); NEUTROPHILS # (AUTO) 8.9 x10^3/uL (2.2-4.8); NEUTROPHILS % (AUTO) 70.2 % (42.0-75.0); PLATELET COUNT 281 X10^3/uL (150.0-450.0); RED BLOOD COUNT 4.05 X10^6/uL (3.5-5.4); RED CELL DISTRIBUTION WIDTH 14.4 % (11.6-16.5); WHITE BLOOD COUNT 12.7 X10^3/uL (3.6-10.0)
[2023-08-22 05:49] LABS: ALANINE AMINOTRANSFERASE 9 Units/L (12-78); ALBUMIN 2.5 g/dL (3.4-5.0); ALKALINE PHOSPHATASE 107 Units/L (46-116); ASPARTATE AMINO TRANSFERASE 10 Units/L (15-37); BLOOD UREA NITROGEN 20 mg/dL (7-18); CALCIUM 8.5 mg/dL (8.5-10.1); CHLORIDE 98 mmol/L (98-107); COR CA(FOR HYPOALB) 9.7 mg/dL (8.5-10.1); COR NA(FOR HYPERGLY) 135 mmol/L (136-145); CREATININE 1.19 mg/dL (0.55-1.02); GLUCOSE 235 mg/dL (65-99); POTASSIUM 3.6 mmol/L (3.5-5.1); SODIUM 132 mmol/L (136-145); TOTAL PROTEIN 6.5 g/dL (6.4-8.2); eGFR NON BLACK RACES 51 (>60)
[2023-08-22] MEDS: NS 1,000 ML IV 1,000 ML IV SCH ×3 (06:00→15:30)
[2023-08-22] MEDS ORDERED: CONSULT PHARMACY - POTASSIUM & MAGNESIUM XX SCH (06:00)
--- NOTE | 2023-08-22 07:35 | DR.H&P ---
H&P History & Physical for Day of: H&P Date: 08/21/23 Chief Complaint Chief Complaint: Abdominal pain Nausea/vomiting Weakness Allergies Allergies Allergy/AdvReac Type Severity Reaction Status Date / Time latex Allergy Verified 08/21/23 09:22 History of Present Illness History of Present Illness: Patient is a 48-year-old female with a past medical history of type 1 diabetes mellitus presenting with abdominal pain, weakness, nausea and vomiting for the past 2 days. She reports that symptoms have been progressively getting worse. She feels like her abdomen is bloated. Labs/imaging: WBC 15, hemoglobin 14, platelets 303, sodium 140, potassium 5.1, creatinine 1.25, glucose 508, ABG: pH 7.26/CO2 30/O2 95/HCO3 13.5/ O2 sat 96% on room air. Chest x-ray was obtained that revealed no acute abnormalities or cardiopulmonary process. Lipase within normal limits. Will get A1c and UA. Patient is admitted for diabetic ketoacidosis. We will start on DKA protocol. Keep n.p.o. monitor with serial BMPs and fingerstick glucose checks. Continue to closely monitor patient and follow-up labs. Past Medical History Past Medical History: Arthritis, Depression, Diabetes, Dyslipidemia, GERD and Hypertension Past Surgical History Surgical History: Hysterectomy and Tonsillectomy Family History Family Medical History: Diabetes Mellitus, Cancer, OR and Hypertension Social History Does patient currently use any type of tobacco product: Yes Have you used tobacco products in the last 12 months: Yes Type of Tobacco Use: Cigarettes Does any household member use tobacco: Yes Alcohol Use: None Drug Use: None Medications Home Medications: Home Medications Medication Instructions Recorded Confirmed Type NK 08/21/23 08/21/23 History Labs 08/22/23 04:55 08/22/23 04:55 Labs: 08/21/23 18:25 Urine,Clean Catch Urine Culture - Preliminary Laboratory WBC 12.7 X10^3/uL (3.6-10.0) H 08/22/23 04:55 RBC 4.05 X10^6/uL (3.5-5.4) 08/22/23 04:55 Hgb 12.0 g/dL (12.0-16.0) D 08/22/23 04:55 Hct 36.0 % (36.0-47.0) 08/22/23 04:55 MCV 89.0 fL (80.0-100.0) 08/22/23 04:55 MCH 29.5 pg (27.0-34.0) 08/22/23 04:55 MCHC 33.2 g/dL (33.0-35.0) 08/22/23 04:55 RDW 14.4 % (11.6-16.5) 08/22/23 04:55 Plt Count 281 X10^3/uL (150.0-450.0) 08/22/23 04:55 MPV 8.3 fL (7.4-11.0) 08/22/23 04:55 Neut % (Auto) 70.2 % (42.0-75.0) 08/22/23 04:55 Lymph % (Auto) 21.2 % (21.0-51.0) 08/22/23 04:55 Bartholomew % (Auto) 8.3 % (0.0-13.0) 08/22/23 04:55 Eos % (Auto) 0.2 % (0.9-2.9) L 08/22/23 04:55 Baso % (Auto) 0.1 % (0.2-1.0) L 08/22/23 04:55 Neut # (Auto) 8.9 x10^3/uL (2.2-4.8) H 08/22/23 04:55 Lymph # (Auto) 2.7 X10^3/uL (1.3-2.9) 08/22/23 04:55 Bartholomew # (Auto) 1.1 x10^3/uL (0.3-0.8) H 08/22/23 04:55 Eos # (Auto) 0.0 x10^3/uL (0.0-0.2) 08/22/23 04:55 Baso # (Auto) 0.0 X10^3/uL (0.0-0.1) 08/22/23 04:55 Absolute Nucleated RBC 0.1 /100WBC 08/22/23 04:55 Sample Site Rrad 08/21/23 11:32 ABG pH 7.260 (7.35-7.45) L 08/21/23 11:32 ABG pCO2 30.0 mmHg (35.0-45.0) L 08/21/23 11:32 ABG pO2 95.0 mmHg (80.0-100.0) 08/21/23 11:32 ABG HCO3 13.5 mmol/L (22-26) L* 08/21/23 11:32 ABG O2 Saturation 96.0 % (90-100) 08/21/23 11:32 ABG Base Excess -12.3 mmol/L (-2.0-2.0) L 08/21/23 11:32 Yared Test Pos 08/21/23 11:32 A-a Gradient 17.0 mmHg 08/21/23 11:32 FiO2 21.0 08/21/23 11:32 Blood Gas Comments Pt barbie well elj cdn 08/21/23 11:32 Sodium 132 mmol/L (136-145) L 08/22/23 04:55 Corrected Sodium 135 mmol/L (136-145) L 08/22/23 04:55 Potassium 3.6 mmol/L (3.5-5.1) 08/22/23 04:55 Chloride 98 mmol/L (98-107) 08/22/23 04:55 Carbon Dioxide 20.0 mmol/L (21-32) L 08/22/23 04:55 BUN 20 mg/dL (7-18) H 08/22/23 04:55 Creatinine 1.19 mg/dL (0.55-1.02) H 08/22/23 04:55 Est GFR (MDRD) Af Amer > 60 (>60) 08/22/23 04:55 Est GFR (MDRD) Non-Af 51 (>60) L 08/22/23 04:55 Glucose 235 mg/dL (65-99) H 08/22/23 04:55 POC Glucose (mg/dL) 181 mg/dL (65-99) H 08/22/23 07:08 Hemoglobin A1c 10.0 % 08/21/23 09:21 Calcium 8.5 mg/dL (8.5-10.1) 08/22/23 04:55 Corrected Calcium 9.7 mg/dL (8.5-10.1) 08/22/23 04:55 Magnesium 1.5 mg/dL (2.0-2.9) L 08/22/23 04:55 Total Bilirubin 0.50 mg/dL (0.2-1.0) 08/22/23 04:55 AST 10 Units/L (15-37) L 08/22/23 04:55 ALT 9 Units/L (12-78) L 08/22/23 04:55 Alkaline Phosphatase 107 Units/L (46-116) 08/22/23 04:55 Total Protein 6.5 g/dL (6.4-8.2) 08/22/23 04:55 Albumin 2.5 g/dL (3.4-5.0) L 08/22/23 04:55 Globulin 4.0 g/dL (2.5-4.5) 08/22/23 04:55 Albumin/Globulin Ratio 0.6 Ratio (1.1-2.1) L 08/22/23 04:55 Lipase 17 Units/L (16-77) 08/21/23 09:21 Specimen Type Clean catch urine 08/21/23 18:25 Urine Color [place] (YELLOW) 08/21/23 18:25 Urine Appearance Slightly hazy (CLEAR) 08/21/23 18:25 Urine pH 5.0 (5.0 - 8.0) 08/21/23 18:25 Ur Specific [place] 1.015 (1.000-1.030) 08/21/23 18:25 Urine Protein 2+ (NEGATIVE) 08/21/23 18:25 Urine Glucose (UA) 4+ (NEGATIVE) 08/21/23 18:25 Urine Ketones 3+ (NEGATIVE) 08/21/23 18:25 Urine Blood 1+ (NEGATIVE) 08/21/23 18:25 Urine Nitrite Negative (NEGATIVE) 08/21/23 18:25 Urine Bilirubin 1+ (NEGATIVE) 08/21/23 18:25 Urine Urobilinogen Normal (NORMAL) 08/21/23 18:25 Ur Leukocyte Esterase 1+ (NEGATIVE) 08/21/23 18:25 Urine RBC 0-2 /HPF (0-3) 08/21/23 18:25 Urine WBC 20-30 /HPF (0-5) A 08/21/23 18:25 Ur Squamous Epith Cells Few /HPF (NEGATIVE) 08/21/23 18:25 Urine Bacteria Trace /HPF (NEGATIVE) 08/21/23 18:25 Hyaline Casts Few /LPF (NEGATIVE) 08/21/23 18:25 Urine Mucus Few /HPF (NEGATIVE) 08/21/23 18:25 Urine Yeast Few /HPF (NEGATIVE) 08/21/23 18:25 Ur Culture Indicated? Yes/culture set up 08/21/23 18:25 Acetone, Semi-Quant Small (NEGATIVE) H 08/21/23 09:21 Review of Systems Constitutional: Weakness Eyes: No Symptoms Reported ENT: No Symptoms Reported Respiratory: No Symptoms Reported Cardiovascular: No Symptoms Reported Gastrointestinal: Nausea, Vomiting and Abdominal Pain Genitourinary: No Symptoms Reported Musculoskeletal: No Symptoms Reported Skin: No Symptoms Reported Neurological: No Symptoms Reported Physical Exam Vital Signs: Vital Signs Temperature 98.9 F Temperature 98.5 F Pulse Rate 101 Pulse Rate 100 Pulse Rate 93 Pulse Rate 86 Pulse Rate 91 Pulse Rate 91 Pulse Rate 87 Respiratory Rate 21 Respiratory Rate 24 Respiratory Rate 28 Respiratory Rate 22 Respiratory Rate 22 Respiratory Rate 30 Respiratory Rate 24 Blood Pressure 149/67 Blood Pressure 154/70 Blood Pressure 124/59 Blood Pressure 100/57 Blood Pressure 98/53 Blood Pressure 123/59 Blood Pressure 128/59 O2 Sat by Pulse Oximetry 94 O2 Sat by Pulse Oximetry 94 O2 Sat by Pulse Oximetry 94 O2 Sat by Pulse Oximetry 93 O2 Sat by Pulse Oximetry 92 O2 Sat by Pulse Oximetry 95 O2 Sat by Pulse Oximetry 92 Oriented: Normal Eyes: Normal Ear: Normal Nose: Normal Throat: Normal Respiratory: Clear Throughout Cardiovascular: Normal : Normal Auscultation: Bowel Sounds: Normal Palpation: Normal Tenderness: Normal Skin: Normal Musculoskeletal: Normal Psychiatric: Normal Mood Description: Calm and Appropriate Affect: Normal Speech Pattern: Clear and Appropriate Assessment/Plan (1) DKA (diabetic ketoacidosis): Narrative Support Text: DKA protocol Continue to closely monitor Status: Acute Review H&P Reviewed: Yes Patient was examined?: Yes
[2023-08-22] MEDS ORDERED: HumuLIN 70/30 (NovoLIN 70/30) SC SCH (08:40)
[2023-08-22] MEDS: MAGNESIUM SULFATE 1 GRAM/100 mL PREMIX 1 G/100 ML BAG IV SCH ×2 (08:47→11:33)
[2023-08-22] MEDS: K-RIDER 10 MEQ/NS 100 ML 20 MEQ/200 ML BAG IV ONE ×2 (10:00→13:26)
[2023-08-22] MEDS: ZOFRAN INJ 4 MG VIAL IVP PRN ×3 (10:18→20:38)
--- NOTE | 2023-08-22 12:06 | EKG ---
Test Reason : CP Blood Pressure : */* mmHG Vent. Rate : 105 BPM Atrial Rate : 105 BPM P-R Int : 140 ms QRS Dur : 80 ms QT Int : 332 ms P-R-T Axes : 70 67 38 degrees QTc Int : 438 ms Sinus tachycardia Possible Left atrial enlargement Borderline ECG No previous ECGs available Confirmed by Fidel Linton ([id number]) on 08/23/2023 10:19:32 AM Referred By: Confirmed By: Fidel Linton
[2023-08-22] MEDS: NovoLIN R (or HumuLIN R) IV PRN ×2 (12:07→15:44)
[2023-08-22] MEDS: MORPHINE SULFATE INJ 2 MG INJ IVP PRN ×2 (12:08→19:23)
[2023-08-22 12:30] LABS: CREATINE KINASE 23 Units/L (26-192)
--- NOTE | 2023-08-22 13:27 | PCM.PROG ---
Progress Note Progress Note for Day of Date of Exam: 08/22/23 Subjective Subjective: Patient is a 48-year-old female with a past medical history of type 1 diabetes mellitus admitted for diabetic ketoacidosis. This morning she is resting in bed. No acute events overnight. Labs/imaging: WBC 12.7, hemoglobin 12, platelets 281, sodium 135, potassium 3.6, creatinine 1.19, glucose 235, A1c: 10, UA c/w infection, Urine culture pending. Pt has responded well to DKA protocol. Will stop insulin gtt and start on Novolin 70/30 30units BID, SSI. Can change diet to diabetic diet 1800cal, continue with fingerstick glucose checks. IVF NS@125ml/h. Will add IV Rocephin due to UA results, while culture pending. Otherwise, continue with current treatment plan. Continue to closely monitor patient and follow-up labs. Past Medical Family Social History Allergies: Allergies latex Allergy (Verified 08/21/23 09:22) Review of Systems ROS changes noted: see HPI Vital Signs and I&O's Vital Signs: Vital Signs Pulse Rate 101 Respiratory Rate 18 Respiratory Rate 21 Blood Pressure 149/67 O2 Sat by Pulse Oximetry 94 Intake and Output: Intake & Output 08/19/23 08/20/23 08/21/23 08/22/23 23:59 23:59 23:59 23:59 Intake Total 1344 / 1344 705 / 705 Balance 1344 / 1344 705 / 705 Physical Exam Oriented: Normal Eyes: Normal Ear: Normal Nose: Normal Throat: Normal Respiratory: Normal Cardiovascular: Normal : Normal Auscultation: Bowel Sounds: Normal Tenderness: Normal Skin: Normal Musculoskeletal: Normal Psychiatric: Normal Mood Description: Calm and Appropriate Affect: Normal Speech Pattern: Clear and Appropriate Laboratory and Diagnostics 08/22/23 04:55 08/22/23 04:55 Labs: 08/21/23 18:25 Urine,Clean Catch Urine Culture - Preliminary Laboratory WBC 12.7 X10^3/uL (3.6-10.0) H 08/22/23 04:55 RBC 4.05 X10^6/uL (3.5-5.4) 08/22/23 04:55 Hgb 12.0 g/dL (12.0-16.0) D 08/22/23 04:55 Hct 36.0 % (36.0-47.0) 08/22/23 04:55 MCV 89.0 fL (80.0-100.0) 08/22/23 04:55 MCH 29.5 pg (27.0-34.0) 08/22/23 04:55 MCHC 33.2 g/dL (33.0-35.0) 08/22/23 04:55 RDW 14.4 % (11.6-16.5) 08/22/23 04:55 Plt Count 281 X10^3/uL (150.0-450.0) 08/22/23 04:55 MPV 8.3 fL (7.4-11.0) 08/22/23 04:55 Neut % (Auto) 70.2 % (42.0-75.0) 08/22/23 04:55 Lymph % (Auto) 21.2 % (21.0-51.0) 08/22/23 04:55 [place] % (Auto) 8.3 % (0.0-13.0) 08/22/23 04:55 Eos % (Auto) 0.2 % (0.9-2.9) L 08/22/23 04:55 Baso % (Auto) 0.1 % (0.2-1.0) L 08/22/23 04:55 Neut # (Auto) 8.9 x10^3/uL (2.2-4.8) H 08/22/23 04:55 Lymph # (Auto) 2.7 X10^3/uL (1.3-2.9) 08/22/23 04:55 [place] # (Auto) 1.1 x10^3/uL (0.3-0.8) H 08/22/23 04:55 Eos # (Auto) 0.0 x10^3/uL (0.0-0.2) 08/22/23 04:55 Baso # (Auto) 0.0 X10^3/uL (0.0-0.1) 08/22/23 04:55 Absolute Nucleated RBC 0.1 /100WBC 08/22/23 04:55 Sample Site Rrad 08/21/23 11:32 ABG pH 7.260 (7.35-7.45) L 08/21/23 11:32 ABG pCO2 30.0 mmHg (35.0-45.0) L 08/21/23 11:32 ABG pO2 95.0 mmHg (80.0-100.0) 08/21/23 11:32 ABG HCO3 13.5 mmol/L (22-26) L* 08/21/23 11:32 ABG O2 Saturation 96.0 % (90-100) 08/21/23 11:32 ABG Base Excess -12.3 mmol/L (-2.0-2.0) L 08/21/23 11:32 Yared Test Pos 08/21/23 11:32 A-a Gradient 17.0 mmHg 08/21/23 11:32 FiO2 21.0 08/21/23 11:32 Blood Gas Comments Pt barbie well elj cdn 08/21/23 11:32 Sodium 132 mmol/L (136-145) L 08/22/23 04:55 Corrected Sodium 135 mmol/L (136-145) L 08/22/23 04:55 Potassium 3.6 mmol/L (3.5-5.1) 08/22/23 04:55 Chloride 98 mmol/L (98-107) 08/22/23 04:55 Carbon Dioxide 20.0 mmol/L (21-32) L 08/22/23 04:55 BUN 20 mg/dL (7-18) H 08/22/23 04:55 Creatinine 1.19 mg/dL (0.55-1.02) H 08/22/23 04:55 Est GFR (MDRD) Af Amer > 60 (>60) 08/22/23 04:55 Est GFR (MDRD) Non-Af 51 (>60) L 08/22/23 04:55 Glucose 235 mg/dL (65-99) H 08/22/23 04:55 POC Glucose (mg/dL) 400 mg/dL (65-99) H 08/22/23 11:32 Hemoglobin A1c 10.0 % 08/21/23 09:21 Calcium 8.5 mg/dL (8.5-10.1) 08/22/23 04:55 Corrected Calcium 9.7 mg/dL (8.5-10.1) 08/22/23 04:55 Magnesium 1.5 mg/dL (2.0-2.9) L 08/22/23 04:55 Total Bilirubin 0.50 mg/dL (0.2-1.0) 08/22/23 04:55 AST 10 Units/L (15-37) L 08/22/23 04:55 ALT 9 Units/L (12-78) L 08/22/23 04:55 Alkaline Phosphatase 107 Units/L (46-116) 08/22/23 04:55 Creatine Kinase 23 Units/L (26-192) L 08/22/23 12:05 Troponin I High Sens < 4.0 ng/L (4.0-60.0) L 08/22/23 12:05 Total Protein 6.5 g/dL (6.4-8.2) 08/22/23 04:55 Albumin 2.5 g/dL (3.4-5.0) L 08/22/23 04:55 Globulin 4.0 g/dL (2.5-4.5) 08/22/23 04:55 Albumin/Globulin Ratio 0.6 Ratio (1.1-2.1) L 08/22/23 04:55 Lipase 17 Units/L (16-77) 08/21/23 09:21 Specimen Type Clean catch urine 08/21/23 18:25 Urine Color [place] (YELLOW) 08/21/23 18:25 Urine Appearance Slightly hazy (CLEAR) 08/21/23 18:25 Urine pH 5.0 (5.0 - 8.0) 08/21/23 18:25 Ur Specific [place] 1.015 (1.000-1.030) 08/21/23 18:25 Urine Protein 2+ (NEGATIVE) 08/21/23 18:25 Urine Glucose (UA) 4+ (NEGATIVE) 08/21/23 18:25 Urine Ketones 3+ (NEGATIVE) 08/21/23 18:25 Urine Blood 1+ (NEGATIVE) 08/21/23 18:25 Urine Nitrite Negative (NEGATIVE) 08/21/23 18:25 Urine Bilirubin 1+ (NEGATIVE) 08/21/23 18:25 Urine Urobilinogen Normal (NORMAL) 08/21/23 18:25 Ur Leukocyte Esterase 1+ (NEGATIVE) 08/21/23 18:25 Urine RBC 0-2 /HPF (0-3) 08/21/23 18:25 Urine WBC 20-30 /HPF (0-5) A 08/21/23 18:25 Ur Squamous Epith Cells Few /HPF (NEGATIVE) 08/21/23 18:25 Urine Bacteria Trace /HPF (NEGATIVE) 08/21/23 18:25 Hyaline Casts Few /LPF (NEGATIVE) 08/21/23 18:25 Urine Mucus Few /HPF (NEGATIVE) 08/21/23 18:25 Urine Yeast Few /HPF (NEGATIVE) 08/21/23 18:25 Ur Culture Indicated? Yes/culture set up 08/21/23 18:25 Acetone, Semi-Quant Small (NEGATIVE) H 08/21/23 09:21 Plan (1) DKA (diabetic ketoacidosis): Status: Acute Narrative Support Text: Start Novolin 70/30 30 units BID., and SSI. A1c 10. (2) Cystitis: Status: Acute Narrative Support Text: IV rocephin, urine culture pending.
[2023-08-22] MEDS: HumuLIN 70/30 (NovoLIN 70/30) SC SCH (16:31)
[2023-08-22] MEDS: SNACK - Diabetic Appropriate PO SCH ×2 (19:22)
[2023-08-22] MEDS: PEPCID TAB 20 MG PO SCH (20:33)
[2023-08-22] MEDS ORDERED: TYLENOL 325 MG TAB PO PRN (22:38)
[2023-08-22] MEDS ORDERED: ZESTRIL TAB 20 MG ONE (22:47)
[2023-08-22] MEDS: ZESTRIL TAB 20 MG PO SCH (22:55)
[2023-08-23] MEDS: NS 1,000 ML IV 1,000 ML IV SCH ×4 (02:09→20:20)
[2023-08-23] MEDS: ZOFRAN INJ 4 MG VIAL IVP PRN (02:09)
[2023-08-23] MEDS: PHENERGAN INJ 25 MG IM PRN (03:18)
[2023-08-23 04:55] LABS: BASOPHILS % (AUTO) 0.1 % (0.2-1.0); HEMATOCRIT 40.7 % (36.0-47.0); HEMOGLOBIN 13.3 g/dL (12.0-16.0); LYMPHOCYTES # (AUTO) 1.4 X10^3/uL (1.3-2.9); LYMPHOCYTES % (AUTO) 9.1 % (21.0-51.0); MEAN CORPUSCULAR HEMOGLOBIN 29.7 pg (27.0-34.0); MEAN CORPUSCULAR HGB CONC 32.7 g/dL (33.0-35.0); MEAN CORPUSCULAR VOLUME 90.9 fL (80.0-100.0); MEAN PLATELET VOLUME 8.3 fL (7.4-11.0); MONOCYTES # (AUTO) 0.5 x10^3/uL (0.3-0.8); MONOCYTES % (AUTO) 3.5 % (0.0-13.0); NEUTROPHILS # (AUTO) 13.2 x10^3/uL (2.2-4.8); NEUTROPHILS % (AUTO) 87.3 % (42.0-75.0); PLATELET COUNT 358 X10^3/uL (150.0-450.0); RED BLOOD COUNT 4.48 X10^6/uL (3.5-5.4); RED CELL DISTRIBUTION WIDTH 14.7 % (11.6-16.5); WHITE BLOOD COUNT 15.1 X10^3/uL (3.6-10.0)
[2023-08-23 04:57] LABS: CALCIUM 8.8 mg/dL (8.5-10.1); CHLORIDE 96 mmol/L (98-107); SODIUM 131 mmol/L (136-145)
[2023-08-23 05:12] LABS: ALANINE AMINOTRANSFERASE 9 Units/L (12-78); ALBUMIN 2.9 g/dL (3.4-5.0); ALKALINE PHOSPHATASE 129 Units/L (46-116); ASPARTATE AMINO TRANSFERASE 11 Units/L (15-37); BLOOD UREA NITROGEN 14 mg/dL (7-18); COR CA(FOR HYPOALB) 9.7 mg/dL (8.5-10.1); COR NA(FOR HYPERGLY) 140 mmol/L (136-145); CREATININE 1.11 mg/dL (0.55-1.02); GLUCOSE 464 mg/dL (65-99); MAGNESIUM 1.6 mg/dL (2.0-2.9); TOTAL PROTEIN 7.5 g/dL (6.4-8.2); eGFR NON BLACK RACES 56 (>60)
[2023-08-23 05:14] LABS: CARBON DIOXIDE 13.5 mmol/L (21-32); POTASSIUM 5.6 mmol/L (3.5-5.1)
[2023-08-23] MEDS ORDERED: CONSULT PHARMACY - POTASSIUM & MAGNESIUM XX SCH (06:00)
[2023-08-23] MEDS: HumuLIN 70/30 (NovoLIN 70/30) SC SCH ×2 (06:33→16:41)
[2023-08-23] MEDS: NovoLIN R (or HumuLIN R) IV PRN ×3 (06:35→16:41)
[2023-08-23] MEDS: PEPCID TAB 20 MG PO SCH ×2 (09:35→20:18)
[2023-08-23] MEDS: MAG-OX TAB PO SCH ×2 (09:35→10:43)
[2023-08-23] MEDS ORDERED: ROCEPHIN VIAL 1 GRAM IV SCH (10:00)
[2023-08-23] MEDS: ROCEPHIN VIAL 1 GRAM 1 G in NS 100 ML IV 100 ML IV SCH (10:43)
--- NOTE | 2023-08-23 13:14 | PCM.PROG ---
Progress Note Progress Note for Day of Date of Exam: 08/23/23 Subjective Subjective: Patient is a 48-year-old female with a past medical history of type 1 diabetes mellitus admitted for diabetic ketoacidosis. This morning she is sitting in the recliner. No acute events overnight. She has been able to tolerate some food intake. Her glucose levels were elevated this morning. Labs/imaging: WBC 15.1, hemoglobin 13.3, platelets 358, sodium 131, potassium 5.6, creatinine 1.11, glucose 464, A1c: 10, Urine culture positive for E coli, susceptible to Rocephin. Will increase Novolin 70/30 to 40units BID, SSI. Continue diabetic diet 1800cal, continue with fingerstick glucose checks. IVF NS@125ml/h. We will bolus 1 L normal saline fluid. Otherwise, continue with current treatment plan. Continue to closely monitor patient and follow-up labs. Past Medical Family Social History Allergies: Allergies latex Allergy (Verified 08/21/23 09:22) Review of Systems ROS changes noted: see HPI Vital Signs and I&O's Vital Signs: Vital Signs Pulse Rate 115 Respiratory Rate 27 Blood Pressure 127/67 O2 Sat by Pulse Oximetry 99 Intake and Output: Intake & Output 08/20/23 08/21/23 08/22/23 08/23/23 23:59 23:59 23:59 23:59 Intake Total 1344 / 1344 2948 / 2948 777 / 777 Output Total 150 / 150 Balance 1344 / 1344 2798 / 2798 777 / 777 Physical Exam Oriented: Normal Eyes: Normal Ear: Normal Nose: Normal Throat: Normal Respiratory: Normal Cardiovascular: Normal : Normal Auscultation: Bowel Sounds: Normal Tenderness: Normal Skin: Normal Musculoskeletal: Normal Psychiatric: Normal Mood Description: Calm and Appropriate Affect: Normal Speech Pattern: Clear and Appropriate Laboratory and Diagnostics 08/23/23 04:35 08/23/23 06:05 Labs: 08/21/23 18:25 Urine,Clean Catch Urine Culture - Final Escherichia Coli Laboratory WBC 15.1 X10^3/uL (3.6-10.0) H 08/23/23 04:35 RBC 4.48 X10^6/uL (3.5-5.4) 08/23/23 04:35 Hgb 13.3 g/dL (12.0-16.0) 08/23/23 04:35 Hct 40.7 % (36.0-47.0) 08/23/23 04:35 MCV 90.9 fL (80.0-100.0) 08/23/23 04:35 MCH 29.7 pg (27.0-34.0) 08/23/23 04:35 MCHC 32.7 g/dL (33.0-35.0) L 08/23/23 04:35 RDW 14.7 % (11.6-16.5) 08/23/23 04:35 Plt Count 358 X10^3/uL (150.0-450.0) 08/23/23 04:35 MPV 8.3 fL (7.4-11.0) 08/23/23 04:35 Neut % (Auto) 87.3 % (42.0-75.0) H 08/23/23 04:35 Lymph % (Auto) 9.1 % (21.0-51.0) L 08/23/23 04:35 [place] % (Auto) 3.5 % (0.0-13.0) 08/23/23 04:35 Eos % (Auto) 0.0 % (0.9-2.9) L 08/23/23 04:35 Baso % (Auto) 0.1 % (0.2-1.0) L 08/23/23 04:35 Neut # (Auto) 13.2 x10^3/uL (2.2-4.8) H 08/23/23 04:35 Lymph # (Auto) 1.4 X10^3/uL (1.3-2.9) 08/23/23 04:35 [place] # (Auto) 0.5 x10^3/uL (0.3-0.8) 08/23/23 04:35 Eos # (Auto) 0.0 x10^3/uL (0.0-0.2) 08/23/23 04:35 Baso # (Auto) 0.0 X10^3/uL (0.0-0.1) 08/23/23 04:35 Absolute Nucleated RBC 0.0 /100WBC 08/23/23 04:35 Sample Site Rrad 08/21/23 11:32 ABG pH 7.260 (7.35-7.45) L 08/21/23 11:32 ABG pCO2 30.0 mmHg (35.0-45.0) L 08/21/23 11:32 ABG pO2 95.0 mmHg (80.0-100.0) 08/21/23 11:32 ABG HCO3 13.5 mmol/L (22-26) L* 08/21/23 11:32 ABG O2 Saturation 96.0 % (90-100) 08/21/23 11:32 ABG Base Excess -12.3 mmol/L (-2.0-2.0) L 08/21/23 11:32 Yared Test Pos 08/21/23 11:32 A-a Gradient 17.0 mmHg 08/21/23 11:32 FiO2 21.0 08/21/23 11:32 Blood Gas Comments Pt barbie well elj cdn 08/21/23 11:32 Sodium 131 mmol/L (136-145) L 08/23/23 04:35 Corrected Sodium 140 mmol/L (136-145) 08/23/23 04:35 Potassium 5.6 mmol/L (3.5-5.1) H 08/23/23 04:35 Chloride 96 mmol/L (98-107) L 08/23/23 04:35 Carbon Dioxide 13.5 mmol/L (21-32) L* 08/23/23 04:35 BUN 14 mg/dL (7-18) 08/23/23 04:35 Creatinine 1.11 mg/dL (0.55-1.02) H 08/23/23 04:35 Est GFR (MDRD) Af Amer > 60 (>60) 08/23/23 04:35 Est GFR (MDRD) Non-Af 56 (>60) L 08/23/23 04:35 Glucose 523 mg/dL (65-99) H* 08/23/23 06:05 POC Glucose (mg/dL) 399 mg/dL (65-99) H 08/23/23 10:34 Hemoglobin A1c 10.0 % 08/21/23 09:21 Calcium 8.8 mg/dL (8.5-10.1) 08/23/23 04:35 Corrected Calcium 9.7 mg/dL (8.5-10.1) 08/23/23 04:35 Magnesium 1.6 mg/dL (2.0-2.9) L 08/23/23 04:35 Total Bilirubin 0.60 mg/dL (0.2-1.0) 08/23/23 04:35 AST 11 Units/L (15-37) L 08/23/23 04:35 ALT 9 Units/L (12-78) L 08/23/23 04:35 Alkaline Phosphatase 129 Units/L (46-116) H 08/23/23 04:35 Creatine Kinase 23 Units/L (26-192) L 08/22/23 12:05 Troponin I High Sens < 4.0 ng/L (4.0-60.0) L 08/22/23 12:05 Total Protein 7.5 g/dL (6.4-8.2) 08/23/23 04:35 Albumin 2.9 g/dL (3.4-5.0) L 08/23/23 04:35 Globulin 4.6 g/dL (2.5-4.5) H 08/23/23 04:35 Albumin/Globulin Ratio 0.6 Ratio (1.1-2.1) L 08/23/23 04:35 Lipase 17 Units/L (16-77) 08/21/23 09:21 Specimen Type Clean catch urine 08/21/23 18:25 Urine Color [place] (YELLOW) 08/21/23 18:25 Urine Appearance Slightly hazy (CLEAR) 08/21/23 18:25 Urine pH 5.0 (5.0 - 8.0) 08/21/23 18:25 Ur Specific [place] 1.015 (1.000-1.030) 08/21/23 18:25 Urine Protein 2+ (NEGATIVE) 08/21/23 18:25 Urine Glucose (UA) 4+ (NEGATIVE) 08/21/23 18:25 Urine Ketones 3+ (NEGATIVE) 08/21/23 18:25 Urine Blood 1+ (NEGATIVE) 08/21/23 18:25 Urine Nitrite Negative (NEGATIVE) 08/21/23 18:25 Urine Bilirubin 1+ (NEGATIVE) 08/21/23 18:25 Urine Urobilinogen Normal (NORMAL) 08/21/23 18:25 Ur Leukocyte Esterase 1+ (NEGATIVE) 08/21/23 18:25 Urine RBC 0-2 /HPF (0-3) 08/21/23 18:25 Urine WBC 20-30 /HPF (0-5) A 08/21/23 18:25 Ur Squamous Epith Cells Few /HPF (NEGATIVE) 08/21/23 18:25 Urine Bacteria Trace /HPF (NEGATIVE) 08/21/23 18:25 Hyaline Casts Few /LPF (NEGATIVE) 08/21/23 18:25 Urine Mucus Few /HPF (NEGATIVE) 08/21/23 18:25 Urine Yeast Few /HPF (NEGATIVE) 08/21/23 18:25 Ur Culture Indicated? Yes/culture set up 08/21/23 18:25 Acetone, Semi-Quant Small (NEGATIVE) H 08/21/23 09:21 Plan (1) DKA (diabetic ketoacidosis): Status: Acute Narrative Support Text: Novolin 70/30 increased to 40 units BID, with SSI (2) Cystitis: Status: Acute Narrative Support Text: IV Rocephin Urine culture positive for E coli.
[2023-08-23] MEDS ORDERED: NS 1,000 ML IV 1,000 ML IV ONE (13:35)
[2023-08-23] MEDS ORDERED: ZESTRIL TAB 20 MG ONE (19:15)
[2023-08-23] MEDS ORDERED: COLACE CAP 100 MG PO PRN (19:19)
[2023-08-23] MEDS: SNACK - Diabetic Appropriate PO SCH ×2 (20:17)
[2023-08-24] MEDS: ZESTRIL TAB 20 MG PO SCH ×2 (02:05→11:30)
[2023-08-24] MEDS: NS 1,000 ML IV 1,000 ML IV SCH (04:42)
[2023-08-24 05:13] LABS: BASOPHILS # (AUTO) 0.1 X10^3/uL (0.0-0.1); BASOPHILS % (AUTO) 0.8 % (0.2-1.0); EOSINOPHILS % (AUTO) 0.2 % (0.9-2.9); HEMATOCRIT 32.6 % (36.0-47.0); HEMOGLOBIN 11.2 g/dL (12.0-16.0); LYMPHOCYTES % (AUTO) 39.4 % (21.0-51.0); MEAN CORPUSCULAR HEMOGLOBIN 30.1 pg (27.0-34.0); MEAN CORPUSCULAR HGB CONC 34.2 g/dL (33.0-35.0); MEAN PLATELET VOLUME 7.5 fL (7.4-11.0); MONOCYTES # (AUTO) 0.9 x10^3/uL (0.3-0.8); MONOCYTES % (AUTO) 9.2 % (0.0-13.0); NEUTROPHILS # (AUTO) 5.1 x10^3/uL (2.2-4.8); NEUTROPHILS % (AUTO) 50.4 % (42.0-75.0); PLATELET COUNT 308 X10^3/uL (150.0-450.0); RED BLOOD COUNT 3.71 X10^6/uL (3.5-5.4); RED CELL DISTRIBUTION WIDTH 14.8 % (11.6-16.5); WHITE BLOOD COUNT 10.2 X10^3/uL (3.6-10.0)
[2023-08-24 05:21] LABS: ALANINE AMINOTRANSFERASE 7 Units/L (12-78); ALBUMIN 2.1 g/dL (3.4-5.0); ALKALINE PHOSPHATASE 88 Units/L (46-116); ASPARTATE AMINO TRANSFERASE 10 Units/L (15-37); BLOOD UREA NITROGEN 15 mg/dL (7-18); CALCIUM 7.9 mg/dL (8.5-10.1); CARBON DIOXIDE 22.8 mmol/L (21-32); CHLORIDE 106 mmol/L (98-107); COR CA(FOR HYPOALB) 9.4 mg/dL (8.5-10.1); GLUCOSE 98 mg/dL (65-99); MAGNESIUM 1.7 mg/dL (2.0-2.9); POTASSIUM 3.9 mmol/L (3.5-5.1); SODIUM 137 mmol/L (136-145); TOTAL PROTEIN 5.8 g/dL (6.4-8.2); eGFR NON BLACK RACES 51 (>60)
[2023-08-24] MEDS: HumuLIN 70/30 (NovoLIN 70/30) SC SCH ×2 (09:28→11:05)
[2023-08-24] MEDS: PEPCID TAB 20 MG PO SCH (09:29)
[2023-08-24] MEDS: ROCEPHIN VIAL 1 GRAM 1 G in NS 100 ML IV 100 ML IV SCH (09:29)
[2023-08-24 10:20] VITALS: TEMP 98
[2023-08-24] MEDS: NovoLIN R (or HumuLIN R) IV PRN (11:05)
[2023-08-24] MEDS ORDERED: ZESTRIL TAB 20 MG ONE (11:30)
--- NOTE | 2023-08-24 11:51 | W.DIS.FURT ---
Summary of Discharge Discharge Summary of Date Date of Exam: 08/24/23 Admission Date Date of Admission: 08/21/23 Admission Diagnosis Patient Problems (Updated 08/22/23 @ 13:27 by Nishant Gorman) Vomiting (Acute) R11.10 DKA (diabetic ketoacidosis) (Acute) E11.10 Hospital Course: Patient is a 48-year-old female with a past medical history of type 1 diabetes mellitus admitted for diabetic ketoacidosis and E coli urinary tract infection. Her hospital/treatment couse included DKA protocol requiring insulin gtt. She was then able to be transitioned to Novolin 70/30 insulin and did well with that as dose was adjusted to 40 units BID with SSI. Rx sent. A1c: 10, Urine culture positive for E coli. She received rocephin, rx cipro sent. Pt responded well to treatments. She was discharged in stable condition, instructed to follow up with pcp in 1 week. Vital Signs: Vital Signs (72 hours) 08/21/23 11:32 08/21/23 11:34 08/21/23 11:35 Temperature Pulse Rate 107 H 106 H Respiratory Rate 24 Blood Pressure O2 Sat by Pulse Oximetry 94 L 94 L Oxygen Delivery Method 08/21/23 11:35 08/21/23 11:38 08/21/23 11:38 Temperature Pulse Rate 106 H Respiratory Rate Blood Pressure 182/75 168/71 O2 Sat by Pulse Oximetry 95 Oxygen Delivery Method 08/21/23 11:45 08/21/23 12:00 08/21/23 12:00 Temperature Pulse Rate 106 H 108 H Respiratory Rate Blood Pressure 140/61 O2 Sat by Pulse Oximetry 93 L 93 L Oxygen Delivery Method 08/21/23 12:15 08/21/23 12:30 08/21/23 12:30 Temperature Pulse Rate 107 H 109 H Respiratory Rate Blood Pressure 118/58 O2 Sat by Pulse Oximetry 93 L 93 L Oxygen Delivery Method 08/21/23 12:02 08/21/23 12:45 08/21/23 13:00 Temperature Pulse Rate 108 H 106 H Respiratory Rate 20 Blood Pressure O2 Sat by Pulse Oximetry 93 L 94 L Oxygen Delivery Method 08/21/23 13:00 08/21/23 13:15 08/21/23 13:30 Temperature Pulse Rate 107 H 103 H Respiratory Rate Blood Pressure 111/56 O2 Sat by Pulse Oximetry 94 L 93 L Oxygen Delivery Method 08/21/23 13:30 08/21/23 14:00 08/21/23 15:00 Temperature Pulse Rate 104 H 97 H Respiratory Rate 25 H 21 Blood Pressure 117/56 124/62 114/53 O2 Sat by Pulse Oximetry 96 96 Oxygen Delivery Method Room Air Room Air 08/21/23 13:20 08/21/23 16:00 08/21/23 17:00 Temperature 98.5 F Pulse Rate 93 H 92 H Respiratory Rate 17 20 Blood Pressure 114/54 114/53 O2 Sat by Pulse Oximetry 95 93 L Oxygen Delivery Method Room Air Room Air Room Air 08/21/23 18:00 08/21/23 19:00 08/21/23 20:00 Temperature 98.4 F Pulse Rate 90 92 H 88 Respiratory Rate 23 23 20 Blood Pressure 112/58 121/56 113/56 O2 Sat by Pulse Oximetry 94 L 93 L 94 L Oxygen Delivery Method Room Air Room Air Room Air 08/21/23 19:00 08/21/23 21:00 08/21/23 22:00 Temperature Pulse Rate 90 89 Respiratory Rate 26 H 29 H Blood Pressure 119/56 112/55 O2 Sat by Pulse Oximetry 94 L 94 L Oxygen Delivery Method Room Air Room Air Room Air 08/21/23 23:00 08/22/23 00:00 08/22/23 01:00 Temperature 98.5 F Pulse Rate 85 87 91 H Respiratory Rate 20 24 30 H Blood Pressure 114/55 128/59 123/59 O2 Sat by Pulse Oximetry 94 L 92 L 95 Oxygen Delivery Method Room Air Room Air Room Air 08/22/23 02:00 08/22/23 03:00 08/22/23 04:00 Temperature 98.9 F Pulse Rate 91 H 86 93 H Respiratory Rate 22 22 28 H Blood Pressure 98/53 100/57 124/59 O2 Sat by Pulse Oximetry 92 L 93 L 94 L Oxygen Delivery Method Room Air Room Air Room Air 08/22/23 05:00 08/22/23 06:00 08/22/23 07:00 Temperature Pulse Rate 100 H 101 H Respiratory Rate 24 21 Blood Pressure 154/70 149/67 O2 Sat by Pulse Oximetry 94 L 94 L Oxygen Delivery Method Room Air Room Air Room Air 08/22/23 12:08 08/22/23 07:00 08/22/23 08:00 Temperature 98.2 F Pulse Rate 94 H 91 H Respiratory Rate 18 22 23 Blood Pressure 119/58 139/64 O2 Sat by Pulse Oximetry 90 L 94 L Oxygen Delivery Method Room Air Room Air 08/22/23 09:00 08/22/23 10:00 08/22/23 11:00 Temperature Pulse Rate 97 H 112 H 108 H Respiratory Rate 14 28 H 24 Blood Pressure 172/74 148/64 152/67 O2 Sat by Pulse Oximetry 96 97 96 Oxygen Delivery Method Room Air Room Air Room Air 08/22/23 12:00 08/22/23 13:00 08/22/23 12:38 Temperature 98.0 F Pulse Rate 106 H 108 H Respiratory Rate 26 H 28 H 22 Blood Pressure 159/67 157/68 O2 Sat by Pulse Oximetry 97 98 Oxygen Delivery Method Room Air Room Air 08/22/23 14:00 08/22/23 15:00 08/22/23 16:00 Temperature 98.5 F Pulse Rate 100 H 96 H 97 H Respiratory Rate 29 H 30 H 30 H Blood Pressure 171/79 165/77 172/73 O2 Sat by Pulse Oximetry 95 93 L 95 Oxygen Delivery Method Room Air Room Air Room Air 08/22/23 17:00 08/22/23 18:00 08/22/23 19:00 Temperature Pulse Rate 96 H 95 H 91 H Respiratory Rate 22 22 30 H Blood Pressure 144/70 175/77 165/61 O2 Sat by Pulse Oximetry 99 95 93 L Oxygen Delivery Method Room Air Room Air Room Air 08/22/23 19:23 08/22/23 22:56 08/22/23 19:00 Temperature Pulse Rate Respiratory Rate 24 22 Blood Pressure O2 Sat by Pulse Oximetry Oxygen Delivery Method Room Air 08/22/23 20:00 08/22/23 19:53 08/22/23 21:00 Temperature 98.5 F Pulse Rate 92 H 91 H Respiratory Rate 29 H 24 26 H Blood Pressure 174/73 169/77 O2 Sat by Pulse Oximetry 93 L 93 L Oxygen Delivery Method Room Air Room Air 08/22/23 22:00 08/22/23 23:00 08/23/23 00:00 Temperature 98.3 F Pulse Rate 92 H 88 92 H Respiratory Rate 18 18 18 Blood Pressure 185/71 182/84 183/82 O2 Sat by Pulse Oximetry 94 L 94 L 95 Oxygen Delivery Method Room Air Room Air Room Air 08/22/23 23:56 08/23/23 01:00 08/23/23 02:00 Temperature Pulse Rate 92 H 101 H Respiratory Rate 22 23 26 H Blood Pressure 172/77 162/76 O2 Sat by Pulse Oximetry 96 96 Oxygen Delivery Method Room Air Room Air 08/23/23 03:00 08/23/23 04:00 08/23/23 05:00 Temperature 99.0 F Pulse Rate 110 H 110 H 116 H Respiratory Rate 18 26 H 26 H Blood Pressure 163/71 151/65 168/74 O2 Sat by Pulse Oximetry 96 96 94 L Oxygen Delivery Method Room Air Room Air Room Air 08/23/23 06:00 08/23/23 07:00 08/23/23 07:00 Temperature Pulse Rate 115 H 126 H Respiratory Rate 27 H 22 Blood Pressure 127/67 131/60 O2 Sat by Pulse Oximetry 99 97 Oxygen Delivery Method Room Air Room Air Room Air 08/23/23 08:00 08/23/23 09:00 08/23/23 10:00 Temperature 98.0 F Pulse Rate 123 H 114 H 109 H Respiratory Rate 26 H 27 H 29 H Blood Pressure 138/63 97/49 110/52 O2 Sat by Pulse Oximetry 100 99 99 Oxygen Delivery Method Room Air Room Air Room Air 08/23/23 11:00 08/23/23 12:00 08/23/23 13:00 Temperature 98.0 F Pulse Rate 101 H 92 H 94 H Respiratory Rate 19 22 24 Blood Pressure 90/53 105/55 124/59 O2 Sat by Pulse Oximetry 99 99 96 Oxygen Delivery Method Room Air Room Air Room Air 08/23/23 14:00 08/23/23 15:00 08/23/23 16:00 Temperature 98.6 F Pulse Rate 95 H 90 91 H Respiratory Rate 26 H 21 24 Blood Pressure 100/54 108/54 106/59 O2 Sat by Pulse Oximetry 95 96 95 Oxygen Delivery Method Room Air Room Air Room Air 08/23/23 17:00 08/23/23 18:00 08/23/23 19:00 Temperature Pulse Rate 86 96 H 86 Respiratory Rate 24 26 H 16 Blood Pressure 115/57 113/66 97/55 O2 Sat by Pulse Oximetry 96 97 97 Oxygen Delivery Method Room Air Room Air Room Air 08/23/23 19:00 08/23/23 20:00 08/23/23 21:00 Temperature 98.6 F Pulse Rate 81 83 Respiratory Rate 22 22 Blood Pressure 91/57 94/56 O2 Sat by Pulse Oximetry 94 L 92 L Oxygen Delivery Method Room Air Room Air Room Air 08/23/23 22:00 08/23/23 23:00 08/24/23 00:00 Temperature 99.0 F Pulse Rate 87 81 75 Respiratory Rate 23 24 19 Blood Pressure 93/57 89/45 88/53 O2 Sat by Pulse Oximetry 93 L 93 L 93 L Oxygen Delivery Method Room Air Room Air Room Air 08/24/23 01:00 08/24/23 02:00 08/24/23 03:00 Temperature Pulse Rate 77 75 77 Respiratory Rate 22 20 20 Blood Pressure 97/50 99/57 109/59 O2 Sat by Pulse Oximetry 92 L 92 L 94 L Oxygen Delivery Method Room Air Room Air Room Air 08/24/23 04:00 08/24/23 05:00 08/24/23 06:00 Temperature 98.4 F Pulse Rate 73 60 76 Respiratory Rate 18 22 20 Blood Pressure 115/57 144/63 136/61 O2 Sat by Pulse Oximetry 97 97 96 Oxygen Delivery Method Room Air Room Air Room Air 08/24/23 07:00 08/24/23 07:00 08/24/23 08:00 Temperature 98.0 F Pulse Rate 79 84 Respiratory Rate 22 27 H Blood Pressure 119/57 143/65 O2 Sat by Pulse Oximetry 97 97 Oxygen Delivery Method Room Air Room Air Room Air 08/24/23 09:00 08/24/23 10:00 Temperature Pulse Rate 88 74 Respiratory Rate 21 20 Blood Pressure 129/58 170/80 O2 Sat by Pulse Oximetry 98 98 Oxygen Delivery Method Room Air Room Air Labs: Laboratory Last Values WBC 10.2 X10^3/uL (3.6-10.0) H 08/24/23 04:35 RBC 3.71 X10^6/uL (3.5-5.4) 08/24/23 04:35 Hgb 11.2 g/dL (12.0-16.0) L D 08/24/23 04:35 Hct 32.6 % (36.0-47.0) L 08/24/23 04:35 MCV 88.0 fL (80.0-100.0) 08/24/23 04:35 MCH 30.1 pg (27.0-34.0) 08/24/23 04:35 MCHC 34.2 g/dL (33.0-35.0) 08/24/23 04:35 RDW 14.8 % (11.6-16.5) 08/24/23 04:35 Plt Count 308 X10^3/uL (150.0-450.0) 08/24/23 04:35 MPV 7.5 fL (7.4-11.0) 08/24/23 04:35 Neut % (Auto) 50.4 % (42.0-75.0) 08/24/23 04:35 Lymph % (Auto) 39.4 % (21.0-51.0) 08/24/23 04:35 Nicholas % (Auto) 9.2 % (0.0-13.0) 08/24/23 04:35 Eos % (Auto) 0.2 % (0.9-2.9) L 08/24/23 04:35 Baso % (Auto) 0.8 % (0.2-1.0) 08/24/23 04:35 Neut # (Auto) 5.1 x10^3/uL (2.2-4.8) H 08/24/23 04:35 Lymph # (Auto) 4.0 X10^3/uL (1.3-2.9) H 08/24/23 04:35 Nicholas # (Auto) 0.9 x10^3/uL (0.3-0.8) H 08/24/23 04:35 Eos # (Auto) 0.0 x10^3/uL (0.0-0.2) 08/24/23 04:35 Baso # (Auto) 0.1 X10^3/uL (0.0-0.1) 08/24/23 04:35 Absolute Nucleated RBC 0.2 /100WBC 08/24/23 04:35 Sample Site Rrad 08/21/23 11:32 ABG pH 7.260 (7.35-7.45) L 08/21/23 11:32 ABG pCO2 30.0 mmHg (35.0-45.0) L 08/21/23 11:32 ABG pO2 95.0 mmHg (80.0-100.0) 08/21/23 11:32 ABG HCO3 13.5 mmol/L (22-26) L* 08/21/23 11:32 ABG O2 Saturation 96.0 % (90-100) 08/21/23 11:32 ABG Base Excess -12.3 mmol/L (-2.0-2.0) L 08/21/23 11:32 Yared Test Pos 08/21/23 11:32 A-a Gradient 17.0 mmHg 08/21/23 11:32 FiO2 21.0 08/21/23 11:32 Blood Gas Comments Pt barbie well elj cdn 08/21/23 11:32 Sodium 137 mmol/L (136-145) 08/24/23 04:35 Corrected Sodium TNP 08/24/23 04:35 Potassium 3.9 mmol/L (3.5-5.1) 08/24/23 04:35 Chloride 106 mmol/L (98-107) 08/24/23 04:35 Carbon Dioxide 22.8 mmol/L (21-32) 08/24/23 04:35 BUN 15 mg/dL (7-18) 08/24/23 04:35 Creatinine 1.20 mg/dL (0.55-1.02) H 08/24/23 04:35 Est GFR (MDRD) Af Amer > 60 (>60) 08/24/23 04:35 Est GFR (MDRD) Non-Af 51 (>60) L 08/24/23 04:35 Glucose 98 mg/dL (65-99) 08/24/23 04:35 POC Glucose (mg/dL) 420 mg/dL (65-99) H 08/24/23 10:54 Hemoglobin A1c 10.0 % 08/21/23 09:21 Calcium 7.9 mg/dL (8.5-10.1) L 08/24/23 04:35 Corrected Calcium 9.4 mg/dL (8.5-10.1) 08/24/23 04:35 Magnesium 1.7 mg/dL (2.0-2.9) L 08/24/23 04:35 Total Bilirubin 0.20 mg/dL (0.2-1.0) 08/24/23 04:35 AST 10 Units/L (15-37) L 08/24/23 04:35 ALT 7 Units/L (12-78) L 08/24/23 04:35 Alkaline Phosphatase 88 Units/L (46-116) 08/24/23 04:35 Creatine Kinase 23 Units/L (26-192) L 08/22/23 12:05 Troponin I High Sens < 4.0 ng/L (4.0-60.0) L 08/22/23 12:05 Total Protein 5.8 g/dL (6.4-8.2) L 08/24/23 04:35 Albumin 2.1 g/dL (3.4-5.0) L 08/24/23 04:35 Globulin 3.7 g/dL (2.5-4.5) 08/24/23 04:35 Albumin/Globulin Ratio 0.6 Ratio (1.1-2.1) L 08/24/23 04:35 Lipase 17 Units/L (16-77) 08/21/23 09:21 Specimen Type Clean catch urine 08/21/23 18:25 Urine Color Stanley (YELLOW) 08/21/23 18:25 Urine Appearance Slightly hazy (CLEAR) 08/21/23 18:25 Urine pH 5.0 (5.0 - 8.0) 08/21/23 18:25 Ur Specific Gordon 1.015 (1.000-1.030) 08/21/23 18:25 Urine Protein 2+ (NEGATIVE) 08/21/23 18:25 Urine Glucose (UA) 4+ (NEGATIVE) 08/21/23 18:25 Urine Ketones 3+ (NEGATIVE) 08/21/23 18:25 Urine Blood 1+ (NEGATIVE) 08/21/23 18:25 Urine Nitrite Negative (NEGATIVE) 08/21/23 18:25 Urine Bilirubin 1+ (NEGATIVE) 08/21/23 18:25 Urine Urobilinogen Normal (NORMAL) 08/21/23 18:25 Ur Leukocyte Esterase 1+ (NEGATIVE) 08/21/23 18:25 Urine RBC 0-2 /HPF (0-3) 08/21/23 18:25 Urine WBC 20-30 /HPF (0-5) A 08/21/23 18:25 Ur Squamous Epith Cells Few /HPF (NEGATIVE) 08/21/23 18:25 Urine Bacteria Trace /HPF (NEGATIVE) 08/21/23 18:25 Hyaline Casts Few /LPF (NEGATIVE) 08/21/23 18:25 Urine Mucus Few /HPF (NEGATIVE) 08/21/23 18:25 Urine Yeast Few /HPF (NEGATIVE) 08/21/23 18:25 Ur Culture Indicated? Yes/culture set up 08/21/23 18:25 Acetone, Semi-Quant Small (NEGATIVE) H 08/21/23 09:21 Reason For Visit: DIABETIC KETOACIDOSIS, VOMITING Discharge Date Discharge Date: 08/24/23 Discharge Diagnosis All Active Problems (Updated 08/22/23 @ 13:27 by Nishant Gorman) Cystitis (Acute) Gingivitis (Acute) Insect bite (Acute) Urinary tract infection (Acute) Vomiting (Acute) Gingivitis (Acute) Chest pain (Acute) Back pain (Acute) Leukocytosis (Acute) Gastritis (Acute) Uncontrolled insulin dependent type 1 diabetes mellitus (Acute) Hyperglycemia (Acute) Bronchitis (Acute) Diabetes type 2, uncontrolled (Chronic) DKA (diabetic ketoacidosis) (Acute) GERD (gastroesophageal reflux disease) (Chronic) DJD (degenerative joint disease) (Chronic) Degenerative disc disease at L5-S1 level (Chronic) Diabetes mellitus (Acute) Plan of Treatment: Continue with present treatment and follow up plan. Pt is to keep follow up appointment as instructed and take medications as ordered. Discharge Medications Discharge Medications: latex Allergy (Verified 08/21/23 09:22) New Prescriptions insulin human U-100 NPH-regulr 70-30 mix 100 unit/mL subcutaneous susp (Novolin 70/30 U-100 Insulin) 40 unit (0.4 mL) subcut BID #10 mL 08/24/23 [Rx] lisinopril 20 mg tablet 20 mg PO QHS 30 days #30 tabs 08/24/23 [Rx] Discharge Plan Discharge Plan Hospital Course: Patient is a 48-year-old female with a past medical history of type 1 diabetes mellitus admitted for diabetic ketoacidosis and E coli urinary tract infection. Her hospital/treatment couse included DKA protocol requiring insulin gtt. She was then able to be transitioned to Novolin 70/30 insulin and did well with that as dose was adjusted to 40 units BID with SSI. Rx sent. A1c: 10, Urine culture positive for E coli. She received rocephin, rx cipro sent. Pt responded well to treatments. She was discharged in stable condition, instructed to follow up with pcp in 1 week. Patient Disposition: 01 HOME, SELF-CARE Condition: Stable Health Concerns: Post Hospitalization: new medications and changes needed to prevent readmission or further decline. Pt educated and given instructions on all concerns. Plan of Treatment: Continue with present treatment and follow up plan. Pt is to keep follow up appointment as instructed and take medications as ordered. Prescriptions: New lisinopril 20 mg Tablet 20 mg PO QHS 30 Days Qty: 30 0RF Novolin 70/30 U-100 Insulin 100 unit/mL (70-30) suspension 40 unit subcut BID Qty: 10 0RF ciprofloxacin HCl 500 mg tablet 500 mg PO BID 7 Days Qty: 14 0RF Follow ups/Referrals Follow ups/Referrals: DIANA CADENA [Primary Care Provider] - 3 days Instructions Stand Alone Forms: Excuse From Work or School, Post Hospital Follow Up Care
[2023-08-24] MEDS: PHENERGAN INJ 25 MG IM PRN (12:33)
[2023-08-24 13:20] VITALS: BP 163/77; PULSE 75; RESP 25; O2SAT 97
== END 2023-08-24 13:45 | disposition home or self-care (01) | DRG 638 ==
LOC: ER 09:04 → ICU 13:06
PROVIDERS: ADMIT Internal Medicine; ATTEND Obstetrics & Gynecology Obstetrics
DX: Z91.190 Patient's noncompliance with other medical treatment and regimen due to financial hardship; B96.29 Other Escherichia coli [E. coli] as the cause of diseases classified elsewhere; Z59.86 Financial insecurity; Z91.120 Patient's intentional underdosing of medication regimen due to financial hardship; N39.0 Urinary tract infection, site not specified; R10.13 Epigastric pain; E10.10 Type 1 diabetes mellitus with ketoacidosis without coma; E78.5 Hyperlipidemia, unspecified; I10 Essential (primary) hypertension; K21.9 Gastro-esophageal reflux disease without esophagitis; R11.2 Nausea with vomiting, unspecified